=== PATIENT | female | born 1950 | race Asian ===

== ENCOUNTER 2023-04-22 11:18 | Outpatient (AMB) | payer MEDICARE, SELFPAY ==
--- NOTE | 2023-04-22 11:23 | AM.OFFWIN_ITS ---
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 Reports noticing very itchy rash with redness. She has been using Hydrocortisone OTC with no relief. [facility] Social History Patient Tobacco Use Status: Never used Tobacco Review of Systems Const All systems reviewed & are unremarkable except as noted in HPI and below Physical Exam Vital Signs: Last Vital Signs Temp 97.6 F 04/22/23 11:25 Pulse 85 04/22/23 11:25 BP 140/80 H 04/22/23 11:25 Pulse Ox 96 04/22/23 11:25 Oxygen Delivery Method Room Air 04/22/23 11:25 BMI result Body Mass Index 27.4 Const General: comfortable and no acute distress Skin General skin exam: erythema and Excoriation Rashes: rashes noted (GROIN REGION AND INNER THIGHS. ) Assessment & Plan Assessment & Plan (1) Intertrigo: Code(s): L30.4 - Erythema intertrigo Plan: - DDx: candid Intertrigo vs Eczema Intertrigo - Keeping the affected area clean and dry and using powder to reduce friction may help soothe skin inflammation. Wearing loose-fitting clothing and losing weight may also help. Medications: New clotrimazole-betamethasone 1-0.05 % APPLY A THIN LAYER TO THE AFFECTED REGION TWICE A DAY. 1 appl topical BID 45 grams 0RF L30.4 - Erythema intertrigo Coding Level of Care Code New Pt Level 3 (14715) Diagnoses Intertrigo L30.4 Time Spent (min) 15
[2023-04-22 11:25] VITALS: BP 140/80; PULSE 85; TEMP 36.4; O2SAT 96; BMI 27.4
== END 2023-04-22 12:16 | disposition home or self-care (01) ==
PROVIDERS: PCP Internal Medicine; Visit Provider Nurse Practitioner Family
DX: L30.4 Erythema intertrigo (principal)
CPT/HCPCS: 99203

== ENCOUNTER 2024-01-27 07:28 | Outpatient (REF) | payer MEDICARE, SELFPAY ==
[2024-01-27 11:04] LABS: Anion Gap 12 (12-20); Blood Urea Nitrogen 30 mg/dL (9-16); Calcium 9.2 mg/dL (8.4-10.2); Carbon Dioxide 25 mmol/L (22-29); Chloride 107 mmol/L (96-108); Estimated Glomerular Filt Rate > 60; Glucose Random 113 mg/dL (60-115); Magnesium 2.1 mg/dL (1.6-2.6); Phosphorus 4.2 mg/dL (2.7-4.5); Potassium 4.2 mmol/L (3.3-5.1); Sodium 140 mmol/L (135-145)
[2024-01-27 11:23] LABS: Vitamin D 25-OH Total 76.7 ng/mL (>30)
[2024-01-27 13:53] LABS: Alanine Aminotransferase 37 U/L (0-31); Aspartate Amino Transferase 33 U/L (5-31); Cholesterol 185 mg/dL (<200); HDL Cholesterol 43 mg/dL (>40); LDL Cholesterol Calculated 108 mg/dL (<100); Triglycerides 170 mg/dL (<150)
[2024-01-27 14:40] LABS: Folate 11.7 ng/mL (> or = 4.0); Vitamin B12 1574 pg/mL (200-900)
[2024-02-02 05:44] LABS: Collagen Type I C-Telopeptide 96 pg/mL (see note)
== END 2024-01-27 07:29 | disposition home or self-care (01) ==
LOC: HO.HMGCLDS 07:28
PROVIDERS: Pediatrics; PCP Internal Medicine; Referring Provider Internal Medicine; Visit Provider Internal Medicine Endocrinology, Diabetes & Metabolism
DX: M81.0 Age-related osteoporosis without current pathological fracture (principal); Z78.0 Asymptomatic menopausal state; E78.5 Hyperlipidemia, unspecified; I10 Essential (primary) hypertension; Z79.899 Other long term (current) drug therapy
CPT/HCPCS: 36415; 80048; 80061; 82306; 82523; 82607; 82746; 83735; 84100; 84450; 84460; 96127; 99202

== ENCOUNTER 2024-01-27 08:13 | Outpatient (AMB) | payer MEDICARE, SELFPAY ==
[2024-01-27 08:13] VITALS: BP 132/80; PULSE 64; O2SAT 95; BMI 26.3
--- NOTE | 2024-01-27 08:13 | A.OFFPC_ITS ---
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 Intake Note: Pt is here today to est care/HTN Allergies No Known Allergies Allergy (Verified 01/27/24 08:22) Medication List - Last Reconciled 01/27/24 by Adele Asencio MD atorvastatin 20 mg PO DAILY lisinopril-hydrochlorothiazide 20-12.5 mg 1 tab PO DAILY Tobacco use date assessed: 01/27/24 Fall risk assessment: No Falls in past year Last assessed Fall Risk: 01/27/24 Dental Screening Dental Screen Date: 01/27/24 Did you have a dental visit in the last 12 months?: Yes Did you have a dental problem in the last 6 months where you did not have access to dental care?: Yes Was dental information given to patient?: Patient has dentist HPI 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 She has hypertension and hyperlipidemia, currently on lisinopril-HCTZ and atorvastatin. Reviewed results of labs ordered by her previous PCP earlier this year which showed normal comprehensive metabolic panel, CBC, vitamin-D and fasting glucose level She is up-to-date with her yearly flu vaccine and already received her Prevnar 20. [facility] [place] Medical History (Updated 01/29/24 @ 01:37 by Adele Asencio MD) Osteoporosis History of cholelithiasis Dyslipidemia Essential hypertension Surgical History (Updated 01/29/24 @ 01:37 by Adele Asencio MD) Hx of colonoscopy History of left breast biopsy History of laparoscopic cholecystectomy Family History (Updated 01/27/24 @ 08:37 by Adele Asencio MD) Brother Diabetes mellitus Essential hypertension Sister Diabetes mellitus Essential hypertension Breast cancer, Onset Age: 70 Mother Essential hypertension Father Essential hypertension Social History Housing: Other Patient Tobacco Use Status: Never used Tobacco service: No Current occupational status: retired Cognitive needs: No Hearing needs: No Vision needs: Yes Questionnaire PHQ-9 Over the last 2 weeks, how often have you been bothered by any of the following problems? 1. Little interest or pleasure in doing things: not at all 2. Feeling down, depressed, or hopeless: not at all 3. Trouble falling or staying asleep, or sleeping too much: not at all 4. Feeling tired or having little energy: not at all 5. Poor appetite or overeating: not at all 6. Feeling bad about yourself - or that you are a failure or have let yourself or your family down: not at all 7. Trouble concentrating on things, such as reading the newspaper or watching television: not at all 8. Moving or speaking so slowly that other people could have noticed. Or the opposite - being so fidgety or restless that you have been moving around a lot more than usual: not at all 9. Thoughts that you would be better off or of hurting yourself in some way: not at all Total score: 0 Depression Screening Interpretation: Negative Depression Screening Done: Yes 82287 - PHQ-9 Billing: Yes Source: Developed by Drs. Orlin Oshea, Gladys Camara, Jose Arita and colleagues, with an educational sally from [employer]. Thrive Questionnaire Date Thrive assessed: 01/27/24 I am a: Patient What is your living situation today?: I have a steady place to live Within the past 12 months, did the food you bought not last and you didn't have the money to get more?: Sometimes True Within the past 12 months, did you worry whether your food would run out before you got money to buy more?: Sometimes True Do you have trouble paying for medicines?: Yes Do you have trouble getting transportation to medical appointments?: No Do you have trouble paying your heating and electricity bill?: No Do you have trouble taking care of your child, family member or friend?: No Do you have trouble with day-to-day activities such as bathing, preparing meals, shopping, managing finances, etc.?: No Are you currently unemployed and looking for a job?: No Are you interested in more education?: Yes THRIVE Score: 2 AUDIT C Alcohol Use Questionnaire (AUDIT-C) 1. How often do you have a drink containing alcohol?: Never Total Score: 0 ERROL-7 AMB Questionnaire ERROL-7 Date ERROL - 7 assessed: 01/27/24 Feeling nervous, anxious, or on edge: 0 = Not at all Not being able to stop or control worryin = Not at all Worrying too much about different things: 0 = Not at all Trouble relaxin = Not at all Being so restless that it is hard to sit still: 0 = Not at all Becoming easily annoyed or irritable: 0 = Not at all Feeling afraid as if something awful might happen: 0 = Not at all Total ERROL-7 score (0-4 normal; 5-9 mild; 10-14 moderate; 15-21 severe): 0 Source: Developed by Drs. Orlin Oshea, Gladys Camara, Jose Arita and colleagues, with an educational sally from [employer]. ERROL-7 Assessment Billing ERROL-7 Assessment Tool: ERROL-7 Assessment 01933 Review of Systems Const Denies fatigue, Denies headache(s) and Denies weakness Eyes Denies change in vision and Reports requires corrective lenses ENT Denies dizziness, Denies headache(s) and Denies nasal congestion Card Denies chest pain, Denies lightheadedness, Denies palpitations and Denies d yspnea Resp Denies chest congestion, Denies cough, Denies dyspnea and Denies wheezing GI Denies abdominal pain, Denies change in bowel habits and Denies heartburn Denies hematuria, Denies urinary frequency, Denies dysuria and Denies urinary urgency Musc Reports no additional complaints Skin/Breast Denies breast pain, Denies breast mass, Denies lesions and Denies rash Neuro Denies dizziness, Denies headache(s) and Denies weakness Psych Reports no additional complaints Endo Denies fatigue, Denies polydipsia, Denies polyuria and Denies palpitations Graham/Lymph Denies easy bruising Aller/Immun Denies seasonal rhinorrhea and Denies wheezing Physical exam (Primary Care) Vital Signs: Last Vital Signs Pulse 64 01/27/24 08:13 BP 132/80 01/27/24 08:13 Pulse Ox 95 01/27/24 08:13 Oxygen Delivery Method Room Air 01/27/24 08:13 BMI result Body Mass Index 26.3 Tobacco/Smoking Status: Tobacco use Status Tobacco use date assessed 01/27/24 01/27/24 08:20 Patient Tobacco Use Status Never used Tobacco 01/27/24 08:20 PHQ-9: PHQ-9 Score PHQ-9: Total score 0 01/27/24 09:11 Depression Screening Interpretation: Negative Thrive Assessment: Date of Thrive Assessment Date Thrive assessed 01/27/24 01/27/24 09:14 Const General: no acute distress and alert Orientation/consciousness: patient oriented x3 HENMT Ears: external ears normal General nose exam: No nasal discharge present Mouth: Normal oral and palatal mucosa present and moist mucous membranes Eyes General: appearance normal, both eyes and all related structures Neck Neck: Yes full ROM, Yes no lymphadenopathy and Yes supple Chest Other: Faint surgical Scar upper quadrant of left breast Breast/axilla palpation: normal palpation of the breasts Resp Effort & Inspection: normal respiratory effort and able to speak in complete sentences Auscultation: clear to auscultation bilaterally Cardio Rate: regular rate Rhythm: regular rhythm Heart sounds: S1 normal heart sound present and S2 normal heart sound present GI Palpation (GI): Soft to palpation, nontender and no masses Auscultation: normal bowel sounds General: Yes no CVA tenderness Back/Spine/Pelvis Back: no CVA tenderness and No back tenderness Skin General skin exam: no rashes or lesions noted Neuro General: patient oriented x3, gait normal, tone normal, moves all extremities, Normal light touch and pain sensation and no focal motor deficits Cranial nerves: Yes CN's II-XII intact bilaterally Cognition (Neuro): normal cognition Extrem General: Yes full ROM, Yes no joint enlargement and Yes no clubbing, cyanosis or edema Psych Appearance: grossly normal and well kempt Mental Status: mental status grossly normal Speech and movement: Normal speech and movement present Affect: normal affect Attitude: cooperative Thought process: Normal thought process present Thought content: Normal thought content present Coding Level of Care Code New Pt Level 4 (80698) Complex EM visit Add On G2211 Diagnoses Dyslipidemia E78.5 Essential hypertension I10 Additional Codes PHQ-9 - 23892 - PHQ-9 Billing: Yes ([id number]) ERROL-7 Assessment Billing - ERROL-7 Assessment Tool: ERROL-7 Assessment 41316 ([id number]) Assessment & Plan Assessment & Plan (1) Dyslipidemia: Code(s): E78.5 - Hyperlipidemia, unspecified Category: Medical Plan: Fasting lipid panel ordered, continue atorvastatin 20 mg daily (2) Essential hypertension: Code(s): I10 - Essential (primary) hypertension Category: Medical Plan: Blood pressure at goal of less than 130/80. Continue with current medication. Reinforced importance of following a low sodium diet, getting regular exercise, and lowering stress levels. Basic metabolic panel ordered Orders: Orders Basic Metabolic Panel Fasting 01/27/24 E78.5 - Hyperlipidemia, unspecified, I10 - Essential (primary) hypertension Aspartate Amino Transferase 01/27/24 E78.5 - Hyperlipidemia, unspecified, I10 - Essential (primary) hypertension Alanine Aminotransferase 01/27/24 E78.5 - Hyperlipidemia, unspecified, I10 - Essential (primary) hypertension Lipid Panel 01/27/24 E78.5 - Hyperlipidemia, unspecified, I10 - Essential (primary) hypertension Vitamin D 25-OH Total 01/27/24 M81.0 - Age-related osteoporosis without current pathological fracture, Z78.0 - Asymptomatic menopausal state Vitamin B12 and Folate 01/27/24 M81.0 - Age-related osteoporosis without current pathological fracture, Z78.0 - Asymptomatic menopausal state
== END 2024-01-27 10:18 | disposition home or self-care (01) ==
PROVIDERS: PCP Internal Medicine; Visit Provider Internal Medicine
DX: E78.5 Hyperlipidemia, unspecified (principal); I10 Essential (primary) hypertension

== ENCOUNTER 2024-04-10 10:12 | Outpatient (REF) | payer MEDICARE, SELFPAY ==
[2024-04-10 13:08] LABS: Anion Gap 11 (12-20); Blood Urea Nitrogen 13 mg/dL (9-16); Calcium 9.2 mg/dL (8.4-10.2); Carbon Dioxide 28 mmol/L (22-29); Chloride 107 mmol/L (96-108); Estimated Glomerular Filt Rate > 60; Glucose Fasting 96 mg/dL (60-99); Sodium 142 mmol/L (135-145)
[2024-04-10 13:28] LABS: Vitamin D 25-OH Total 57.1 ng/mL (>30)
== END 2024-04-10 10:13 | disposition home or self-care (01) ==
LOC: HO.HMGCLDS 10:12
PROVIDERS: PCP Internal Medicine; Visit Provider Internal Medicine
DX: I10 Essential (primary) hypertension (principal); E78.5 Hyperlipidemia, unspecified; M81.0 Age-related osteoporosis without current pathological fracture; Z78.0 Asymptomatic menopausal state
CPT/HCPCS: 36415; 80048; 82306

== ENCOUNTER 2024-04-13 07:55 | Outpatient (AMB) | payer MEDICARE, SELFPAY ==
[2024-04-13 08:03] VITALS: BP 112/64; PULSE 64; RESP 16; TEMP 36.7; O2SAT 96; BMI 27.4
--- NOTE | 2024-04-13 08:03 | A.OFFVIS_ITS ---
Intake Vital Signs 04/13/24 08:03 Height 5 ft 2 in Weight 150 lb BMI 27.4 BP 112/64 Blood Pressure Location Rt brachial Position Sitting Respiration 16 Pulse 64 Pulse Source Pulse Oximeter Temp 98.1 F Temp Source Oral Pulse Oximetry (%) 96 Oxygen Delivery Method Room Air Intake Visit Reasons: [id number] Intake Note: Pt is here today for her AWV:Last mammogram 11/05/23 Allergies No Known Allergies Allergy (Verified 04/13/24 08:19) Medication List - Last Reconciled 04/13/24 by Adele Asencio MD atorvastatin 20 mg PO DAILY lisinopril-hydrochlorothiazide 20-12.5 mg 1 tab PO DAILY HPI [id number] HPI Details AWV ? 73-year-old lady , with past medical history for hypertension, dyslipidemia and osteoporosis, presents today for her ? Annual Wellness Visit, initial visit.? She is up-to-date with her screening mammogram, last done 08/12/2023 with benign findings. Bones density scan was 05/14/2023, which showed presence of osteoporosis in lumbar spine femoral neck and left radius. Currently not on any medication. She was started on Prolia by previous PCP, 1st dose was given 06/2023, 2nd dose received 01/2024, due for her next dose in 07/09/2024. Patient would like a referral to see a endocrine specialist in the area. No history of fracture. She is up-to-date with her screening colonoscopy done in [place], copy of report requested She had her last fasting lipid levels checked 01/27/2024 which showed presence of normal LDL but elevated triglycerides. She had a fasting blood sugar done recently which came back within normal limits. Her blood pressure is stable and controlled on lisinopril-hydrochlorothiazide. She is up-to-date with her flu vaccine, COVID vaccine and pneumonia vaccination. Patient also states that she had her shingles vaccination done in [place], received 2 doses. ? Medical / Social History Reviewed? Past Medical History ?Yes . ? [place] of Care / Care Team list updated ?Yes . ? Surgical/Hospitalization History ?Yes . ? Current Medications (including OTC and supplements) ?Yes . ? Family History ?Yes . ? Tobacco Control form ?Yes . ? AUDIT-C (Alcohol use) form ?Yes . ? Illicit drug use in Social History ?Yes . ? Current diagnosis of depression? ?No ? Appropriate PHQ2/PHQ9 completed ?Yes . ? Data entered by ?[employer] and reviewed by provider ? Fall Risk ? Fall History? Have you had any falls with injury in the past year? ?No . ? Have you had two or more falls in the past year? ?No . ? Fall Risk Assessment: ?No falls in the past year . ? HRA filled out by the patient, reviewed by Provider and scanned. ? AWV ? Balance? Romberg ?negative ? Tandem walk ?Yes . ? Walk and Turn ?Yes . ? Rise from sit to stand ?Yes . ?Vision? Corrective lens ?Yes ? Vision screen ? previously seen by her eye doctor in [facility], has an appointment to establish care with a an eye doctor here in [place], appointment made with [facility] 07/2024 ?Hearing? Whisper test ?pass . ?Written Plan?Completed. See Patient Documents.? PFSH Medical History Osteoporosis History of cholelithiasis Dyslipidemia Essential hypertension Surgical History Hx of colonoscopy History of left breast biopsy History of laparoscopic cholecystectomy Family History Brother Diabetes mellitus Essential hypertension Sister Diabetes mellitus Essential hypertension Breast cancer, Onset Age: 70 Mother Essential hypertension Father Essential hypertension Social History Housing: Other Patient Tobacco Use Status: Never used Tobacco service: No Current occupational status: retired Cognitive needs: No Hearing needs: No Vision needs: Yes Questionnaire Medicare Wellness Checkup [age] What gender do you identify with?: female During the past 4 weeks, how much have you been bothered by emotional problems such as feeling anxious, depressed, irritable, sad or downhearted, and blue?: not at all During the past 4 weeks, has your physical & emotional health limited your social activities with family, friends, neighbors, or groups?: not at all During the past 4 weeks, how much bodily pain have you generally had?: no pain During the past 4 weeks, was someone available to help you if you needed & wanted help?: yes, as much as I wanted During the past 4 weeks, what was the hardest physical activity you could do for at least 2 minutes?: very heavy Can you get to places out of walking distance without help? (For eg., can you travel alone on buses, taxis or drive your car?): Yes Can you go shopping for groceries or clothes without someone's help?: Yes Can you prepare your own meals?: Yes Can you do your housework without help?: Yes Because of any health problems, do you need the help of another person with your personal care needs such as eating, bathing, dressing or getting around the house?: No Can you handle your own money without help?: Yes During the past 4 weeks, how would you rate your health in general?: very good During the past 4 weeks how have things been going for you?: very well; could hardly better Are you having difficulties driving your car?: not applicable, I don't use a car Do you always fasten your seat belt when you are in a car?: yes, usually During past 4 weeks, have you been bothered by the following: never: Falling or dizzy when standing up, Sexual problems?, Trouble eating well? and Problems using the telephone? and sometimes: Teeth or denture problems? and Tiredness or fatigue? Have you fallen 2 or more times in the past year?: Yes Are you afraid of falling?: Yes Are you a smoker?: no During the past 4 weeks, how many drinks of wine, beer, or other alcoholic beverages did you have?: no alcohol at all Do you exercise for about 20 minutes 3 or more times a week?: yes, most of the time Have you been given information to help with the following?: yes: Hazards in your house that might hurt you? and yes: Keeping track of your medications? How often do you have trouble taking medicines the way you have been told to take them?: I always take medicine as prescribed How confident are you that you can control & manage most of your health problems?: somewhat confident What is your race?: Mini Mental State Exam (MMSE) Orientation What is the (year) (season) (date) (day) (month)?: year (2024), season (winter), date (04/13/3034), day () and month (march) Where are we (state) (county) (town or city) (hospital) (floor)?: state ([place]), county ([place]), town or city ([place]) and floor ([facility]) Score Score: 9 Activity of Daily Living Bathing - sponge bath, tub bath or shower: receives no assistance (gets in/out by self, if usual bathing means Dressing - getting clothes from closets & drawers, including inner/outer garments & fasteners.: gets clothes & gets completely dressed without help Toileting - going to the 'toilet room' for urine/bowel elimination & cleaning self/arranging clothes: goes to toilet room, cleans self, arranges clothes without help Transfer: moves in & out of bed and chair without help (may use support object) Continence: has occasional 'accidents' Feeding: feeds self without help Total Score: 0 Information obtained from: patient Using telephone: independent Traveling: independent Shopping: independent Preparing meals: independent Housework: independent Taking medicine: independent Managing money: independent PHQ-9 Over the last 2 weeks, how often have you been bothered by any of the following problems? 1. Little interest or pleasure in doing things: not at all 2. Feeling down, depressed, or hopeless: not at all 3. Trouble falling or staying asleep, or sleeping too much: not at all 4. Feeling tired or having little energy: not at all 5. Poor appetite or overeating: not at all 6. Feeling bad about yourself - or that you are a failure or have let yourself or your family down: not at all 7. Trouble concentrating on things, such as reading the newspaper or watching television: not at all 8. Moving or speaking so slowly that other people could have noticed. Or the opposite - being so fidgety or restless that you have been moving around a lot more than usual: not at all 9. Thoughts that you would be better off or of hurting yourself in some way: not at all Total score: 0 Depression Screening Interpretation: Negative Depression Screening Done: Yes 03325 - PHQ-9 Billing: Yes Source: Developed by Drs. Orlin Oshea, Gladys Camara, Jose Arita and colleagues, with an educational sally from [employer]. Review of Systems Const Denies fatigue, Denies headache(s) and Denies weakness Eyes Denies change in vision and Reports requires corrective lenses ENT Denies dizziness, Denies headache(s) and Denies nasal congestion Card Denies chest pain, Denies lightheadedness, Denies palpitations and Denies dyspnea Resp Denies chest congestion, Denies cough, Denies dyspnea and Denies wheezing GI Denies abdominal pain, Denies change in bowel habits and Denies heartburn Denies hematuria, Denies urinary frequency, Denies dysuria and Denies urinary urgency Musc Reports no additional complaints Skin/Breast Denies breast pain, Denies breast mass, Denies lesions and Denies rash Neuro Denies dizziness, Denies headache(s) and Denies weakness Psych Reports no additional complaints Endo Denies fatigue, Denies polydipsia, Denies polyuria and Denies palpitations Graham/Lymph Denies easy bruising Aller/Immun Denies seasonal rhinorrhea and Denies wheezing Physical Exam Vital Signs: Last Vital Signs Temp 98.1 F 04/13/24 08:03 Pulse 64 04/13/24 08:03 Resp 16 04/13/24 08:03 BP 112/64 04/13/24 08:03 Pulse Ox 96 04/13/24 08:03 Oxygen Delivery Method Room Air 04/13/24 08:03 BMI result Body Mass Index 27.4 Const General: no acute distress and alert Orientation/consciousness: patient oriented x3 HEENT Head: Yes normocephalic Ears: external ears normal General nose exam: Normal external nose present Face and sinus: Yes face symmetric Mouth: Normal oral and palatal mucosa present and moist mucous membranes Eyes General: appearance normal, both eyes and all related structures Neck Neck: Yes full ROM, Yes no lymphadenopathy and Yes supple Thyroid: Thyroid normal Resp Effort & Inspection: normal respiratory effort and able to speak in complete sentences Auscultation: clear to auscultation bilaterally Cardio Rate: regular rate Rhythm: regular rhythm Heart sounds: S1 normal heart sound present and S2 normal heart sound present GI Palpation (GI): Soft to palpation, nontender, no guarding and no masses Auscultation: normal bowel sounds Neuro General: patient oriented x3, gait normal, moves all extremities, Normal light touch and pain sensation, no focal motor deficits and CN's II-XI intact bilaterally Cognition (Neuro): normal cognition Gait exam (Neuro): Normal gait present Motor exam (neuro): 5/5 motor strength present throughout Extrem General: Yes normal to inspection, Yes full ROM, Yes no joint enlargement, Yes no pedal edema and Yes normal gait Assessment & Plan Assessment & Plan (1) Encounter for initial annual wellness visit in Medicare patient: Code(s): Z00.00 - Encounter for general adult medical examination without abnormal findings Plan: Medical wellness checklist reviewed, discussed with patient and updated. Up-to-date with all her vaccines and routine screenings scheduled screening mammogram to be done at [facility] . Fasting lipid panel and fasting blood sugar ordered (2) Osteoporosis: Comment: Had Evenity for 1 year then started Prolia had 2 doses already, given by an Dr Bk [facility] in [facility] Code(s): M81.0 - Age-related osteoporosis without current pathological fracture Qualifiers: Osteoporosis type: age-related Presence of current pathological fracture: without current pathological fracture Qualified Code(s): M81.0 - Age- related osteoporosis without current pathological fracture Plan: Patient is due in June for her 3rd dose of Prolia, patient requesting referral to an endocrine specialist here in the area, referral ordered (3) Essential hypertension: Code(s): I10 - Essential (primary) hypertension Plan: Blood pressure stable and controlled. Continue lisinopril HCTZ 20-2400 mg taken once a day in a.m. (4) Dyslipidemia: Code(s): E78.5 - Hyperlipidemia, unspecified Plan: Fasting lipid panel ordered, atorvastatin 20 mg daily to be continued (5) Encounter for counseling regarding advance directives: Code(s): Z71.89 - Other specified counseling Plan: Initiated the conversation about Advanced Directives. Advanced Directives help patients prepare for current and future decisions about their medical treatment and place of care. Discussed with patient that it is a process where a patients current condition and prognosis are reviewed, their wishes for information regarding their illness are elicited, and likely medical dilemmas are presented and options discussed. Healthcare proxy form and MOLST form completed today. These forms can be amended as needed, reviewed yearly and make changes as needed Orders: Orders Complete Blood Count Auto Diff 04/13/24 E78.5 - Hyperlipidemia, unspecified, I10 - Essential (primary) hypertension, M81.0 - Age-related osteoporosis without current pathological fracture Lipid Panel 04/13/24 E78.5 - Hyperlipidemia, unspecified, I10 - Essential (primary) hypertension, M81.0 - Age-related osteoporosis without current pathological fracture MM tomosynthesis screening BI 04/13/24 Z12.31 - Encounter for screening mammogram for malignant neoplasm of breast Referrals Endocrinology Referral M81.0 - Age-related osteoporosis without current pathological fracture Quality Reporting (2019) Depression/Bipolar (159/160/161/177) PHQ-9: Total score: 0 Coding Level of Care Code Medicare First (G0438) Est Pt Level 4 (39125) Diagnoses Encounter for initial annual wellness visit in Medicare patient Z00.00 Age-related osteoporosis without current pathological fracture M81.0 Osteoporosis type: age-related Presence of current pathological fracture: without current pathological fracture Essential hypertension I10 Dyslipidemia E78.5 Encounter for counseling regarding advance directives Z71.89 CPT Codes Advance Care Planning - Time spent: 16-45 minutes ([id number]) Additional Codes PHQ-9 - 54394 - PHQ-9 Billing: Yes ([id number]) Advance Care Planning Advance Care Planning discussion: Completed/Scanned Date of discussion: 04/13/24 Who was present: Patient Forms completed: Health Care Proxy and MOLST Time spent: 16-45 minutes Actual minutes spent: 16
== END 2024-04-13 08:58 | disposition home or self-care (01) ==
PROVIDERS: PCP Internal Medicine; Visit Provider Internal Medicine
DX: Z00.00 Encounter for general adult medical examination without abnormal findings (principal); M81.0 Age-related osteoporosis without current pathological fracture; I10 Essential (primary) hypertension; E78.5 Hyperlipidemia, unspecified

== ENCOUNTER → 2024-04-13 07:55 | Outpatient (BNVA) | payer MEDICARE, SELFPAY | PROVIDERS: PCP Internal Medicine; Visit Provider Internal Medicine | DX: Z00.00 Encounter for general adult medical examination without abnormal findings (principal); M81.0 Age-related osteoporosis without current pathological fracture; E78.5 Hyperlipidemia, unspecified; I10 Essential (primary) hypertension; Z71.89 Other specified counseling | CPT/HCPCS: 96127; 99212; 99497 ==

== ENCOUNTER 2024-05-15 08:33 | Outpatient (REF) | payer MEDICARE, SELFPAY ==
--- OUTSIDE RECORDS SUMMARY | 2024-05-15 08:56 | XMS_ITS ---
Author Name [facility] Organization Unknown Results Test Name/Text Value Interpretation Date Range Source 25-HYDROXYVIT D TOT 30ng/mL Normal [id number] 30 - 80 [facility] THYROID STIMULATING HORMONE 0.98uIU/mL Normal [id number] 0.35 - 4.94 [facility] CARBON DIOXIDE (CO2) 31mmol/L Normal 806596916488 20 - 3 1 [facility] GLUCOSE 99mg/dL Normal [id number] 65 - 100 [facility] BLOOD UREA NITROGEN 14mg/dL Normal [id number] 9 - 23 [facility] CREATININE 0.8mg/dL Normal [id number] 0.5 - 1.3 [facility] ALBUMIN/GLOBULIN RATIO 1.5 Normal [id number] 1 - 2.2 [facility] TOTAL PROTEIN 7.8g/dL Normal [id number] 6.2 - 8.1 [facility] ALBUMIN 4.7g/dL Normal [id number] 3.5 - 5 [facility] ANION GAP 7 Normal [id number] 3 - 11 [facility] ALKALINE PHOSPHATASE 80U/L Normal [id number] 45 - 1 29 [facility] BILIRUBIN,TOTAL 1.1mg/dL Normal [id number] 0.2 - 1.2 [facility] POTASSIUM, SERUM 4.5mmol/L Normal [id number] 3.5 - 5.2 [facility] CALCIUM 9.3mg/dL Normal [id number] 8.4 - 10.5 [facility] AST/SGOT 22U/L Normal [id number] 0 - 34 [facility] ALT/SGPT 19U/L Normal [id number] 17 - 52 [facility] SODIUM 144mmol/L Normal [id number] 132 - 146 [facility] EST GLOMERULAR FILTRATION RATE > 60 Normal 518820394618 [facility] CHLORIDE 106mmol/L Normal [id number] 99 - 109 [facility] BUN/CREATININE RATIO 17.5 Normal [id number] 10 - 2 0 [facility] TRIGLYCERIDES LEVEL 173mg/dL Above high normal 958617426459 - 150 [facility] HDL CHOLESTEROL 45mg/dL Below low normal [id number] - [facility] CHOLESTEROL LEVEL 189mg/dL Normal [id number] - 200 [facility] LDL CALCULATED 109mg/dL Normal [id number] - 130 [facility] CHOLESTEROL RISK RATIO 4.2 Normal [id number] 2 - 4.5 [facility] BLOOD,URINE TRACE Normal [id number] - [facility] M KETONE, URINE NEGATIVE Normal [id number] - [facility] BILIRUBIN, URINE NEGATIVE Normal [id number] - [facility] NITRITE, URINE NEGATIVE Normal [id number] - [facility] UROBILINOGEN, URINE 0.2mg/dL Normal [id number] 0.2 - 1 [facility] COLOR, URINE YELLOW Normal [id number] [facility] APPEARANCE, URINE CLEAR Normal [id number] [facility] GLUCOSE, URINE (UA) NEGATIVE Normal [id number] - [facility] SPECIFIC GRAVITY,URINE 1.013 Normal [id number] 1.00 3 - 1.03 [facility] URINE LEUKOCYTE ESTERASE NEGATIVE Normal [id number] - [facility] PH,URINE 7 Normal [id number] 5 - 8 [facility] PROTEIN, URINE NEGATIVE Normal [id number] - [facility] GLYCATED HEMOGLOBIN 5.6% Normal [id number] 4 - 6 [facility] MEAN PLATELET VOLUME 9.4fL Normal [id number] 9 - 12 .8 [facility] MONO # 0.4K/mm3 Normal [id number] 0.1 - 1.1 [facility] BASO % 0.8% Normal [id number] 0 - 2 [facility] RED BLOOD COUNT 4.8M/mm3 Normal [id number] 3.9 - 5.1 C [facility] BASO # 0.1K/mm3 Normal [id number] 0 - 0.2 [facility] LYMPH % 21.3% Normal [id number] 15 - 42 [facility] EOS # 0K/mm3 Normal [id number] 0 - 0.5 [facility] EOS % 0.6% Normal [id number] 0 - 5 [facility] NUCLEATED RED BLOOD CELL 0K/mm3 Normal [id number] 0 - 0.012 [facility] MONO % 6.3% Normal [id number] 4 - 11 [facility] WHITE BLOOD COUNT 6.3k/mm3 Normal [id number] 4 - 10 [facility] MEAN CORPUSCULAR HEMOGLOBIN 29.8pg Normal [id number] 26.2 - 32.6 [facility] PLATELET COUNT 218K/mm3 Normal [id number] 130 - 385 [facility] IMMATURE GRANULOCYTE 0.3% Normal [id number] 0 - 0. 5 [facility] NEUTROPHILS % 70.7% Normal [id number] 46 - 75 [facility] MEAN CORPUSCULAR HGB CONC 33.3g/dL Normal [id number] 32.1 - 34.5 [facility] RED CELL DISTRIBUTION WIDTH 12.2% Normal [id number] 11.5 - 15.6 [facility] MEAN CORPUSCULAR VOLUME 89.4fL Normal [id number] 80 - 98 [facility] LYMPH # 1.3K/mm3 Normal [id number] 0.6 - 4.2 [facility] HEMATOCRIT 42.9% Normal [id number] 35.7 - 43.7 [facility] IMMATURE GRANULOCYTE 0.02K/mm3 Normal [id number] 0 - 0. 05 [facility] NUCLEATED RED BLOOD CELL 0% Normal [id number] 0 - 0.2 [facility] HEMOGLOBIN 14.3g/dL Normal [id number] 12 - 14.8 [facility] NEUTROPHILS # 4.5K/mm3 Normal [id number] 1.84 - 7.5 [facility] C-TELOPEPTIDE 433pg/mL Normal [id number] [facility] PROCOLLAGEN TYPE 1 40ug/L Normal [id number] [facility] 25-HYDROXYVIT D TOT 32ng/mL Normal [id number] 30 - 80 [facility] PHOSPHOROUS LEVEL 3.8mg/dL Normal [id number] 2.5 - 4.5 [facility] MAGNESIUM LEVEL 2.1mg/dL Normal [id number] 1.6 - 2.5 C [facility] ANION GAP 8 Normal [id number] 3 - 11 [facility] CARBON DIOXIDE (CO2) 29mmol/L Normal [id number] 20 - 3 1 [facility] GLUCOSE 94mg/dL Normal [id number] 65 - 100 [facility] POTASSIUM, SERUM 4.1mmol/L Normal [id number] 3.5 - 5.2 [facility] BLOOD UREA NITROGEN 11mg/dL Normal 9 - 23 [facility] CALCIUM 9.5mg/dL Normal 8.4 - 10.5 [facility] CREATININE 0.8mg/dL Normal 0.5 - 1.3 [facility] SODIUM 144mmol/L Normal 132 - 146 [facility] EST GLOMERULAR FILTRATION RATE > 60 Normal [facility] CHLORIDE 107mmol/L Normal 99 - 109 [facility] BUN/CREATININE RATIO 13.8 Normal 10 - 2 0 [facility] C-TELOPEPTIDE 544pg/mL Normal [id number] [facility] PROCOLLAGEN TYPE 1 67ug/L Normal [id number] [facility] MAGNESIUM LEVEL 2.2mg/dL Normal 1.6 - 2.5 [facility] ANION GAP 12 Above high normal [id number] 3 - 11 [facility] CARBON DIOXIDE (CO2) 24mmol/L Normal [id number] 20 - 3 1 [facility] GLUCOSE 97mg/dL Normal [id number] 65 - 100 [facility] POTASSIUM, SERUM 4mmol/L Normal [id number] 3.5 - 5.2 [facility] BLOOD UREA NITROGEN 14mg/dL Normal [id number] 9 - 23 [facility] CALCIUM 9.3mg/dL Normal [id number] 8.4 - 10.5 [facility] CREATININE 0.8mg/dL Normal [id number] 0.5 - 1.3 [facility] SODIUM 141mmol/L Normal [id number] 132 - 146 [facility] EST GLOMERULAR FILTRATION RATE > 60 Normal [id number] [facility] CHLORIDE 105mmol/L Normal [id number] 99 - 109 [facility] BUN/CREATININE RATIO 17.5 Normal [id number] 10 - 2 0 [facility] PHOSPHOROUS LEVEL 4.1mg/dL Normal [id number] 2.5 - 4.5 [facility] 25-HYDROXYVIT D TOT 32ng/mL Normal [id number] 30 - 80 [facility] SQUAMOUS EPITHELIAL URINE KANDICE 0-5 Normal [id number] [facility] RBC, URINE KANDICE 0-5 Normal [id number] 0 - 5 [facility] WBC, URINE KANDICE 0-[address] [facility] HYALINE CAST, URINE KANDICE 0-2 Normal 0 - 2 [facility] BACTERIA, URINE KANDICE NEGATIVE Normal - [facility] UROBILINOGEN, URINE 0.2mg/dL Normal 0.2 - 1 [facility] PROTEIN, URINE NEGATIVE Normal - [facility] BILIRUBIN, URINE NEGATIVE Normal - [facility] BLOOD,URINE SMALL Abnormal - [facility] GLUCOSE, URINE (UA) NEGATIVE Normal - [facility] SPECIFIC GRAVITY,URINE 1.012 Normal 1.00 3 - 1.03 [facility] COLOR, URINE YELLOW Normal [facility] APPEARANCE, URINE CLEAR Normal [facility] KETONE, URINE NEGATIVE Normal - [facility] NITRITE, URINE NEGATIVE Normal - [facility] PH,URINE 6 Normal 5 - 8 [facility] URINE LEUKOCYTE ESTERASE TRACE Abnormal - [facility] URIC ACID 7.8mg/dL Normal 3.1 - 9.2 [facility] ANION GAP 7 Normal 3 - 11 [facility] ALKALINE PHOSPHATASE 79U/L Normal 45 - 1 29 [facility] CARBON DIOXIDE (CO2) 29mmol/L Normal 20 - 3 1 [facility] BILIRUBIN,TOTAL 0.6mg/dL Normal 0.2 - 1.2 C [facility] GLUCOSE 102mg/dL Above high normal 65 - 100 [facility] POTASSIUM, SERUM 4.8mmol/L Normal 3.5 - 5.2 [facility] BLOOD UREA NITROGEN 15mg/dL Normal 9 - 23 [facility] CALCIUM 9.4mg/dL Normal 8.4 - 10.5 [facility] CREATININE 1mg/dL Normal 0.5 - 1.3 [facility] ALBUMIN/GLOBULIN RATIO 1.4 Normal 1 - 2.2 [facility] AST/SGOT 23U/L Normal 0 - 34 [facility] ALT/SGPT 22U/L Normal 17 - 52 [facility] SODIUM 142mmol/L Normal 132 - 146 [facility] EST GLOMERULAR FILTRATION RATE 55ml/min Normal [facility] TOTAL PROTEIN 7.5g/dL Normal 6.2 - 8.1 [facility] ALBUMIN 4.4g/dL Normal 3.5 - 5 [facility] CHLORIDE 106mmol/L Normal 99 - 109 [facility] BUN/CREATININE RATIO 15 Normal 10 - 2 0 [facility] ERYTHROCYTE SEDIMENTATION RATE 16mm/hr Normal 0 - 30 [facility] EOS # 0.1K/mm3 Normal 0 - 0.5 [facility] EOS % 1.4% Normal 0 - 5 [facility] NUCLEATED RED BLOOD CELL 0K/mm3 Normal 0 - 0.012 [facility] WHITE BLOOD COUNT 7.1k/mm3 Normal 4 - 10 [facility] MEAN CORPUSCULAR HEMOGLOBIN 29.2pg Normal 26.2 - 32.6 [facility] IMMATURE GRANULOCYTE 0.3% Normal 0 - 0. 5 [facility] RED CELL DISTRIBUTION WIDTH 12.6% Normal 11.5 - 15.6 [facility] MEAN CORPUSCULAR VOLUME 86.7fL Normal 80 - 98 [facility] IMMATURE GRANULOCYTE 0.02K/mm3 Normal 0 - 0. 05 [facility] NUCLEATED RED BLOOD CELL 0% Normal 0 - 0.2 [facility] MEAN PLATELET VOLUME 8.9fL Below low normal 9 - 12.8 [facility] MONO # 0.5K/mm3 Normal 0.1 - 1.1 [facility] BASO % 1% Normal 0 - 2 [facility] RED BLOOD COUNT 4.66M/mm3 Normal 3.9 - 5.1 C [facility] BASO # 0.1K/mm3 Normal 0 - 0.2 [facility] LYMPH % 16.9% Normal 15 - 42 [facility] MONO % 7% Normal 4 - 11 [facility] PLATELET COUNT 241K/mm3 Normal [id number] 130 - 385 [facility] NEUTROPHILS % 73.4% Normal [id number] 46 - 75 [facility] MEAN CORPUSCULAR HGB CONC 33.7g/dL Normal 32.1 - 34.5 [facility] LYMPH # 1.2K/mm3 Normal 0.6 - 4.2 [facility] HEMATOCRIT 40.4% Normal 35.7 - 43.7 [facility] HEMOGLOBIN 13.6g/dL Normal 12 - 14.8 [facility] NEUTROPHILS # 5.2K/mm3 Normal 1.84 - 7.5 [facility] PROCOLLAGEN TYPE 1 66ug/L Normal [id number] [facility] C-TELOPEPTIDE 559pg/mL Normal [id number] [facility] 25-HYDROXYVIT D TOT 25ng/mL Below low normal [id number] 30 - 80 [facility] PHOSPHOROUS LEVEL 4mg/dL Normal [id number] 2.5 - 4.5 [facility] ANION GAP 7 Normal [id number] 3 - 11 [facility] CARBON DIOXIDE (CO2) 29mmol/L Normal [id number] 20 - 3 1 [facility] GLUCOSE 88mg/dL Normal [id number] 65 - 100 [facility] POTASSIUM, SERUM 4.9mmol/L Normal [id number] 3.5 - 5.2 [facility] BLOOD UREA NITROGEN 12mg/dL Normal [id number] 9 - 23 [facility] CALCIUM 9.6mg/dL Normal [id number] 8.4 - 10.5 [facility] CREATININE 0.8mg/dL Normal [id number] 0.5 - 1.3 [facility] SODIUM 144mmol/L Normal [id number] 132 - 146 [facility] EST GLOMERULAR FILTRATION RATE > 60 Normal [id number] [facility] CHLORIDE 108mmol/L Normal [id number] 99 - 109 [facility] BUN/CREATININE RATIO 15 Normal [id number] 10 - 2 0 [facility] MAGNESIUM LEVEL 2mg/dL Normal [id number] 1.6 - 2.5 C [facility]
[2024-05-15 10:25] LABS: MANUAL DIFF FLAG NO
[2024-05-15 10:35] LABS: Basophils Percent Auto 0.5 % (0-2); Eosinophils Absolute Auto 0.1 X10*3/uL (0.0-0.4); Eosinophils Percent Auto 1.5 % (0-4); Hemoglobin 13.6 g/dl (12.0-16.0); Imm Gran Abs Auto 0.02 X10*3/uL (0.00-0.03); Imm Gran Pct Auto 0.3 % (0.0-0.4); Lymphocytes Absolute Auto 1.3 X10*3/uL (1.2-4.9); Lymphocytes Percent Auto 17.6 % (20-40); Mean Corpuscular HGB Conc 33.2 g/dl (31.0-35.0); Mean Corpuscular Hemoglobin 29.3 pg (27.0-33.0); Mean Corpuscular Volume 88.4 fL (80.0-98.0); Mean Platelet Volume 8.8 fL (9.4-12.3); Monocytes Absolute Auto 0.4 X10*3/uL (0.1-1.2); Monocytes Percent Auto 5.9 % (2-11); Neutrophils Absolute Auto 5.5 x10*3/uL (2.0-8.3); Neutrophils Percent Auto 74.2 % (45-73); Platelet Count 206 X10*3/uL (160-400); Red Blood Count 4.64 X10*6/uL (4.20-5.50); Red Cell Distribution Width 12.5 % (11.0-16.0); White Blood Count 7.4 X10*3/uL (4.8-10.8)
[2024-05-15 11:11] LABS: Cholesterol 181 mg/dL (<200); HDL Cholesterol 44 mg/dL (>40); LDL Cholesterol Calculated 97 mg/dL (<100); Triglycerides 204 mg/dL (<150)
== END 2024-05-15 08:34 | disposition home or self-care (01) ==
LOC: HO.HMGCLDS 08:33
PROVIDERS: PCP Internal Medicine; Visit Provider Internal Medicine
DX: M81.0 Age-related osteoporosis without current pathological fracture (principal); E78.5 Hyperlipidemia, unspecified; I10 Essential (primary) hypertension
CPT/HCPCS: 36415; 80061; 85025

== ENCOUNTER 2024-05-22 10:32 | Outpatient (AMB) | payer MEDICARE, SELFPAY ==
[2024-05-22 11:34] VITALS: BP 102/82; PULSE 62; RESP 16; TEMP 36.5; O2SAT 98; BMI 27.6
--- NOTE | 2024-05-22 11:34 | MHC.PC.OV ---
Vital Signs 05/22/24 11:34 Height 5 ft 2 in Weight 151 lb BMI 27.6 BP 102/82 Blood Pressure Location Lt brachial Position Sitting Respiration 16 Pulse 62 Pulse Source Pulse Oximeter Temp 97.7 F Temp Source Oral Pulse Oximetry (%) 98 Oxygen Delivery Method Room Air Intake Visit Reasons: 1m f/u labs Intake Note: Pt is here today for her 1mo. f/u Allergies No Known Allergies Allergy (Verified 05/22/24 12:04) Medication List - Last Reconciled 05/22/24 by Adele Asencio MD atorvastatin 20 mg PO DAILY lisinopril-hydrochlorothiazide 20-12.5 mg 1 tab PO DAILY Tobacco use date assessed: 05/22/24 Fall risk assessment: No Falls in past year Last assessed Fall Risk: 05/22/24 Dental Screening Dental Screen Date: 05/22/24 Did you have a dental visit in the last 12 months?: Yes Did you have a dental problem in the last 6 months where you did not have access to dental care?: No Was dental information given to patient?: Patient has dentist HPI 1m f/u labs HPI Details 73-year-old lady here today for follow-up on her hypertension and hyperlipidemia. She is currently taking atorvastatin 20 mg once a day and is on lisinopril hydrochlorothiazide 20-12.5 mg once daily. Has been compliant with getting regular exercise but admits to eating a lot of junk foods such as potato chips, cookies. Latest fasting labs showed higher triglyceride levels but LDL cholesterol is lower than last check. Blood pressure staying stable controlled on lisinopril HCTZ PFSH Medical History History of colon polyps Osteoporosis History of cholelithiasis Dyslipidemia Essential hypertension Surgical History Hx of colonoscopy History of left breast biopsy History of laparoscopic cholecystectomy Family History Brother Diabetes mellitus Essential hypertension Sister Diabetes mellitus Essential hypertension Breast cancer, Onset Age: 70 Mother Essential hypertension Father Essential hypertension Social History Housing: Other Patient Tobacco Use Status: Never used Tobacco e-Cigarette/Vaping Use: Never Used service: No Current occupational status: retired Cognitive needs: No Hearing needs: No Vision needs: Yes Questionnaire PHQ-9 Over the last 2 weeks, how often have you been bothered by any of the following problems? 1. Little interest or pleasure in doing things: not at all 2. Feeling down, depressed, or hopeless: not at all 3. Trouble falling or staying asleep, or sleeping too much: not at all 4. Feeling tired or having little energy: not at all 5. Poor appetite or overeating: not at all 6. Feeling bad about yourself - or that you are a failure or have let yourself or your family down: not at all 7. Trouble concentrating on things, such as reading the newspaper or watching television: not at all 8. Moving or speaking so slowly that other people could have noticed. Or the opposite - being so fidgety or restless that you have been moving around a lot more than usual: not at all 9. Thoughts that you would be better off or of hurting yourself in some way: not at all Total score: 0 Depression Screening Interpretation: Negative Depression Screening Done: Yes 30048 - PHQ-9 Billing: Yes Source: Developed by Drs. Orlin Oshea, Gladys Camara, Jose Arita and colleagues, with an educational sally from [employer]. Thrive Questionnaire Date Thrive assessed: 04/13/24 I am a: Patient What is your living situation today?: I have a steady place to live Within the past 12 months, did the food you bought not last and you didn't have the money to get more?: I choose not to answer this question Within the past 12 months, did you worry whether your food would run out before you got money to buy more?: I choose not to answer this question Do you have trouble paying for medicines?: I choose not to answer this question Do you have trouble getting transportation to medical appointments?: I choose not to answer this question Do you have trouble paying your heating and electricity bill?: I choose not to answer this question Do you have trouble taking care of your child, family member or friend?: I choose not to answer this question Do you have trouble with day-to-day activities such as bathing, preparing meals, shopping, managing finances, etc.?: I choose not to answer this question Are you currently unemployed and looking for a job?: I choose not to answer this question Are you interested in more education?: I choose not to answer this question Please select the resources that you would like help with: None Currently or been in a relationship where the following occur: I choose not to answer THRIVE Score: 0 AUDIT C Alcohol Use Questionnaire (AUDIT-C) 1. How often do you have a drink containing alcohol?: Never Total Score: 0 ERROL-7 AMB Questionnaire ERROL-7 Date ERROL - 7 assessed: 05/22/24 Feeling nervous, anxious, or on edge: 0 = Not at all Not being able to stop or control worryin = Not at all Worrying too much about different things: 0 = Not at all Trouble relaxin = Not at all Being so restless that it is hard to sit still: 0 = Not at all Becoming easily annoyed or irritable: 0 = Not at all Feeling afraid as if something awful might happen: 0 = Not at all Total ERROL-7 score (0-4 normal; 5-9 mild; 10-14 moderate; 15-21 severe): 0 Source: Developed by Drs. Orlin Oshea, Gladys Camara, Jose Arita and colleagues, with an educational sally from [employer]. ERROL-7 Assessment Billing ERROL-7 Assessment Tool: ERROL-7 Assessment 61740 Review of Systems Const Denies fatigue, Denies headache(s) and Denies weakness ENT Denies dizziness, Denies headache(s) and Denies nasal congestion Card Denies chest pain, Denies lightheadedness, Denies palpitations and Denies dyspnea Resp Denies chest congestion, Denies cough and Denies dyspnea GI Denies abdominal pain, Denies change in bowel habits and Denies heartburn Musc Reports no additional complaints Neuro Denies dizziness, Denies headache(s) and Denies weakness Endo Denies fatigue, Denies polydipsia, Denies polyuria and Denies palpitations Physical exam (Primary Care) Vital Signs: Last Vital Signs Temp 97.7 F 05/22/24 11:34 Pulse 62 05/22/24 11:34 Resp 16 05/22/24 11:34 BP 102/82 05/22/24 11:34 Pulse Ox 98 05/22/24 11:34 Oxygen Delivery Method Room Air 05/22/24 11:34 BMI result Body Mass Index 27.6 Tobacco/Smoking Status: Tobacco use Status Tobacco use date assessed 05/22/24 05/22/24 11:35 Patient Tobacco Use Status Never used Tobacco 05/22/24 11:35 e-Cigarette/Vaping Use Never Used 05/22/24 11:35 PHQ-9: PHQ-9 Score PHQ-9: Total score 0 05/22/24 12:04 Depression Screening Interpretation: Negative Thrive Assessment: Date of Thrive Assessment Date Thrive assessed 04/13/24 05/22/24 11:35 Currently or been in a relationship where the following occur: I choose not to answer Const General: no acute distress and alert Orientation/consciousness: patient oriented x3 HENMT Ears: external ears normal General nose exam: No nasal discharge present Mouth: Normal oral and palatal mucosa present and moist mucous membranes Eyes General: appearance normal, both eyes and all related structures Neck Neck: Yes full ROM, Yes no lymphadenopathy and Yes supple Chest Other: Faint surgical Scar upper quadrant of left breast Breast/axilla palpation: normal palpation of the breasts Resp Effort & Inspection: normal respiratory effort and able to speak in complete sentences Auscultation: clear to auscultation bilaterally Cardio Rate: regular rate Rhythm: regular rhythm Heart sounds: S1 normal heart sound present and S2 normal heart sound present GI Palpation (GI): Soft to palpation, nontender and no masses Auscultation: normal bowel sounds General: Yes no CVA tenderness Back/Spine/Pelvis Back: no CVA tenderness and No back tenderness Skin General skin exam: no rashes or lesions noted Neuro General: patient oriented x3, gait normal, tone normal, moves all extremities, Normal light touch and pain sensation and no focal motor deficits Cranial nerves: Yes CN's II-XII intact bilaterally Cognition (Neuro): normal cognition Extrem General: Yes full ROM, Yes no joint enlargement and Yes no clubbing, cyanosis or edema Psych Appearance: grossly normal and well kempt Mental Status: mental status grossly normal Speech and movement: Normal speech and movement present Affect: normal affect Attitude: cooperative Thought process: Normal thought process present Thought content: Normal thought content present Results Reviewed Results Reviewed: Name: Sari Carney Age/Sex: 73/F : 1950 Unit#: [id number] Attend Dr: Adele Asencio MD Re05/15/24 Status: DEP [facility]: SPEC : [id number] CASA: 05/15/24 STATUS: COMP REQ : [id number] RECD: 05/15/24-[address]: Adele Asencio MD COMP: 05/15/24 ENTERED: 05/15/24 [facility] DR: ORDERED: CBC Auto Diff Test Result Flag Reference WBC 7.4 4.8-10.8 X10*3/uL RBC 4.64 4.20-5.50 X10*6/uL HGB 13.6 12.0-16.0 g/dl HCT 41.0 37.0-47.0 % MCV 88.4 80.0-98.0 fL MCH 29.3 27.0-33.0 pg MCHC 33.2 31.0-35.0 g/dl RDW 12.5 11.0-16.0 % PLT 206 160-400 X10*3/uL MPV 8.8 L 9.4-12.3 fL Neut Pct Auto 74.2 H 45-73 % ImGran Pct Auto 0.3 0.0-0.4 % Lymp Pct Auto 17.6 L 20-40 % [place]rockmorton Pct Auto 5.9 2-11 % Eos Pct Auto 1.5 0-4 % Baso Pct Auto 0.5 0-2 % NRBC Pct Auto 0.0 0.0-0.2 /100WBC ANC Neut Abs # 5.5 2.0-8.3 x10*3/uL ImGran Abs Auto 0.02 0.00-0.03 X10*3/uL Lymph Abs Auto 1.3 1.2-4.9 X10*3/uL Throckmorton Abs Auto 0.4 0.1-1.2 X10*3/uL Eos Abs Auto 0.1 0.0-0.4 X10*3/uL Baso Abs Auto 0.0 0.0-0.2 X10*3/uL NRBC Abs Auto 0.000 0.0-0.012 X10*3/uL Laboratory Tests 05/15/24 08:40 Triglycerides 204 H Cholesterol 181 LDL Cholesterol, Calc 97 HDL Cholesterol 44 Coding Level of Care Code Est Pt Level 4 (99944) Complex EM visit Add On G2211 Diagnoses Essential hypertension I10 Dyslipidemia E78.5 Additional Codes PHQ-9 - 94296 - PHQ-9 Billing: Yes ([id number]) ERROL-7 Assessment Billing - ERROL-7 Assessment Tool: ERROL-7 Assessment 19370 ([id number]) Assessment & Plan Assessment & Plan (1) Essential hypertension: Code(s): I10 - Essential (primary) hypertension Category: Medical Plan: Blood pressure at goal of less than 130/80. Continue lisinopril HCTZ at same dose Reinforced importance of following a low sodium diet, getting regular exercise, and lowering stress levels. (2) Dyslipidemia: Code(s): E78.5 - Hyperlipidemia, unspecified Category: Medical Plan: Reviewed recent fasting lipid profile with patient with high triglycerides and lower LDL cholesterol compared to last check. . Continue atorvastatin 20 mg daily and add [place] 3 fatty acid supplements 1 capsule twice a day , in addition to adherence to low-cholesterol diet and regular exercise, at least 30 minutes 3 to 4 times a week. Advised patient to make healthy food choices, eat more fruits, vegetables, whole grains, wild caught fish and low-fat dairy. Limit amount of meat and fried or fatty food products, as well as processed foods and fast foods. Repeat another fasting lipid panel in 02/2025 Orders: Orders Lipid Panel 03/17/25 E78.5 - Hyperlipidemia, unspecified, I10 - Essential (primary) hypertension, M81.0 - Age-related osteoporosis without current pathological fracture Alanine Aminotransferase 03/17/25 E78.5 - Hyperlipidemia, unspecified, I10 - Essential (primary) hypertension, M81.0 - Age-related osteoporosis without current pathological fracture Aspartate Amino Transferase 03/17/25 E78.5 - Hyperlipidemia, unspecified, I10 - Essential (primary) hypertension, M81.0 - Age-related osteoporosis without current pathological fracture Vitamin D 25-OH Total 03/17/25 E78.5 - Hyperlipidemia, unspecified, I10 - Essential (primary) hypertension, M81.0 - Age-related osteoporosis without current pathological fracture Basic Metabolic Panel Fasting 03/17/25 E78.5 - Hyperlipidemia, unspecified, I10 - Essential (primary) hypertension, M81.0 - Age-related osteoporosis without current pathological fracture
== END 2024-05-22 12:36 | disposition home or self-care (01) ==
PROVIDERS: PCP Internal Medicine; Visit Provider Internal Medicine
DX: I10 Essential (primary) hypertension (principal); E78.5 Hyperlipidemia, unspecified

== ENCOUNTER → 2024-05-22 10:32 | Outpatient (BNVA) | payer MEDICARE, SELFPAY | PROVIDERS: PCP Internal Medicine; Visit Provider Internal Medicine | DX: I10 Essential (primary) hypertension (principal); E78.5 Hyperlipidemia, unspecified | CPT/HCPCS: 96127; 99212 ==

== ENCOUNTER 2024-06-01 10:50 | Outpatient (AMB) | payer MEDICARE, SELFPAY ==
--- NOTE | 2024-06-01 10:57 | A.OFFVIS_ITS ---
Vital Signs 06/01/24 11:00 Height 5 ft 2.39 in Weight 149 lb 4.047 oz BMI 27.0 BP 114/64 Blood Pressure Location Rt brachial Position Sitting Pulse 64 Pulse Source Pulse Oximeter Pulse Oximetry (%) 95 Oxygen Delivery Method Room Air Intake Visit Reasons: Age-related osteoporosis Intake Note: New patient internally referred by PCP for Age-related Osteoporosis. [facility], for follow-up and treatment on her osteoporosis in lumbar spine femoral neck and left radius. Received already 2 Prolia injections given by her endocrine specialist in [facility], last dose was 01/2024. Patient reports she is taking Vitamin D3 & Calcium, unsure what the doses are, will call office to update. 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 She has been diagnosed with osteoporosis for three years and was initially treated with Evenity for one year before transitioning to Prolia. She has received two doses of Prolia since June 2023. Notably, there has been no history of fractures in the hip or spine, and the patient has experienced a height reduction from 5'3 to 5'2 . Her family history is negative for osteoporosis or hip fractures. She denies the use of certain medications that could influence bone density and is up to date with dental examinations. The patient manages her calcium and vitamin D intake through diet and supplemen tation, which is reportedly maintaining her levels. First diagnosed in 3 yrs ago . Received treatment in the past with Evenity for 1 yr then Prolia , 2 doses . She was started on Prolia by previous PCP, 1st dose was given 06/2023, 2nd dose received 01/2024, due for her next dose in 07/09/2024. Tolerated treatment well without complication. No history of pathologic fracture or ONJ. Has several servings of dietary calcium per day in the form of cheese , bok sheri . Takes Calcium supplement ? mg daily in divided doses. Takes ? IU of Vitamin D daily. The patient occasionally consumes calcium-rich foods such as Northern Irish cheese, broccoli, and cheddar cheese, while avoiding cereal. She takes a combination supplement of calcium, magnesium, and zinc. A preference for obtaining calcium from dietary sources is noted, and she is advised to monitor calcium intake to reach a total of 1200 mg daily, supplementing as necessary. Additionally, she maintains her vitamin D levels through a combination of supplements. Denies ever using PPI, anticoagulant, antiepileptic or glucocorticoid medication. Does weight bearing exercise 5 days per week in the form of wt training . 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 UTD on dental cleanings and sees dentist every 6 months. No planned upcoming dental work or extractions. No smoking or ETOH use DXA dated 10/2023 :[place] TBS adjusted T Score =-3.8 Labs: [facility] Medical History History of colon polyps Osteoporosis History of cholelithiasis Dyslipidemia Essential hypertension Surgical History Hx of colonoscopy History of left breast biopsy History of laparoscopic cholecystectomy Family History Brother Diabetes mellitus Essential hypertension Sister Diabetes mellitus Essential hypertension Breast cancer, Onset Age: 70 Mother Essential hypertension Father Essential hypertension Social History Housing: Other Patient Tobacco Use Status: Never used Tobacco e-Cigarette/Vaping Use: Never Used service: No Current occupational status: retired Cognitive needs: No Hearing needs: No Vision needs: Yes Physical Exam Vital Signs: Last Vital Signs Pulse 64 06/01/24 11:00 BP 114/64 06/01/24 11:00 Pulse Ox 95 06/01/24 11:00 Oxygen Delivery Method Room Air 06/01/24 11:00 BMI result Body Mass Index 27.0 There are no Cushingoid features. Absence of blue sclera. Absence of kyphosis. Thyroid gland is of nl size and weighs 15 gms. There are no thyroid nodules palpated. Lungs CTA. Heart S1 S2 Reg R/R Abdominal exam benign. Muscle strength 5/5 . Examination of spine reveals absence of tenderness on palpation Assessment & Plan Assessment & Plan (1) Osteoporosis: Comment: Had Evenity for 1 year then started Prolia had 2 doses already, given by an Dr Bk Jackson in [place] Code(s): M81.0 - Age-related osteoporosis without current pathological fracture Category: Medical Qualifiers: Osteoporosis type: age-related Presence of current pathological fracture: without current pathological fracture Qualified Code(s): M81.0 - Age-related osteoporosis without current pathological fracture Plan: This is a 73-year-old female with a history of osteoporosis previously treated with a Evenity for 1 year and then transition to Prolia for 2 doses. Partial secondary workup was performed Plan is to check a phosphorus, free T4, TSH, SPEP, urine immunofixation, 24 hour urine for calcium and creatinine to complete secondary workup. Can try to obtain records from data management engineer in [facility] to see if some of the secondary workup was already performed Osteoporosis management includes ongoing treatment with Prolia, supplemented by calcium and vitamin D as necessary. Bone density monitoring is scheduled to guide future therapy adjustments. The risk of secondary osteoporosis was addressed with further testing planned. Careful follow-up and coordination with the nursing team ensure timely administration of Prolia and its monitoring. The patient had an opportunity to ask questions regarding treatment plan. The patient expressed understanding and agreement with the above treatment plan. Would re-evaluate DEXA bone density in yr and half when covered to determine length of Prolia rherapy I discussed the patient's current osteoporosis management, including her ongoing use of Prolia and its importance in preventing bone loss. I highlighted the need for adequate calcium and vitamin D intake. We explored the possibility of needing continuation or transition to other osteoporosis therapies based on future bone density results. Potential risks and rebound effects associated with abruptly discontinuing Prolia were explained, emphasizing adherence to the treatment plan. The patient expressed understanding. Additionally, a 24-hour urine collection and blood tests were emphasized for further assessment. We reviewed the importance of regular follow-up appointments and maintaining communication with the healthcare team. - Continue taking Prolia as directed, with the next dose scheduled in June 2024. - Aim for a daily calcium intake of 1200 mg through diet and supplements; keep a log of dietary calcium intake if necessary. - Maintain vitamin D supplementation as it is currently effective. - Perform weightbearing exercises regularly, five days a week. - Complete the 24-hour urine collection when convenient and return it to the laboratory. - Schedule a follow-up blood test approximately two weeks before the next Prolia injection. - Monitor for and report any new symptoms or side effects as soon as they arise. - Patient was informed and verbally consented to the use of an ambient scribe for clinic note documentation during this visit. Orders: Orders Phosphorus Today M81.0 - Age-related osteoporosis without current pathological fracture Free T4 (Free Thyroxine) Today M81.0 - Age-related osteoporosis without current pathological fracture Protein Electrophoresis, Serum Today M81.0 - Age-related osteoporosis without current pathological fracture Calcium, 24 Hr Ur Today M81.0 - Age-related osteoporosis without current pathological fracture Immunofixation, Random Urine Today M81.0 - Age-related osteoporosis without current pathological fracture Calcium Today M81.0 - Age-related osteoporosis without current pathological fracture Basic Metabolic Panel Today M81.0 - Age-related osteoporosis without current pathological fracture Thyroid Stimulating Hormone Today M81.0 - Age-related osteoporosis without current pathological fracture Creatinine, 24 Hr Group Today M81.0 - Age-related osteoporosis without current pathological fracture Albumin Level Today M81.0 - Age-related osteoporosis without current pathological fracture Coding Level of Care Code New Pt Level 4 (93952) Diagnoses Age-related osteoporosis without current pathological fracture M81.0 Osteoporosis type: age-related Presence of current pathological fracture: without current pathological fracture
[2024-06-01 11:00] VITALS: BP 114/64; PULSE 64; O2SAT 95; BMI 27.0
== END 2024-06-01 11:41 | disposition home or self-care (01) ==
LOC: HO.ENCR 10:51
PROVIDERS: PCP Internal Medicine; Visit Provider Internal Medicine Endocrinology, Diabetes & Metabolism
DX: M81.0 Age-related osteoporosis without current pathological fracture (principal)
CPT/HCPCS: 99204

== ENCOUNTER → 2024-06-01 10:50 | Outpatient (BNVA) | payer MEDICARE, SELFPAY | PROVIDERS: PCP Internal Medicine; Visit Provider Internal Medicine Endocrinology, Diabetes & Metabolism | DX: M81.0 Age-related osteoporosis without current pathological fracture (principal) | CPT/HCPCS: 99202 ==

== ENCOUNTER 2024-06-19 09:46 | Outpatient (REF) | payer MEDICARE, SELFPAY ==
[2024-06-19 11:45] LABS: Albumin Level 4.2 g/dL (3.5-5.0); Anion Gap 11 (12-20); Blood Urea Nitrogen 16 mg/dL (9-16); Calcium 9.1 mg/dL (8.4-10.2); Carbon Dioxide 29 mmol/L (22-29); Chloride 107 mmol/L (96-108); Estimated Glomerular Filt Rate > 60; Glucose Random 113 mg/dL (60-115); Phosphorus 2.9 mg/dL (2.7-4.5); Potassium 3.7 mmol/L (3.3-5.1); Sodium 143 mmol/L (135-145)
[2024-06-19 11:48] LABS: Free T4 (Free Thyroxine) 0.91 ng/dL (0.71-1.85); Thyroid Stimulating Hormone 0.99 uIU/mL (0.32-4.0)
[2024-06-19 13:05] LABS: Creatinine, mg/dL 51.94
[2024-06-19 15:03] LABS: Total Volume 24 Hour Urine 1950 mL
[2024-06-20 21:03] LABS: Prot Elec - Albumin 4.6 g/dL (3.8-4.8); Prot Elec - Alpha1 0.2 g/dL (0.2-0.3); Prot Elec - Alpha2 0.6 g/dL (0.5-0.9); Prot Elec - Beta 1 0.4 g/dL (0.4-0.6); Prot Elec - Beta 2 0.4 g/dL (0.2-0.5); Prot Elec - Gamma 1.1 g/dL (0.8-1.7); Prot Elec - Total Protein 7.2 g/dL (6.1-8.1)
[2024-06-21 16:05] LABS: Calcium, 24 Hr Urine 113 mg/24 h; Calcium/Creatinine Ratio 107 mg/g creat (30-275); Creatinine 24Hr Urine 1.05 g/24 h (0.50-2.15)
== END 2024-06-19 09:47 | disposition home or self-care (01) ==
LOC: HO.10HDL 09:46
PROVIDERS: Visit Provider Internal Medicine Endocrinology, Diabetes & Metabolism
DX: M81.0 Age-related osteoporosis without current pathological fracture (principal)
CPT/HCPCS: 80048; 82040; 82340; 82570; 84100; 84165; 84439; 84443; 86335

== ENCOUNTER 2024-07-05 08:15 | Outpatient (REF) | payer MEDICARE, SELFPAY ==
[2024-07-05 11:28] LABS: Calcium 9.7 mg/dL (8.4-10.2)
== END 2024-07-05 08:16 | disposition home or self-care (01) ==
LOC: HO.10HDL 08:15
PROVIDERS: Visit Provider Internal Medicine Endocrinology, Diabetes & Metabolism
DX: M81.0 Age-related osteoporosis without current pathological fracture (principal)
CPT/HCPCS: 36415; 82310

== ENCOUNTER 2024-07-19 13:43 | Outpatient (AMB) | payer MEDICARE, SELFPAY ==
--- NOTE | 2024-07-19 14:09 | AM.OFFVISNUR ---
Intake Visit Reasons: Prolia injection Allergies No Known Allergies Allergy (Verified 06/01/24 11:01) Office Meds Prolia 60 mg/mL subcutaneous syringe Performing Provider: Orlin Egan MD Performing Location: [facility] Endocrinology Administered by: Lyssa Dotson RN on 07/19/24 14:09 Dose Route Admin Location Dispensed Lot Number Expiration Date ND Soaker Hides 60 mg subcut Left upper arm 1 mL [id number] 09/18/26 [id number] [facility] Comments: Pt came by herself. Pt tolerated injection well. No adverse reactions reported from previous injection. Pt did not have any further questions. Assessment & Plan Assessment & Plan Orders: Orders AMB Denosumab Injection Practice Supplied Today M81.0 - Age-related osteoporosis without current pathological fracture Medications: New Prolia (denosumab) 60 mg subcut ONCE 1 mL 0RF NS M81.0 - Age-related osteoporosis without current pathological fracture Coding
== END 2024-07-19 14:07 | disposition home or self-care (01) ==
LOC: HO.ENCR 13:43
PROVIDERS: PCP Internal Medicine; Visit Provider Internal Medicine Endocrinology, Diabetes & Metabolism
DX: M81.0 Age-related osteoporosis without current pathological fracture (principal)

== ENCOUNTER → 2024-07-19 13:43 | Outpatient (BNVA) | payer MEDICARE, SELFPAY | PROVIDERS: PCP Internal Medicine; Visit Provider Internal Medicine Endocrinology, Diabetes & Metabolism | DX: M81.0 Age-related osteoporosis without current pathological fracture (principal) | CPT/HCPCS: 96372; J0897 ==

== ENCOUNTER 2024-10-02 08:41 | Outpatient (AMB) | payer MEDICARE, SELFPAY ==
[2024-10-02 08:45] VITALS: BP 106/58; PULSE 64; TEMP 36.5; O2SAT 95; BMI 26.9
--- NOTE | 2024-10-02 08:45 | MHC.OFFWIV ---
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 - The issue began suddenly without any known inciting event, with the patient waking up with pain and the finger locked in a bent position. - The finger is stuck in a flexed position, with some ability to stretch it slightly, but it remains painful and occasionally locks. - Slight swelling is noted in the affected area, and the patient can feel the finger but experiences it getting stuck. - No prior similar episodes or relevant medical history related to this condition were reported. Physical Exam General: Cooperative, healthy appearing, comfortable, no acute distress and well developed Orientation: Patient oriented x3 Limitations: No limitations Head: Normal to inspection Ears: Hearing grossly normal bilaterally Nose: Normal External nose present Face and sinus: Normal facial exam Mouth: normal, moist oral mucosa Eyes: Appearance normal, both eyes and all related structures Neck: Normal visual inspection and Yes full ROM Respiratory: Normal respiratory effort and able to speak in complete sentences. Skin: no rashes or lesions noted Neuro: Patient oriented x3 Extremities: Moving all extremities normally, full ROM all fingers on right hand, all fingers on right hand NVI. Slight edema right 3rd digit. [facility] Medical History History of colon polyps Osteoporosis History of cholelithiasis Dyslipidemia Essential hypertension Surgical History Hx of colonoscopy History of left breast biopsy History of laparoscopic cholecystectomy Family History Brother Diabetes mellitus Essential hypertension Sister Diabetes mellitus Essential hypertension Breast cancer, Onset Age: 70 Mother Essential hypertension Father Essential hypertension Social History Housing: Other Patient Tobacco Use Status: Never used Tobacco e-Cigarette/Vaping Use: Never Used Patient : No service: No Current occupational status: retired Cognitive needs: No Hearing needs: No Vision needs: Yes Review of Systems Const All systems reviewed & are unremarkable except as noted in HPI and below Physical Exam Vital Signs: Last Vital Signs Temp 97.7 F 10/02/24 08:45 Pulse 64 10/02/24 08:45 BP 106/58 L 10/02/24 08:45 Pulse Ox 95 10/02/24 08:45 Oxygen Delivery Method Room Air 10/02/24 08:45 BMI result Body Mass Index 26.9 Assessment & Plan Assessment & Plan (1) Trigger finger of right hand: Code(s): M65.30 - Trigger finger, unspecified finger Qualifiers: Trigger finger location: middle finger Qualified Code(s): M65.331 - Trigger finger, right middle finger Plan: Patient was informed and verbally consented to the use of an ambient scribe for clinic note documentation during this visit 1. Trigger Finger (Stenosing Flexor Tenosynovitis) - Splinted the affected finger to rest the tendon and prevent locking. Advised to wean off in 5-7 days. Rest it as needed. - NSAIDs such as ibuprofen recommended for pain and inflammation management. - Daily range of motion exercises advised to maintain flexibility. - Follow-up if symptoms do not improve, with potential referral to orthopedics for further management, including possible steroid injection by Orthopedics. Coding Level of Care Code Est Pt Level 3 (84245) Diagnoses Trigger middle finger of right hand M65.331 Trigger finger location: middle finger
--- OUTSIDE RECORDS SUMMARY | 2024-10-02 08:46 | XMS_ITS | Patient Health Record ---
Author Organization [facility] [employer] [facility] Address [address] [address] [place] [address] Care Team Providers Care Apparatus Operator Name Role Phone Ross Gomes MD Primary Care Provider Unavaila ble Reason For Referral No Information Plan Of Treatment No Information
--- OUTSIDE RECORDS SUMMARY | 2024-10-02 08:46 | XMS_ITS ---
Author Name [facility] Organization Unknown Results Test Name/Text Value Interpretation Date Range Source 25-HYDROXYVIT D TOT 30.0 ng/mL Normal 05/07/2023 30 - 80 [facility] THYROID STIMULATING HORMONE 0.98 uIU/mL Normal 05/07/2023 0.35 - 4.94 [facility] GLYCATED HEMOGLOBIN 5.6 % Normal 05/07/2023 4 - 6 [facility] ALKALINE PHOSPHATASE 80.0 U/L Normal 05/07/2023 45 - 129 [facility] SODIUM 144.0 mmol/L Normal 05/07/2023 132 - 146 [facility] CHLORIDE 106.0 mmol/L Normal 05/07/2023 99 - 109 [facility] ALBUMIN/GLOBULIN RATIO 1.5 Normal 05/07/2023 1 - 2. 2 [facility] BUN/CREATININE RATIO 17.5 Normal 05/07/2023 10 - 20 [facility] POTASSIUM, SERUM 4.5 mmol/L Normal 05/07/2023 3.5 - 5.2 [facility] CALCIUM 9.3 mg/dL Normal 05/07/2023 8.4 - 10.5 [facility] CREATININE 0.8 mg/dL Normal 05/07/2023 0.5 - 1.3 [facility] TOTAL PROTEIN 7.8 g/dL Normal 05/07/2023 6.2 - 8.1 [facility] BLOOD UREA NITROGEN 14.0 mg/dL Normal 05/07/2023 9 - 23 [facility] ALT/SGPT 19.0 U/L Normal 05/07/2023 17 - 52 [facility] GLUCOSE 99.0 mg/dL Normal 05/07/2023 65 - 100 [facility] AST/SGOT 22.0 U/L Normal 05/07/2023 0 - 34 [facility] BILIRUBIN,TOTAL 1.1 mg/dL Normal 05/07/2023 0.2 - 1.2 [facility] EST GLOMERULAR FILTRATION RATE > 60 Normal 05/07/2023 [facility] ANION GAP 7.0 Normal 05/07/2023 3 - 11 [facility] ALBUMIN 4.7 g/dL Normal 05/07/2023 3.5 - 5 [facility] CARBON DIOXIDE (CO2) 31.0 mmol/L Normal 05/07/2023 20 - 3 1 [facility] CHOLESTEROL RISK RATIO 4.2 Normal 05/07/2023 2 - 4. 5 [facility] CHOLESTEROL LEVEL 189.0 mg/dL Normal 05/07/2023 - 200 [facility] LDL CALCULATED 109.0 mg/dL Normal 05/07/2023 - 130 [facility] HDL CHOLESTEROL 45.0 mg/dL Below low normal 05/07/2023 - [facility] TRIGLYCERIDES LEVEL 173.0 mg/dL Above high normal 05/07/2023 - 150 [facility] URINE LEUKOCYTE ESTERASE NEGATIVE Normal 05/07/2023 - [facility] NITRITE, URINE NEGATIVE Normal 05/07/2023 - [facility] UROBILINOGEN, URINE 0.2 mg/dL Normal 05/07/2023 0.2 - 1 [facility] APPEARANCE, URINE CLEAR Normal 05/07/2023 [facility] GLUCOSE, URINE (UA) NEGATIVE Normal 05/07/2023 - [facility] SPECIFIC GRAVITY,URINE 1.013 Normal 05/07/2023 1.003 - 1.03 [facility] BLOOD,URINE TRACE Normal 05/07/2023 - [facility] BILIRUBIN, URINE NEGATIVE Normal 05/07/2023 - [facility] PROTEIN, URINE NEGATIVE Normal 05/07/2023 - [facility] KETONE, URINE NEGATIVE Normal 05/07/2023 - [facility] COLOR, URINE YELLOW Normal 05/07/2023 [facility] PH,URINE 7.0 Normal 05/07/2023 5 - 8 [facility] BASO # 0.1 K/mm3 Normal 05/07/2023 0 - 0.2 [facility] LYMPH % 21.3 % Normal 05/07/2023 15 - 42 [facility] NUCLEATED RED BLOOD CELL 0.0 K/mm3 Normal 05/07/2023 0 - 0.012 [facility] MEAN CORPUSCULAR HEMOGLOBIN 29.8 pg Normal 05/07/2023 26.2 - 32.6 [facility] MEAN CORPUSCULAR HGB CONC 33.3 g/dL Normal 05/07/2023 32.1 - 34.5 [facility] RED BLOOD COUNT 4.8 M/mm3 Normal 05/07/2023 3.9 - 5.1 [facility] MONO % 6.3 % Normal 05/07/2023 4 - 11 [facility] IMMATURE GRANULOCYTE 0.02 K/mm3 Normal 05/07/2023 0 - 0.0 5 [facility] IMMATURE GRANULOCYTE 0.3 % Normal 05/07/2023 0 - 0.5 [facility] PLATELET COUNT 218.0 K/mm3 Normal 05/07/2023 130 - 385 [facility] NEUTROPHILS % 70.7 % Normal 05/07/2023 46 - 75 [facility] RED CELL DISTRIBUTION WIDTH 12.2 % Normal 05/07/2023 11.5 - 15.6 [facility] HEMOGLOBIN 14.3 g/dL Normal 05/07/2023 12 - 14.8 [facility] NEUTROPHILS # 4.5 K/mm3 Normal 05/07/2023 1.84 - 7.5 [facility] MONO # 0.4 K/mm3 Normal 05/07/2023 0.1 - 1.1 [facility] HEMATOCRIT 42.9 % Normal 05/07/2023 35.7 - 43.7 [facility] MEAN PLATELET VOLUME 9.4 fL Normal 05/07/2023 9 - 12.8 [facility] EOS # 0.0 K/mm3 Normal 05/07/2023 0 - 0.5 [facility] WHITE BLOOD COUNT 6.3 k/mm3 Normal 05/07/2023 4 - 10 [facility] BASO % 0.8 % Normal 05/07/2023 0 - 2 [facility] EOS % 0.6 % Normal 05/07/2023 0 - 5 [facility] NUCLEATED RED BLOOD CELL 0.0 % Normal 05/07/2023 0 - 0.2 [facility] LYMPH # 1.3 K/mm3 Normal 05/07/2023 0.6 - 4.2 [facility] MEAN CORPUSCULAR VOLUME 89.4 fL Normal 05/07/2023 80 - 98 [facility] 25-HYDROXYVIT D TOT 32.0 ng/mL Normal 04/20/2023 30 - 80 [facility] PHOSPHOROUS LEVEL 3.8 mg/dL Normal 04/20/2023 2.5 - 4.5 [facility] MAGNESIUM LEVEL 2.1 mg/dL Normal 04/20/2023 1.6 - 2.5 [facility] PROCOLLAGEN TYPE 1 40.0 ug/L Normal 05/05/2023 [facility] SODIUM 144.0 mmol/L Normal 04/20/2023 132 - 146 [facility] CARBON DIOXIDE (CO2) 29.0 mmol/L Normal 04/20/2023 20 - 3 1 [facility] CHLORIDE 107.0 mmol/L Normal 04/20/2023 99 - 109 [facility] BLOOD UREA NITROGEN 11.0 mg/dL Normal 04/20/2023 9 - 23 [facility] CALCIUM 9.5 mg/dL Normal 04/20/2023 8.4 - 10.5 [facility] POTASSIUM, SERUM 4.1 mmol/L Normal 04/20/2023 3.5 - 5.2 [facility] EST GLOMERULAR FILTRATION RATE > 60 Normal 04/20/2023 [facility] BUN/CREATININE RATIO 13.8 Normal 04/20/2023 10 - 20 [facility] GLUCOSE 94.0 mg/dL Normal 04/20/2023 65 - 100 [facility] CREATININE 0.8 mg/dL Normal 04/20/2023 0.5 - 1.3 [facility] ANION GAP 8.0 Normal 04/20/2023 3 - 11 [facility] C-TELOPEPTIDE 433.0 pg/mL Normal 05/05/2023 [facility] PHOSPHOROUS LEVEL 4.1 mg/dL Normal 01/12/2023 2.5 - 4.5 [facility] MAGNESIUM LEVEL 2.2 mg/dL Normal 01/12/2023 1.6 - 2.5 [facility] 25-HYDROXYVIT D TOT 32.0 ng/mL Normal 01/12/2023 30 - 80 [facility] PROCOLLAGEN TYPE 1 67.0 ug/L Normal 01/15/2023 [facility] C-TELOPEPTIDE 544.0 pg/mL Normal 01/15/2023 [facility] CHLORIDE 105.0 mmol/L Normal 01/12/2023 99 - 109 [facility] CALCIUM 9.3 mg/dL Normal 01/12/2023 8.4 - 10.5 [facility] BLOOD UREA NITROGEN 14.0 mg/dL Normal 01/12/2023 9 - 23 [facility] CREATININE 0.8 mg/dL Normal 01/12/2023 0.5 - 1.3 [facility] EST GLOMERULAR FILTRATION RATE > 60 Normal 01/12/2023 [facility] POTASSIUM, SERUM 4.0 mmol/L Normal 01/12/2023 3.5 - 5.2 [facility] ANION GAP 12.0 Above high normal 01/12/2023 3 - 11 [facility] BUN/CREATININE RATIO 17.5 Normal 01/12/2023 10 - 20 [facility] SODIUM 141.0 mmol/L Normal 01/12/2023 132 - 146 [facility] GLUCOSE 97.0 mg/dL Normal 01/12/2023 65 - 100 [facility] CARBON DIOXIDE (CO2) 24.0 mmol/L Normal 01/12/2023 20 - 3 1 [facility] URIC ACID 7.8 mg/dL Normal 10/14/2022 3.1 - 9.2 [facility] ERYTHROCYTE SEDIMENTATION RATE 16.0 mm/hr Normal 10/14/2022 0 - 30 [facility] NEUTROPHILS % 73.4 % Normal 10/14/2022 46 - 75 [facility] BASO % 1.0 % Normal 10/14/2022 0 - 2 [facility] MEAN CORPUSCULAR VOLUME 86.7 fL Normal 10/14/2022 80 - 98 [facility] MONO % 7.0 % Normal 10/14/2022 4 - 11 [facility] BASO # 0.1 K/mm3 Normal 10/14/2022 0 - 0.2 [facility] EOS % 1.4 % Normal 10/14/2022 0 - 5 [facility] RED CELL DISTRIBUTION WIDTH 12.6 % Normal 10/14/2022 11.5 - 15.6 [facility] WHITE BLOOD COUNT 7.1 k/mm3 Normal 10/14/2022 4 - 10 [facility] LYMPH % 16.9 % Normal 10/14/2022 15 - 42 [facility] MEAN CORPUSCULAR HEMOGLOBIN 29.2 pg Normal 10/14/2022 26.2 - 32.6 [facility] MONO # 0.5 K/mm3 Normal 10/14/2022 0.1 - 1.1 [facility] PLATELET COUNT 241.0 K/mm3 Normal 10/14/2022 130 - 385 [facility] IMMATURE GRANULOCYTE 0.3 % Normal 10/14/2022 0 - 0.5 [facility] MEAN PLATELET VOLUME 8.9 fL Below low normal 10/14/2022 9 - 12.8 [facility] HEMATOCRIT 40.4 % Normal 10/14/2022 35.7 - 43.7 [facility] IMMATURE GRANULOCYTE 0.02 K/mm3 Normal 10/14/2022 0 - 0.0 5 [facility] RED BLOOD COUNT 4.66 M/mm3 Normal 10/14/2022 3.9 - 5.1 [facility] NEUTROPHILS # 5.2 K/mm3 Normal 10/14/2022 1.84 - 7.5 [facility] LYMPH # 1.2 K/mm3 Normal 10/14/2022 0.6 - 4.2 [facility] MEAN CORPUSCULAR HGB CONC 33.7 g/dL Normal 10/14/2022 32.1 - 34.5 [facility] NUCLEATED RED BLOOD CELL 0.0 K/mm3 Normal 10/14/2022 0 - 0.012 [facility] NUCLEATED RED BLOOD CELL 0.0 % Normal 10/14/2022 0 - 0.2 [facility] HEMOGLOBIN 13.6 g/dL Normal 10/14/2022 12 - 14.8 [facility] EOS # 0.1 K/mm3 Normal 10/14/2022 0 - 0.5 [facility] PROTEIN, URINE NEGATIVE Normal 10/14/2022 - [facility] COLOR, URINE YELLOW Normal 10/14/2022 [facility] UROBILINOGEN, URINE 0.2 mg/dL Normal 10/14/2022 0.2 - 1 [facility] APPEARANCE, URINE CLEAR Normal 10/14/2022 C [facility] URINE LEUKOCYTE ESTERASE TRACE Abnormal 10/14/2022 - [facility] BILIRUBIN, URINE NEGATIVE Normal 10/14/2022 - [facility] PH,URINE 6.0 Normal 10/14/2022 5 - 8 [facility] SPECIFIC GRAVITY,URINE 1.012 Normal 10/14/2022 1.003 - 1.03 [facility] GLUCOSE, URINE (UA) NEGATIVE Normal 10/14/2022 - [facility] KETONE, URINE NEGATIVE Normal 10/14/2022 - [facility] NITRITE, URINE NEGATIVE Normal 10/14/2022 - [facility] BLOOD,URINE SMALL Abnormal 10/14/2022 - [facility] HYALINE CAST, URINE KANDICE 0-2 Normal 10/14/2022 0 - 2 [facility] RBC, URINE KANDICE 0-5 Normal 10/14/2022 0 - 5 [facility] SQUAMOUS EPITHELIAL URINE KANDICE 0-5 Normal 10/14/2022 [facility] BACTERIA, URINE KANDICE NEGATIVE Normal 10/14/2022 - [facility] WBC, URINE KANDICE 0-5 Normal 10/14/2022 [facility] BILIRUBIN,TOTAL 0.6 mg/dL Normal 10/14/2022 0.2 - 1.2 [facility] ANION GAP 7.0 Normal 10/14/2022 3 - 11 [facility] CHLORIDE 106.0 mmol/L Normal 10/14/2022 99 - 109 [facility] BUN/CREATININE RATIO 15.0 Normal 10/14/2022 10 - 20 [facility] BLOOD UREA NITROGEN 15.0 mg/dL Normal 10/14/2022 9 - 23 [facility] ALT/SGPT 22.0 U/L Normal 10/14/2022 17 - 52 [facility] SODIUM 142.0 mmol/L Normal 10/14/2022 132 - 146 [facility] ALBUMIN/GLOBULIN RATIO 1.4 Normal 10/14/2022 1 - 2. 2 [facility] ALBUMIN 4.4 g/dL Normal 10/14/2022 3.5 - 5 [facility] TOTAL PROTEIN 7.5 g/dL Normal 10/14/2022 6.2 - 8.1 [facility] GLUCOSE 102.0 mg/dL Above high normal 10/14/2022 65 - 100 [facility] AST/SGOT 23.0 U/L Normal 10/14/2022 0 - 34 [facility] CALCIUM 9.4 mg/dL Normal 10/14/2022 8.4 - 10.5 [facility] EST GLOMERULAR FILTRATION RATE 55.0 ml/min Normal 10/14/2022 [facility] CARBON DIOXIDE (CO2) 29.0 mmol/L Normal 10/14/2022 20 - 3 1 [facility] POTASSIUM, SERUM 4.8 mmol/L Normal 10/14/2022 3.5 - 5.2 [facility] CREATININE 1.0 mg/dL Normal 10/14/2022 0.5 - 1.3 [facility] ALKALINE PHOSPHATASE 79.0 U/L Normal 10/14/2022 45 - 129 [facility] Encounters Encounter Type Encounter Reason Primary Diagnosis Location Date Ambulatory [facility] 5 Ambulatory [facility] 5 Ambulatory BREAST CANCER SCREENING HIGH RISK PATIENTBREAST C OTH ABN AND INCONCLUSIVE FINDINGS ON DX IMAGING OF BREAST [facility]) 01/21/2024 Ambulatory PROLIA B/B AGE-RELATED OSTEOPOROSIS W/O CURRENT PATHOLOGICAL FRACTURE [facility]) 01/14/2024 Ambulatory Z12.4 ENCOUNTER FOR SCREENING FOR MALIGNANT NEOPLASM OF CERVIX [facility]) 11/24/2023 Ambulatory DENSE BREAST BREAST CANCER SCREENING HIGH RISK PA ENCNTR SCREEN MAMMOGRAM FOR MALIGNANT NEOPLASM OF BREAST [facility]) 08/12/2023 Ambulatory PROLIA B/B [facility]) 07/06/2023 Ambulatory PROLIA B/B [facility]) 07/06/2023 Ambulatory AGE-RELATED OSTEOPOROSIS WITHOUT CURRENT PATHOLOGI AGE-RELATED OSTEOPOROSIS W/O CURRENT PATHOLOGICAL FRACTURE [facility]) 05/13/2023 Ambulatory E55.9,Z00.00,I10 ENCNTR FOR GENE RAL ADULT MEDICAL EXAM W/O ABNORMAL FINDINGS [facility]) 05/12/2023 Ambulatory VITAMIN D DEFICIENCY,UNSPECIFIED ENCNTR FOR GENERAL ADULT MEDICAL EXAM W/O ABNORMAL FINDINGS [facility]) 05/07/2023 Ambulatory E55.9 Z00.00 I10 Z00.00 ENCNTR FOR GENERAL ADULT MEDICAL EXAM W/O ABNORMAL FINDINGS [facility]) 05/07/2023 Ambulatory M81.0,E55.9 AGE-RELATED OSTEOPOROSIS W/O CURRENT PATHOLOGICAL FRACTURE [facility]) 04/20/2023 Ambulatory M81.0,E55.9, AGE-RELATED OSTEOPOROSIS W/O CURRENT PATHOLOGICAL FRACTURE [facility]) 01/12/2023 Ambulatory R92.2 INCONCLUSIVE MAMMOGRAM Z80.3 FAMILY HISTORY UNSPECIFIED BENIGN MAMMARY DYSPLASIA OF LEFT BREAST [facility]) 11/09/2022 Ambulatory M79.89 OTHER SPECIFIED SOFT TISSUE DISORDERS [facility]) 10/14/2022 Ambulatory SWELLING IN RIGHT LEG LOCALIZED SWELLING, MASS AND LUMP, RIGHT LOWER LIMB [facility]) 10/14/2022 Ambulatory L PAROTITIS SIALOADENITIS, UNSPECIFIED [facility]) 10/09/2022 Ambulatory M81.0,E55.9 AGE-RELATED OSTEOPOROSIS W/O CURRENT PATHOLOGICAL FRACTURE [facility]) 10/01/2022 Ambulatory K11.20,Z13.1,Z83.3 ENCOUNTER FOR SCREENING FOR DIABETES MELLITUS [facility]) 09/16/2022 Ambulatory K11.20/Z13.1/Z83.3 [facility]) 09/15/2022 Ambulatory K11.21 ACUTE SIALOADENITIS [facility]) 09/02/2022 Ambulatory DENSE BREAST BREAST CANCER SCREENING HIGH RISK PA ENCNTR SCREEN MAMMOGRAM FOR MALIGNANT NEOPLASM OF BREAST [facility]) 08/10/2022 Ambulatory M81.0, E55.9, AGE-RELATED OSTEOPOROSIS W/O CURRENT PATHOLOGICAL FRACTURE [facility]) 06/30/2022 Ambulatory NON MASS- ENHANCEMENT UNSPECIFIE D LUMP IN THE LEFT BREAST, UNSPECIFIED QUADRANT [facility]) 04/28/2022 Ambulatory M81.0, AGE-RELATED OSTEOPOROSIS W/O CURRENT PATHOLOGICAL FRACTURE [facility]) 04/03/2022 Ambulatory ATYPICAL LOBULAR HYPERPLASIA (ALH) OF LEFT BREAST ENCOUNTER FOR OTH SCREENING FOR MALIGNANT NEOPLASM OF BREAST [facility]) 03/03/2022 Care Team Organization Name Specialty Phone Email Start Date End Da te [facility] 08/15/2024 09/14/2024 [facility] CHRIS AUSTIN Primary Care 08/15/2024 [facility]) EJ FRAGOSO Primary Care 07/08/2023 [facility]) EJ FRAGOSO Primary Care 07/07/2023 [facility]) KNOWN PROVIDER Primary Care 10/22/2022 05/24/19 [facility]) PROVIDER KNOWN Primary Care 04/28/2022 04/28/19 23 [facility]) PHYSICIAN NO Primary Care 04/03/2022 05/23/2024 [facility]) NO PHYSICIAN Primary Care 04/03/2022 04/03/2022 [facility]) FOUZIA PAGAN Primary Care 03/05/2022 5 [facility]) EJ FRAGOSO Primary Care 03/03/2022
== END 2024-10-02 09:37 | disposition home or self-care (01) ==
PROVIDERS: PCP Internal Medicine; Visit Provider Physician Assistant
DX: M65.331 Trigger finger, right middle finger (principal)

== ENCOUNTER → 2024-10-02 08:41 | Outpatient (BNVA) | payer MEDICARE, SELFPAY | PROVIDERS: PCP Internal Medicine; Visit Provider Physician Assistant | DX: M65.331 Trigger finger, right middle finger (principal) | CPT/HCPCS: 99212 ==

== ENCOUNTER 2024-10-06 08:47 | Outpatient (AMB) | payer MEDICARE, SELFPAY ==
--- OUTSIDE RECORDS SUMMARY | 2024-10-06 08:51 | XMS_ITS | Patient Health Record ---
Author Organization [facility] Address [address] [address] [place] [address] Care Team Providers Care Internal Medicine Nurse Name Role Phone Ross Gomes MD Primary Care Provider Unavaila ble Reason For Referral No Information Plan Of Treatment No Information
--- NOTE | 2024-10-06 09:00 | MHC.OFFVIS ---
Vital Signs 10/06/24 09:08 Height 5 ft 2 in Weight 145 lb 15.136 oz BMI 26.7 BP 134/65 Blood Pressure Location Lt brachial Position Sitting Pulse 62 Pulse Oximetry (%) 97 Oxygen Delivery Method Room Air Intake Visit Reasons: colo screening Intake Note: Patient new consult for pre Colonoscopy screening. Patient cc: frequent cough. Denies any other GI issues. 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 female with past medical history of osteoporosis, dyslipidemia, hypertension is here today for pre colonoscopy screening.? Patient was sent to us by her PCP.? Patient had colonoscopy about 5 years ago or so. Sessile polyps found.? Patient denies any gastrointestinal symptoms in the past or at present.? Denies any personal or family history of gastrointestinal disease or CRC.? Denies history of difficulty with sedation or anesthesia in the past.? Negative for history of sleep apnea.? Denies any history of cardiac, renal, pulmonary, or hepatic disease.?? No history of infectious? diseases like hepatitis A, B, C, HIV or tuberculosis.? Patient is not on any anticoagulation PFSH Medical History (Updated 10/02/24 @ 09:12 by Gabby Charles PA-C) History of colon polyps Osteoporosis History of cholelithiasis Dyslipidemia Essential hypertension Surgical History (Updated 10/06/24 @ 09:06 by Holly Chau) Hx of colonoscopy with polypectomy Hx of colonoscopy History of left breast biopsy History of laparoscopic cholecystectomy Family History Brother Diabetes mellitus Essential hypertension Sister Diabetes mellitus Essential hypertension Breast cancer, Onset Age: 70 Mother Essential hypertension Father Essential hypertension Social History Housing: Other Patient Tobacco Use Status: Never used Tobacco e-Cigarette/Vaping Use: Never Used service: No Current occupational status: retired Cognitive needs: No Hearing needs: No Vision needs: Yes Review of Systems Const Denies weight gain and Denies weight loss ENT Reports no additional complaints, Denies dysphagia and Denies odynophagia Card Reports no additional complaints Resp Reports no additional complaints GI Denies abdominal pain, Denies belching, Denies melena, Denies bloating, Denies change in bowel habits, Denies dysphagia, Denies excessive flatus, Denies dyspepsia, Denies heartburn, Denies diarrhea, Denies loose stools, Denies nausea, Denies odynophagia and Denies vomiting Musc Reports no additional complaints Neuro Reports no additional complaints Psych Reports no additional complaints Endo Reports no additional complaints Physical Exam Vital Signs: Last Vital Signs Pulse 62 10/06/24 09:08 BP 134/65 10/06/24 09:08 Pulse Ox 97 10/06/24 09:08 Oxygen Delivery Method Room Air 10/06/24 09:08 BMI result Body Mass Index 26.7 Const General: healthy appearing, no acute distress and well developed Nutritional Appearance: well nourished Orientation/consciousness: patient oriented x3 Resp Effort & Inspection: normal respiratory effort, able to speak in complete sentences, no tracheal deviation and symmetric chest movement Auscultation: clear to auscultation bilaterally Cardio Rate: regular rate GI Inspection: Yes normal to inspection and No distended Palpation (GI): Soft to palpation, not firm, nontender and No hepatosplenomegaly present Auscultation: normal bowel sounds General: Yes no CVA tenderness Back/Spine/Pelvis Back: no CVA tenderness Skin General skin exam: elasticity normal, turgor normal and dry skin Neuro General: patient oriented x3 Psych Appearance: grossly normal Mental Status: mental status grossly normal Assessment & Plan Assessment & Plan (1) History of colon polyps: Code(s): Z86.0100 - Personal history of colon polyps, unspecified Category: Medical (2) Screen for colon cancer: Code(s): Z12.11 - Encounter for screening for malignant neoplasm of colon Plan Patient denies any GI, cardiac or respiratory symptoms.? Denies any issues with anesthesia in the past.? Denies any history of sleep apnea.? No history infectious diseases in the past or present.? Not on any anticoagulation therapy.? No family or personal history of colon cancer or polyps.? Patient denies melena, hematochezia, unintentional weight loss or ribbon like stools.? Discussed at length the pre-procedure,? prep, diet & medications as well as what to expect prior, during and after the procedure.?? Stressed the importance of good bowel prep.? Recommended the use of Vaseline or Calmoseptine OTC & baby wipes with bowel movements to promote comfort.? ?Patient verbalizes understanding and agrees to plan of care.? She was given the opportunity to ask questions and all questions answered.? We will see her after the procedure.? Medications: New bisacodyl (Dulcolax (bisacodyl)) take 4 tabs at noon the day before your colonoscopy 20 mg (4 x 5 mg) PO ONCE 4 tabs 0RF constipation 1 day Z12.11 - Encounter for screening for malignant neoplasm of colon polyethylene glycol 3350 (Miralax) As directed by gastroenterology department at [facility] 238 grams PO ONCE 238 grams 0RF Z12.11 - Encounter for screening for malignant neoplasm of colon Coding Level of Care Code New Pt Level 3 (67411) Diagnoses History of colon polyps Z86.0100 Screen for colon cancer Z12.11 Time Spent (min) 40 Comment 30 minutes spent with patient and additional 10 minutes spent reviewing her records
[2024-10-06 09:08] VITALS: BP 134/65; PULSE 62; O2SAT 97; BMI 26.7
== END 2024-10-06 09:55 | disposition home or self-care (01) ==
LOC: HO.HGI 08:48
PROVIDERS: PCP Internal Medicine; Visit Provider Nurse Practitioner Family
DX: Z86.0100 Personal history of colon polyps, unspecified (principal); Z12.11 Encounter for screening for malignant neoplasm of colon
CPT/HCPCS: 99024

== ENCOUNTER → 2024-10-06 08:47 | Outpatient (BNVA) | payer MEDICARE, SELFPAY | PROVIDERS: PCP Internal Medicine; Visit Provider Nurse Practitioner Family | DX: Z12.11 Encounter for screening for malignant neoplasm of colon (principal); Z86.0100 Personal history of colon polyps, unspecified | CPT/HCPCS: 99212 ==

== ENCOUNTER 2024-10-10 10:17 | Outpatient (AMB) | payer MEDICARE, SELFPAY ==
--- NOTE | 2024-10-10 10:40 | A.OFFPC_ITS ---
Vital Signs 10/10/24 10:44 Height 5 ft 2 in Weight 148 lb BMI 27.1 BP 110/78 Blood Pressure Location Lt brachial Position Sitting Respiration 16 Pulse 60 Pulse Source Pulse Oximeter Temp 98.1 F Temp Source Oral Pulse Oximetry (%) 96 Oxygen Delivery Method Room Air Intake Visit Reasons: dry cough,HTN Intake Note: Pt is here for dry cough and HTN Direct Support Professional Caregiver Required: No Accompanied by: Self / Same As Patient Allergies No Known Allergies Allergy (Verified 10/10/24 11:11) Medication List - Last Reconciled 10/10/24 by Adele Asencio MD ascorbic acid (vitamin C) mg PO DAILY atorvastatin 20 mg PO DAILY bisacodyl (Dulcolax (bisacodyl)) 20 mg (4 x 5 mg) PO ONCE 1 day calcium citrate-vitamin D3 500 mg-12.5 mcg (500 unit) 2 tabs PO DAILY cholecalciferol (vitamin D3) 50 mcg PO DAILY lisinopril-hydrochlorothiazide 20-12.5 mg 1 tab PO DAILY omega 4-ocf-mak-fish oil 1,000 (120-180) mg (Fish Oil) 1 cap PO DAILY polyethylene glycol 3350 (Miralax) 238 grams PO ONCE vitamins A,C,H-kioy-aloxrp 4,296 mcg-226 mg-90 mg (PreserVision AREDS) 1 cap PO BID Tobacco use date assessed: 10/10/24 Fall risk assessment: No Falls in past year Last assessed Fall Risk: 10/10/24 Dental Screening Dental Screen Date: 10/10/24 Did you have a dental visit in the last 12 months?: Yes Did you have a dental problem in the last 6 months where you did not have access to dental care?: No Was dental information given to patient?: Patient has dentist HPI dry cough,HTN HPI Details - The patient is a 73-year-old female pr esenting with management of hypertension and addressing side effects of current medications. - Dry cough: The patient reports experie ncing a dry cough that has been ongoing intermittently. - Leg cramps: The patient experiences le g cramps, which may be associated with atorvastatin use. - Essential hypertension: The patient is currently on lisinopril HCTZ, which is being switched to losartan HCTZ due to a cough likely caused by the AMANDA inhibitor. - Muscle pain: The patient reports muscl e pain, particularly when climbing stairs, which is suspected to be a side effect of atorvastatin. [facility] Medical History (Updated 10/10/24 @ 11:25 by Adele Asencio MD) Hypertriglyceridemia Cough due to AMANDA inhibitor History of colon polyps Osteoporosis History of cholelithiasis Dyslipidemia Essential hypertension Surgical History Hx of colonoscopy with polypectomy Hx of colonoscopy History of left breast biopsy History of laparoscopic cholecystectomy Family History Brother Diabetes mellitus Essential hypertension Sister Diabetes mellitus Essential hypertension Breast cancer, Onset Age: 70 Mother Essential hypertension Father Essential hypertension Social History Housing: Other Patient Tobacco Use Status: Never used Tobacco e-Cigarette/Vaping Use: Never Used service: No Current occupational status: retired Cognitive needs: No Hearing needs: No Vision needs: Yes Questionnaire PHQ-9 Over the last 2 weeks, how often have you been bothered by any of the following problems? 1. Little interest or pleasure in doing things: not at all 2. Feeling down, depressed, or hopeless: not at all 3. Trouble falling or staying asleep, or sleeping too much: not at all 4. Feeling tired or having little energy: not at all 5. Poor appetite or overeating: not at all 6. Feeling bad about yourself - or that you are a failure or have let yourself or your family down: not at all 7. Trouble concentrating on things, such as reading the newspaper or watching television: not at all 8. Moving or speaking so slowly that other people could have noticed. Or the opposite - being so fidgety or restless that you have been moving around a lot more than usual: not at all 9. Thoughts that you would be better off or of hurting yourself in some way: not at all Total score: 0 Depression Screening Interpretation: Negative Depression Screening Done: Yes 15603 - PHQ-9 Billing: Yes Source: Developed by Drs. Orlin Oshea, Gladys Camara, Jose Arita and colleagues, with an educational sally from [employer]. Thrive Questionnaire Date Thrive assessed: 05/22/24 I am a: Patient What is your living situation today?: I have a steady place to live Within the past 12 months, did the food you bought not last and you didn't have the money to get more?: I choose not to answer this question Within the past 12 months, did you worry whether your food would run out before you got money to buy more?: I choose not to answer this question Do you have trouble paying for medicines?: I choose not to answer this question Do you have trouble getting transportation to medical appointments?: I choose not to answer this question Do you have trouble paying your heating and electricity bill?: I choose not to answer this question Do you have trouble taking care of your child, family member or friend?: I choose not to answer this question Do you have trouble with day-to-day activities such as bathing, preparing meals, shopping, managing finances, etc.?: I choose not to answer this question Are you currently unemployed and looking for a job?: I choose not to answer this question Are you interested in more education?: I choose not to answer this question Please select the resources that you would like help with: None Currently or been in a relationship where the following occur: I choose not to answer THRIVE Score: 0 AUDIT C Alcohol Use Questionnaire (AUDIT-C) 3. How often do you have six or more drinks on one occasion?: Never Total Score: 0 ERROL-7 AMB Questionnaire ERROL-7 Date ERROL - 7 assessed: 10/10/24 Feeling nervous, anxious, or on edge: 0 = Not at all Not being able to stop or control worryin = Not at all Worrying too much about different things: 0 = Not at all Trouble relaxin = Not at all Being so restless that it is hard to sit still: 0 = Not at all Becoming easily annoyed or irritable: 0 = Not at all Feeling afraid as if something awful might happen: 0 = Not at all Total ERROL-7 score (0-4 normal; 5-9 mild; 10-14 moderate; 15-21 severe): 0 Source: Developed by Drs. Orlin Oshea, Gladys Camara, Jose Arita and colleagues, with an educational sally from [employer]. ERROL-7 Assessment Billing ERROL-7 Assessment Tool: ERROL-7 Assessment 68488 Review of Systems Const Denies fatigue, Denies headache(s) and Denies weakness ENT Denies dizziness, Denies headache(s) and Denies nasal congestion Card Denies chest pain, Denies lightheadedness, Denies palpitations and Denies dyspnea Resp Denies chest congestion and Denies dyspnea GI Denies abdominal pain, Denies change in bowel habits and Denies heartburn Reports no additional complaints Musc Reports no additional complaints Skin/Breast Denies breast pain, Denies breast mass and Denies rash Neuro Denies dizziness, Denies headache(s) and Denies weakness Psych Reports no additional complaints Endo Denies fatigue, Denies polydipsia, Denies polyuria and Denies palpitations Graham/Lymph Reports no additional complaints Physical exam (Primary Care) Vital Signs: Last Vital Signs Temp 98.1 F 10/10/24 10:44 Pulse 60 10/10/24 10:44 Resp 16 10/10/24 10:44 BP 110/78 10/10/24 10:44 Pulse Ox 96 10/10/24 10:44 Oxygen Delivery Method Room Air 10/10/24 10:44 BMI result Body Mass Index 27.1 Tobacco/Smoking Status: Tobacco use Status Tobacco use date assessed 10/10/24 10/10/24 10:43 Patient Tobacco Use Status Never used Tobacco 10/10/24 10:42 e-Cigarette/Vaping Use Never Used 10/10/24 10:42 PHQ-9: PHQ-9 Score PHQ-9: Total score 0 10/10/24 11:23 Depression Screening Interpretation: Negative Thrive Assessment: Date of Thrive Assessment Date Thrive assessed 05/22/24 10/10/24 10:42 Currently or been in a relationship where the following occur: I choose not to answer Const General: no acute distress and alert Orientation/consciousness: patient oriented x3 HENMT Ears: external ears normal General nose exam: No nasal discharge present Mouth: Normal oral and palatal mucosa present and moist mucous membranes Eyes General: appearance normal, both eyes and all related structures Neck Neck: Yes full ROM, Yes no lymphadenopathy and Yes supple Chest Other: Faint surgical Scar upper quadrant of left breast Breast/axilla palpation: normal palpation of the breasts Resp Effort & Inspection: normal respiratory effort and able to speak in complete sentences Auscultation: clear to auscultation bilaterally Cardio Rate: regular rate Rhythm: regular rhythm Heart sounds: S1 normal heart sound present and S2 normal heart sound present GI Palpation (GI): Soft to palpation, nontender and no masses Auscultation: normal bowel sounds General: Yes no CVA tenderness Back/Spine/Pelvis Back: no CVA tenderness and No back tenderness Skin General skin exam: no rashes or lesions noted Neuro General: patient oriented x3, gait normal, tone normal, moves all extremities, Normal light touch and pain sensation and no focal motor deficits Cranial nerves: Yes CN's II-XII intact bilaterally Cognition (Neuro): normal cognition Extrem General: Yes full ROM, Yes no joint enlargement and Yes no clubbing, cyanosis or edema Psych Appearance: grossly normal and well kempt Mental Status: mental status grossly normal Speech and movement: Normal speech and movement present Affect: normal affect Attitude: cooperative Coding Level of Care Code Est Pt Level 4 (23601) Diagnoses Essential hypertension I10 Cough due to AMANDA inhibitor R05.8; T46.4X5A Hypertriglyceridemia E78.1 Additional Codes ERROL-7 Assessment Billing - ERROL-7 Assessment Tool: ERROL-7 Assessment 49916 ([id number]) PHQ-9 - 36871 - PHQ-9 Billing: Yes ([id number]) Assessment & Plan Assessment & Plan (1) Essential hypertension: Code(s): I10 - Essential (primary) hypertension Category: Medical (2) Cough due to AMANDA inhibitor: Code(s): R05.8 - Other specified cough; T46.4X5A - Adverse effect of lmmnfxjwoln-yfapbibegy-dkchqg inhibitors, initial encounter Category: Medical (3) Hypertriglyceridemia: Code(s): E78.1 - Pure hyperglyceridemia Category: Medical Plan The patient's current medication regimen will be adjusted to address the side effects experienced. Lisinopril HCTZ will be discontinued due to the dry cough, and the patient will be started on losartan HCTZ at a dose of 50-12.5 mg, to be taken in the morning. The patient is advised to monitor for any increase in urination due to the diuretic component of the medication. For the leg cramps and muscle pain, magnesium glycinate supplementation is recommended, starting at 100 mg and increasing to 200 mg if necessary, with caution to avoid diarrhea. Patient was informed and verbally consented to the use of an ambient scribe for clinic note documentation during this visit. Medications: New magnesium glycinate 100 mg PO DAILY 30 tabs 0RF losartan-hydrochlorothiazide 50-12.5 mg 1 tab PO DAILY 30 tabs 5RF I10 - Essential (primary) hypertension, R05.8 - Other specified cough, T46.4X5A - Adverse effect of tehyextqxtf-crurvicytk-hbaqdk inhibitors, initial encounter
[2024-10-10 10:44] VITALS: BP 110/78; PULSE 60; RESP 16; TEMP 36.7; O2SAT 96; BMI 27.1
--- OUTSIDE RECORDS SUMMARY | 2024-10-10 11:24 | XMS_ITS | Patient Health Record ---
Author Organization [facility] [employer] Address [address] [address] [place] [address] Care Team Providers Care Flight Line Mechanic Name Role Phone Ross Gomes MD Primary Care Provider Unavaila ble Reason For Referral No Information Plan Of Treatment No Information
== END 2024-10-10 11:29 | disposition home or self-care (01) ==
LOC: HO.HMCC 10:18
PROVIDERS: PCP Internal Medicine; Visit Provider Internal Medicine
DX: I10 Essential (primary) hypertension (principal); R05.8 Other specified cough; T46.4X5A Adverse effect of angiotensin-converting-enzyme inhibitors, initial encounter; E78.1 Pure hyperglyceridemia

== ENCOUNTER → 2024-10-10 10:17 | Outpatient (BNVA) | payer MEDICARE, SELFPAY | PROVIDERS: PCP Internal Medicine; Visit Provider Internal Medicine | DX: I10 Essential (primary) hypertension (principal); R05.8 Other specified cough; T46.4X5A Adverse effect of angiotensin-converting-enzyme inhibitors, initial encounter; E78.1 Pure hyperglyceridemia | CPT/HCPCS: 96127; 99212 ==

== ENCOUNTER 2024-10-17 09:50 | Outpatient (AMB) | payer MEDICARE, SELFPAY ==
--- OUTSIDE RECORDS SUMMARY | 2024-10-17 10:27 | XMS_ITS | Patient Health Record ---
Author Organization [facility] Address [address] [address] [place] [address] Care Team Providers Care Instrument Sterilizer Name Role Phone Ross Gomes MD Primary Care Provider Unavaila ble Reason For Referral No Information Plan Of Treatment No Information
[2024-10-17 10:37] VITALS: BP 122/74; PULSE 57; TEMP 36.5; O2SAT 97; BMI 26.7
--- NOTE | 2024-10-17 10:37 | MHC.OFFWIV ---
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: No Is last menstrual period known: No Post menopausal: Yes Patient : No Allergies No Known Allergies Allergy (Verified 10/17/24 10:42) Medication List - Last Reconciled 10/17/24 by Gabby Charles PA-C ascorbic acid (vitamin C) mg PO DAILY atorvastatin 20 mg PO DAILY bisacodyl (Dulcolax (bisacodyl)) 20 mg (4 x 5 mg) PO ONCE 1 day calcium citrate-vitamin D3 500 mg-12.5 mcg (500 unit) 2 tabs PO DAILY cholecalciferol (vitamin D3) 50 mcg PO DAILY losartan-hydrochlorothiazide 50-12.5 mg 1 tab PO DAILY magnesium glycinate 100 mg PO DAILY omega 9-zot-rrd-fish oil 1,000 (120-180) mg (Fish Oil) 1 cap PO DAILY polyethylene glycol 3350 (Miralax) 238 grams PO ONCE vitamins A,C,I-zlmq-mmxanm 4,296 mcg-226 mg-90 mg (PreserVision AREDS) 1 cap PO BID HPI HPI Comments History of Present Illness Details History of Present Illness - The patient is a 73-year-old female presenting with a follow-up for trigger finger of the right middle finger. - The condition started about one month ago, with symptoms of the finger locking in a bent position and associated pain. - Initial management included splinting and NSAIDs, but the symptoms persist, indicating a need for further intervention. Physical Exam General: Cooperative, healthy appearing, comfortable, no acute distress and well developed Orientation: Patient oriented x3 Limitations: No limitations Head: Normal to inspection Ears: Hearing grossly normal bilaterally Nose: Normal External nose present Face and sinus: Normal facial exam Eyes: Appearance normal, both eyes and all related structures Neck: Normal visual inspection and Yes full ROM Respiratory: Normal respiratory effort and able to speak in complete sentences. Skin: No rashes or lesions noted Neuro: Patient oriented x3 Extremities: Right 3rd digit locks with flexion [facility] Medical History (Updated 10/10/24 @ 11:25 by Adele Asencio MD) Hypertriglyceridemia Cough due to AMANDA inhibitor History of colon polyps Osteoporosis History of cholelithiasis Dyslipidemia Essential hypertension Surgical History Hx of colonoscopy with polypectomy Hx of colonoscopy History of left breast biopsy History of laparoscopic cholecystectomy Family History Brother Diabetes mellitus Essential hypertension Sister Diabetes mellitus Essential hypertension Breast cancer, Onset Age: 70 Mother Essential hypertension Father Essential hypertension Social History Housing: Other Patient Tobacco Use Status: Never used Tobacco e-Cigarette/Vaping Use: Never Used Patient : No service: No Current occupational status: retired Cognitive needs: No Hearing needs: No Vision needs: Yes Review of Systems Const All systems reviewed & are unremarkable except as noted in HPI and below Physical Exam Vital Signs: Last Vital Signs Temp 97.7 F 10/17/24 10:37 Pulse 57 10/17/24 10:37 BP 122/74 10/17/24 10:37 Pulse Ox 97 10/17/24 10:37 Oxygen Delivery Method Room Air 10/17/24 10:37 BMI result Body Mass Index 26.7 Assessment & Plan Assessment & Plan (1) Trigger finger of right hand: Code(s): M65.30 - Trigger finger, unspecified finger Qualifiers: Trigger finger location: middle finger Qualified Code(s): M65.331 - Trigger finger, right middle finger Plan: Plan - Referral to orthopedics for further evaluation and management by a hand surgeon. - Patient advised to expect a call from the referrals department for scheduling an appointment with Dr. Effie Breen or the hand [facility]. Patient was informed and verbally consented to the use of an ambient scribe for clinic note documentation during this visit. Orders: Referrals Orthopedics Referral M65.331 - Trigger finger, right middle finger Coding Level of Care Code Est Pt Level 3 (11066) Diagnoses Trigger middle finger of right hand M65.331 Trigger finger location: middle finger
== END 2024-10-17 11:08 | disposition home or self-care (01) ==
PROVIDERS: PCP Internal Medicine; Visit Provider Physician Assistant
DX: M65.331 Trigger finger, right middle finger (principal)

== ENCOUNTER → 2024-10-17 09:50 | Outpatient (BNVA) | payer MEDICARE, SELFPAY | PROVIDERS: PCP Internal Medicine; Visit Provider Physician Assistant | DX: M65.331 Trigger finger, right middle finger (principal) | CPT/HCPCS: 99212 ==

== ENCOUNTER → 2024-10-26 12:55 | Outpatient (BNVA) | payer MEDICARE, SELFPAY | PROVIDERS: PCP Internal Medicine | DX: I10 Essential (primary) hypertension (principal); Z71.3 Dietary counseling and surveillance | CPT/HCPCS: 99211 ==

== ENCOUNTER 2024-11-14 10:27 | Outpatient (AMB) | payer MEDICARE, SELFPAY ==
--- OUTSIDE RECORDS SUMMARY | 2024-11-14 11:13 | XMS_ITS | Patient Health Record ---
Author Organization [facility] [place] [employer] [facility] Address [address] [address] [place] [address] Care Team Providers Care Machine Cutter Name Role Phone Ross Gomes MD Primary Care Provider Unavaila ble Reason For Referral No Information Plan Of Treatment No Information
--- NOTE | 2024-11-14 11:38 | A.OFFVIS_ITS ---
Vital Signs 11/14/24 11:44 Height 5 ft 2 in Weight 146 lb BMI 26.7 Intake Visit Reasons: [employer]- Right middle finger trigger Intake Note: right hand dominant female who is retired presents today for a new patient visit for her right middle finger. States her finger is catching and locking daily. States this started about 1 month ago and has not improved. States it has worsen since and now she is afraid to make a fist or lift heavy items since this is what is triggering her finger to lock. Denies numbness or tingling in fingers. NO injury she can recall. Allergies No Known Allergies Allergy (Verified 11/14/24 11:47) HPI HPI [employer]IAN- Right middle finger trigger: Details: Sari is a 73 year old right hand dominant woman who presents with complaints of a right middle trigger finger. She complains of painful locking & catching of the right middle finger, onset ~6 weeks ago. She says she is hesitant to make a tight fist or do any heavy gripping/lifting activities. She found limited relief from splinting her finger and denies any other treatment options. [facility] Medical History (Updated 11/14/24 @ 11:58 by Yoel Leroy) Hypertriglyceridemia Cough due to AMANDA inhibitor History of colon polyps Osteoporosis History of cholelithiasis Dyslipidemia Essential hypertension Surgical History Hx of colonoscopy with polypectomy Hx of colonoscopy History of left breast biopsy History of laparoscopic cholecystectomy Family History Brother Diabetes mellitus Essential hypertension Sister Diabetes mellitus Essential hypertension Breast cancer, Onset Age: 70 Mother Essential hypertension Father Essential hypertension Social History Housing: Other Patient Tobacco Use Status: Never used Tobacco e-Cigarette/Vaping Use: Never Used service: No Current occupational status: retired Cognitive needs: No Hearing needs: No Vision needs: Yes Review of Systems Const All systems reviewed & are unremarkable except as noted in HPI and below Physical Exam Vital Signs: BMI result Body Mass Index 26.7 Const General: cooperative, healthy appearing and no acute distress Orientation/consciousness: patient oriented x3 HEENT Head: Yes normocephalic and Yes atraumatic Eyes EOM: EOMs intact bilaterally Resp Effort & Inspection: normal respiratory effort and able to speak in complete sentences Cardio Jugular venous distension: no JVD Skin General skin exam: turgor normal Rashes: no rashes Neuro General: patient oriented x3 Extrem Other: Evaluation of Right Upper Extremity: The patient is alert, oriented, and in no acute distress Neuro: Median, Ulnar, Radial nerves motor and sensory intact and sensation is normal to the tips of all digits Vascular: Cap refill brisk ROM: She can make a fist and extend all her digits Visible & Palpable locking & catching of the middle finger Tender over the middle finger a1 morenita Skin: No lacerations or abrasions. General: No Ecchymosis. No Erythema or evidence of infection. Psych Appearance: grossly normal Affect: normal affect Attitude: cooperative Assessment & Plan Assessment & Plan (1) Trigger finger of right hand: Comment: Code(s): M65.30 - Trigger finger, unspecified finger Category: Medical Qualifiers: Trigger finger location: middle finger Qualified Code(s): M65.331 - Trigger finger, right middle finger Plan Assessment & Plan: 1. Right middle finger trigger finger I educated her about this condition I discussed operative and non-operative treatment options The patient would like to proceed with an injection The risks and benefits of operative treatment were discussed with the patient and the patient wishes to proceed with surgery. These risks include, but are not limited to risk of damage to blood vessels, nerves, tendons, infection, recurrence, incomplete relief of preoperative symptoms, persistent pain, possible need for further surgery and the risks associated with regional blocks and anesthesia. The plan is to take the patient to the operating room sometime in the next few weeks for the following procedures: 1. Right middle finger trigger release, under local All of the preoperative paperwork including the consent was reviewed today. All the patient's questions were answered. The patient understands that they will be contacted by our materials scheduler soon to schedule this procedure She denies Diabetes, blood thinners, asthma, heart, lung, kidney issues Scribed for Effie Perez MD by Yoel Leroy medical practice manager, on 11/14/24 at 11:45 AM, EST. Coding Level of Care Code New Pt Level 4 (88809) Diagnoses Trigger middle finger of right hand M65.331 Trigger finger location: middle finger
[2024-11-14 11:44] VITALS: BMI 26.7
== END 2024-11-14 12:33 | disposition home or self-care (01) ==
LOC: HO.HOS 10:28
PROVIDERS: PCP Internal Medicine; Visit Provider Orthopaedic Surgery
DX: M65.331 Trigger finger, right middle finger (principal)
CPT/HCPCS: 99204

== ENCOUNTER → 2024-11-14 10:27 | Outpatient (BNVA) | payer MEDICARE, SELFPAY | PROVIDERS: PCP Internal Medicine; Visit Provider Orthopaedic Surgery | DX: M65.331 Trigger finger, right middle finger (principal) | CPT/HCPCS: 99202 ==

== ENCOUNTER 2024-11-27 11:39 | Day surgery (SDC) | payer MEDICARE, SELFPAY ==
--- OUTSIDE RECORDS SUMMARY | 2024-11-10 14:32 | XMS_ITS | Patient Health Record ---
Author Organization [facility] [place] [employer] [facility] Address [address] [address] [place] [address] Care Team Providers Care Car Ferry Master Name Role Phone Ross Gomes MD Primary Care Provider Unavaila ble Reason For Referral No Information Plan Of Treatment No Information
[2024-11-23 14:38] VITALS: BMI 26.7
--- NOTE | 2024-11-24 11:16 | HO.ANESPROP2 ---
Documented by User: Kaila Johns NP 11/24/24 11:17 HPI - Anesthesia Eval Consult details Narrative: 74 yr old female for colonoscopy [facility] Active Problems Active Problems: All Active Problems (Updated 11/23/24 @ 14:36 by Lyssa Rico RN) Trigger finger of right hand (Acute) Decreased strength (Acute) Balance problem (Acute) Hypertriglyceridemia (Acute) Cough due to AMANDA inhibitor (Acute) History of colon polyps (Acute) Osteoporosis (Acute) Dyslipidemia (Acute) Essential hypertension (Acute) Past Medical History Medical History Hypertriglyceridemia Cough due to AMANDA inhibitor History of colon polyps Osteoporosis Dyslipidemia Essential hypertension Family History Family History Brother Diabetes mellitus Essential hypertension Sister Diabetes mellitus Essential hypertension Breast cancer, Onset Age: 70 Mother Essential hypertension Father Essential hypertension Surgical History Surgical History Hx of colonoscopy History of left breast biopsy History of laparoscopic cholecystectomy Social History Social History Housing: Other Are you a primary manager long term care to a significant other at home: No Do you presently have visiting nurse or other home services: No Patient Tobacco Use Status: Never used Tobacco e-Cigarette/Vaping Use: Never Used Have you been hit, kicked, punched, or otherwise hurt by someone within the past year? If so, by whom?: No Are you DNR?: No Advance Directives: No Advance Directives Information Provided: Yes Poor oral hygiene: No service: No Current occupational status: retired Cognitive needs: No Hearing needs: No Vision needs: Yes Meds Allergies Allergy/AdvReac Type Severity Reaction Status Date / Time No Known Allergies Allergy Verified 11/27/24 13:34 Home Medications ?Medication ?Instructions ?Recorded ?Confirmed ?Last Taken ?Type ascorbic acid (vitamin C) 500 mg mg PO DAILY 10/02/24 10/17/24 Unknown History capsule calcium 500 mg (as citrate)-vit D3 2 tab PO DAILY 10/02/24 11/27/24 Unknown History 12.5 mcg (500 unit) chewable tablet cholecalciferol (vitamin D3) 50 50 mcg PO DAILY 10/02/24 11/27/24 Unknown History mcg (2,000 unit) capsule omega 5-usl-bbv-fish oil 1,000 mg 1 cap PO DAILY 10/02/24 11/27/24 11/20/24 History (120 mg-180 mg) capsule (Fish Oil) vitamins A,C,A-nnfs-tlwqsf 4,296 1 cap PO BID 10/02/24 11/27/24 Unknown History mcg-226 mg-90 mg capsule (PreserVision AREDS) Exam Height,Weight and Vital Signs: Height 5 ft 2 in Weight 66.224 kg Documented by User: Luis Armando Hughes MD 11/27/24 14:21 PMF Past Medical History Medical History Hypertriglyceridemia Cough due to AMANDA inhibitor History of colon polyps Osteoporosis Dyslipidemia Essential hypertension Family History Family History Brother Diabetes mellitus Essential hypertension Sister Diabetes mellitus Essential hypertension Breast cancer, Onset Age: 70 Mother Essential hypertension Father Essential hypertension Family history of problems with anesthesia: No Surgical History Surgical History Hx of colonoscopy History of left breast biopsy History of laparoscopic cholecystectomy History of Problems with Anesthesia: No Social History Social History Housing: Other Are you a primary manager long term care to a significant other at home: No Do you presently have visiting nurse or other home services: No Patient Tobacco Use Status: Never used Tobacco e-Cigarette/Vaping Use: Never Used Have you been hit, kicked, punched, or otherwise hurt by someone within the past year? If so, by whom?: No Are you DNR?: No Advance Directives: No Advance Directives Information Provided: Yes Poor oral hygiene: No service: No Current occupational status: retired Cognitive needs: No Hearing needs: No Vision needs: Yes Meds Allergies Allergy/AdvReac Type Severity Reaction Status Date / Time No Known Allergies Allergy Verified 11/27/24 13:34 Home Medications ?Medication ?Instructions ?Recorded ?Confirmed ?Last Taken ?Type ascorbic acid (vitamin C) 500 mg mg PO DAILY 10/02/24 10/17/24 Unknown History capsule calcium 500 mg (as citrate)-vit D3 2 tab PO DAILY 10/02/24 11/27/24 Unknown History 12.5 mcg (500 unit) chewable tablet cholecalciferol (vitamin D3) 50 50 mcg PO DAILY 10/02/24 11/27/24 Unknown History mcg (2,000 unit) capsule omega 8-mis-cvb-fish oil 1,000 mg 1 cap PO DAILY 10/02/24 11/27/24 11/20/24 History (120 mg-180 mg) capsule (Fish Oil) vitamins A,C,E-cfrl-pbafic 4,296 1 cap PO BID 10/02/24 11/27/24 Unknown History mcg-226 mg-90 mg capsule (PreserVision AREDS) Exam Airway Mallampati Class: II TM Dist: >3cm Neck ROM: Full Loose/Missing/Broken Teeth: No Heart: RRR Lungs: CTA Assessment and Plan Assessment Anesthesia Assessment: Anesthesia Plan Discussed and Chart Reviewed Final Anesthetic Review Family History of Problems with Anesthesia: No History of Problems with Anesthesia: No NPO: Yes ASA Class: III Final Preanesthetic Review: Meds/Allgs Chart Reviewed, Consent Obtained/Reviewed and Anes Risks/Benef Reviewed Patient Risk: Low Procedure Risk: Low Anesthetic Plan Anesthetic Plan: MAC: Disposition: Standard PACU
--- NOTE | 2024-11-27 13:41 | MHC.SHP ---
Pre-Procedural Eval Section A - 24 Hr Update-Section A only Date of Service: 11/27/24 The patient is an INPATIENT: No The patient has been examined within 24 hours of the surgical procedure. The History & Physical has been completed within 30 days and I have reviewed it.: No Section B - Complete if H&P > 30 days Chief Complaint: Surveillance for colon polyps Relevant Family History (Specify if Yes): No Relevant Social History: None Present Medications: see Short Stay Collaborative assessment Medical History: Significant History (History of colon polyps Osteoporosis History of cholelithiasis Dyslipidemia Essential hypertension) History of Previous Operations: Relevant previous surgery/procedure and date(s) (Hx of colonoscopy with polypectomy Hx of colonoscopy History of left breast biopsy History of laparoscopic cholecystectomy) Allergies: Allergies Allergy/AdvReac Type Severity Reaction Status Date / Time No Known Allergies Allergy Verified 11/27/24 13:34 Review of Systems Sugical H&P ROS: Negative: Constitution, Cardiovascular, Respiratory and Gastrointestinal Exam Surgical H&P Exam: Normal: Heart, Normal: Lungs, Normal: Extremities and Normal: Abdomen Plan Diagnosis/Plan: Unchanged I have reviewed the history and physical and performed a pertinent physical examination on my patient. No changes have occurred unless specified. Time Spent With Patient Time: Total time managing care of this patient today ____ minutes.
[2024-11-27 13:45] VITALS: BP 136/79; PULSE 54; RESP 18; TEMP 36.7; O2SAT 97
[2024-11-27] MEDS: Lactated Ringers 1,000 ML 100 ML IVCONT (13:45)
--- NOTE | 2024-11-27 15:25 | P.OPN-COLO_ITS ---
Colonoscopy Operative Note Operative Note Date of Service: 11/27/24 Narrative: COLONOSCOPY TILL CECUM WITH BIOPSIES Pre-op diagnosis: Surveillance for colon polyps. Post-op diagnosis:? Colon polyp versus fold, Diverticulosis, hemorrhoids Endoscopist:? Helena Cohn MD Anesthesia:?MAC Consent: Indications for the procedure and potential complications of bleeding, perforation, reaction to medications and missed diagnosis were discussed with the patient and informed consent was obtained. Instrument: Olympus PCF H 190 L variable stiffness pediatric colonoscope Monitoring: Vital signs and clinical assessment, intermittent blood pressure monitoring, continuous EKG monitoring, Pulse oximetry and Carbon Dioxide monitoring were done throughout the procedure. Please see anesthesia flowsheet. Colon withdrawl time was 18 minutes. Procedure: The patient was placed in the left lateral decubitis position and pre-procedure medications were administered. After a digital rectal examination of the ano-rectum, the video colonoscope was inserted into the rectum and advanced through the colon to the cecum. The colonoscope was slowly withdrawn in a retrograde panoramic fashion and the colon mucosa was carefully examined including a retroflexed view of the rectum. Findings and interventions are described below. Procedure Difficulty: Colon was long and tortuous and there was some loop formation. There was narrowing of the sigmoid colon due to severe diverticulosis which was navigated with some difficulty Findings: Terminal Ileum: Not evaluated Cecum: Normal Ascending Colon: Moderate diverticulosis throughout the entire colon Transverse Colon: A 10 - 12 mm polyp versus inverted divertriculum - biopsied. Moderate diverticulosis throughout the entire colon Descending Colon: Moderate diverticulosis throughout the entire colon Sigmoid Colon: Severe diverticulosis with luminal narrowing Rectum: Normal Ano-rectum: Normal Colon preparation: Good after copious irrigation. [place] Bowel Preparation Scale Right colon; 2 Transverse colon: 2 Left colon; 2 (0 = Unprepared colon segment with mucosa not seen due to solid stool that cannot be cleared. 1 = Portion of mucosa of the colon segment seen, but other areas of the colon segment not well seen due to staining, residual stool and/or opaque liquid. 2 = Minor amount of residual staining, small fragments of stool and/or opaque liquid, but mucosa of colon segment seen well. 3 = Entire mucosa of colon segment seen well with no residual staining, small fragments of stool or opaque liquid) Impression and Post Procedure Diagnosis: Colonoscopy Findings: A 10 - 12 mm polyp versus inverted divertriculum - biopsied. Moderate to severe diverticulosis seen in the entire colon Plan: I will send a letter with biopsy results. Repeat Colonoscopy in 6 months if polyp is adenomatous (for polypectomy) and 5 year if polyps are hyperplastic (due to a history of colon polyps). Above findings were reviewed with the patient and relevant handouts were given and the discharge area. BIOPSIES SHOWED: Colon, polyp/fold, biopsy: Colonic mucosa with lymphoid aggregates and minor crypt distortion, otherwise no specific change; no adenomatous dysplasia seen. Letter sent to the patient with biopsy results. Patient was placed on the colonoscopy recall list for repeat colonoscopy in 5 years.
[2024-11-27 15:27] VITALS: BP 105/44; PULSE 53; RESP 20; TEMP 36.3; O2SAT 99
[2024-11-27 15:42] VITALS: BP 143/61; PULSE 51; RESP 16; TEMP 36.8; O2SAT 99
== END 2024-11-27 16:00 | disposition home or self-care (01) ==
PROVIDERS: PCP Internal Medicine; Visit Provider Internal Medicine Gastroenterology
PROC: 0DJD8ZZ Inspection of Lower Intestinal Tract, Via Natural or Artificial Opening Endoscopic (ICD-10-PCS; CPT 45378; principal; 2024-11-27 13:40)
DX: Z12.11 Encounter for screening for malignant neoplasm of colon (principal); Z86.0101 Personal history of adenomatous and serrated colon polyps; K63.5 Polyp of colon; K57.30 Diverticulosis of large intestine without perforation or abscess without bleeding; K64.8 Other hemorrhoids; I10 Essential (primary) hypertension; E78.5 Hyperlipidemia, unspecified; E78.1 Pure hyperglyceridemia; M81.0 Age-related osteoporosis without current pathological fracture; T46.4X5A Adverse effect of angiotensin-converting-enzyme inhibitors, initial encounter; R05.8 Other specified cough; Z90.49 Acquired absence of other specified parts of digestive tract; Z98.890 Other specified postprocedural states
CPT/HCPCS: 45380; 88305; J2003; J2704

== ENCOUNTER → 2024-11-27 11:39 | Outpatient (BNV) | payer MEDICARE, SELFPAY | PROVIDERS: PCP Internal Medicine; Visit Provider Internal Medicine Gastroenterology | DX: Z12.11 Encounter for screening for malignant neoplasm of colon (principal); Z86.0100 Personal history of colon polyps, unspecified; K63.89 Other specified diseases of intestine; K57.90 Diverticulosis of intestine, part unspecified, without perforation or abscess without bleeding | CPT/HCPCS: 45380 ==

== ENCOUNTER 2024-11-29 13:29 | Inpatient (IN) | payer MEDICARE, SELFPAY ==
--- NOTE | ~2024-11-29 | XR_ITS ---
EXAMINATION: XR HIP, RIGHT CLINICAL INFORMATION: trauma COMPARISON: None available. TECHNIQUE: AP and cross lateral view of the right hip. FINDINGS: Foreshortening femoral neck at the junction with the head and neck. No gross malalignment of the femoral head with respect to the acetabulum. Degenerative changes in sacroiliac joints and symphysis pubis. The left hip is intact with normal alignment. XR/XR hip RT w [id number] IMPRESSION: Acute subcapital fracture, right femur. Electronically signed by: Denis Sandhu MD 11/29/2024 02:58 PM EDT
--- NOTE | ~2024-11-29 | XR_ITS ---
CLINICAL HISTORY: chest pain 1 view chest x-ray Comparison: None provided Findings: Mild diffuse reticulonodular pulmonary opacity. Normal size heart. No acute fracture. IMPRESSION: Mild atypical pneumonia. This document has been electronically signed by: Elizabeth Chowdhury MD on 11/29/2024 18:17:53
--- NOTE | ~2024-11-29 | FL_ITS ---
EXAMINATION: XR FLUOROSCOPY WITH IMAGES CLINICAL INFORMATION: ORIF right hip COMPARISON: 11/29/2024. TECHNIQUE: Fluoroscopy provided to: Dr. Carrasquillo Fluoroscopy time: 0.7 minutes DAP: 0.384 Gycm2 Images: 2 FINDINGS: 2 fluoroscopic spot images of the right hip obtained during ORIF of a subcapital right hip fracture. Please refer to the full operative report for details. FL/FL guidance in OR IMPRESSION: Fluoroscopic guidance. Electronically signed by: Siddharth Galvez MD 12/04/2024 12:04 PM EDT RP
[2024-11-29 13:36] VITALS: BP 118/78; PULSE 65; O2SAT 95
[2024-11-29 13:38] VITALS: BP 133/55; PULSE 58; RESP 16; TEMP 36.8; O2SAT 98; BMI 27.9
--- NOTE | 2024-11-29 13:59 | ED_ITS ---
HPI - Fall General Chief Complaint: Fall Stated Complaint: hip pain 10/29 Source: patient Mode of arrival: EMS History of Present Illness HPI Narrative: This is a 74 years old the patient presented to the emergency department after a fall she is complaining of right hip pain she was playing [employer] and tripped and fell. The pain is in the right hip complaint: fall Onset (ago): hour(s) (1) Fall from: standing Loss of consciousness: none Prolonged down time: no Symptoms prior to fall: none Context: tripped/slipped Location of injury: other (hip right) Severity: moderate Quality: dull Related Data Home Medications ?Medication ?Instructions ?Recorded ?Confirmed ascorbic acid (vitamin C) 500 mg mg PO DAILY 10/02/24 10/17/24 capsule calcium 500 mg (as citrate)-vit D3 2 tab PO DAILY 09/1911/27/24 12.5 mcg (500 unit) chewable tablet cholecalciferol (vitamin D3) 50 50 mcg PO DAILY 11/27/24 mcg (2,000 unit) capsule omega 7-nma-dqu-fish oil 1,000 mg 1 cap PO DAILY 10/0211/27/24 (120 mg-180 mg) capsule (Fish Oil) vitamins A,C,R-peev-gqdcqp 4,296 1 cap PO BID 10/02/24 11/27/24 mcg-226 mg-90 mg capsule (PreserVision AREDS) Previous Rx's ?Medication ?Instructions ?Recorded atorvastatin 20 mg tablet 20 mg PO DAILY #90 tabs 07/21 12/14 losartan 50 mg-hydrochlorothiazide 1 tab PO DAILY #30 tabs 10/10/24 12.5 mg tablet magnesium glycinate 100 mg (as 100 mg PO DAILY #30 tab s 10/10/24 glycinate) tablet Allergies Allergy/AdvReac Type Severity Reaction Status Date / Time No Known Allergies Allergy Verified 11/29/24 13:40 Review of Systems 2 Constitutional: Constitutional: Reports no additional constitutional complaints Cardiovascular: Cardiovascular: Reports no additional cardiovascular complaints PMFSH Past Medical History Attestation statement: The following information was validated with the patient. Medical History Hypertriglyceridemia Cough due to AMANDA inhibitor History of colon polyps Osteoporosis Dyslipidemia Essential hypertension Surgical History Hx of colonoscopy History of left breast biopsy History of laparoscopic cholecystectomy Family History Family History Brother Diabetes mellitus Essential hypertension Sister Diabetes mellitus Essential hypertension Breast cancer, Onset Age: 70 Mother Essential hypertension Father Essential hypertension Social History Social History Housing: Other Are you a primary restorative care technician to a significant other at home: No Do you presently have visiting nurse or other home services: No Patient Tobacco Use Status: Never used Tobacco Smoked in Last 30 Days: Yes e-Cigarette/Vaping Use: Never Used Use of substances other than those prescribed or required for medical reasons: No Advance Directives: No Advance Directives Information Provided: Yes Do you have a plan to hurt others: No Plan service: No Current occupational status: retired Cognitive needs: No Hearing needs: No Vision needs: Yes Physical Exam 2 Vital Signs: Vital Signs: Last Vital Signs Temp 98.2 F 11/29/24 13:38 Pulse 64 11/29/24 14:05 Resp 18 11/29/24 14:05 BP 137/61 11/29/24 14:05 Pulse Ox 96 11/29/24 14:05 O2 Del Method Room Air 11/29/24 14:05 BMI result Body Mass Index 27.9 Awake alert oriented x3 no distress HEENT: Head: Yes normal to inspection General nose exam: Normal external nose present Face and sinus: Yes normal facial exam Neck: Neck: Yes normal visual inspection Resp: Effort & Inspection: normal respiratory effort Auscultation: clear to auscultation bilaterally Cardio: Jugular venous distension: no JVD Rate: regular rate Rhythm: r egular rhythm GI: Inspection: Yes normal to inspection Palpation (GI): Soft to palpation Skin: General skin exam: no rashes or lesions noted Extrem: Other: Tenderness in the right hip decreased range of motion Course Reevaluation(s) Reevaluation #1: Case discussed with the ortho Sally Time: 15:05 Medications Administered Discontinued Medications Generic Name Dose Route Start Last Admin Trade Name Freq PRN Reason Stop Dose Admin Fentanyl 25 mcg 11/29/24 14:59 11/29/24 15:05 Fentanyl Citrate/Pf 100 Mcg/2 Ml Vial IVPUSH 11/29/24 15:00 25 mcg ONCE ONE Administration Protocol Medical Decision Making Medical Decision Making [facility] Narrative: Patient is here after a fall complaining of right hip pain we will obtain imaging Differential Diagnosis Differential Diagnoses: The differential diagnosis associated with the presentation includes Hip fracture hip dislocation Admission/Observation Consideration of admission/observation: Escalation of care including admission/observation considered Consult Healthcare Provider Management of the patient was discussed with: Hospitalist spoke with Torie Zavala Lab Data [facility] Lab Attestation statement: I reviewed the patient's lab results. 11/29/24 14:47 11/29/24 14:47 Labs: Lab Results 11/29/24 Range/Units 14:47 WBC 6.0 (4.8-10.8) X10*3/uL RBC 4.35 (4.20-5.50) X10*6/uL Hgb 13.0 (12.0-16.0) g/dl Hct 37.6 (37.0-47.0) % MCV 86.4 (80.0-98.0) fL MCH 29.9 (27.0-33.0) pg MCHC 34.6 (31.0-35.0) g/dl RDW 12.3 (11.0-16.0) % Plt Count 181 (160-400) X10*3/uL MPV 8.5 L (9.4-12.3) fL Immature Gran % (Auto) 0.3 (0.0-0.4) % Neut % (Auto) 77.0 H (45-73) % Lymph % (Auto) 16.2 L (20-40) % [place] % (Auto) 5.0 (2-11) % Eos % (Auto) 0.8 (0-4) % Baso % (Auto) 0.7 (0-2) % Lymph # (Auto) 1.0 L (1.2-4.9) X10*3/uL [place] # (Auto) 0.3 (0.1-1.2) X10*3/uL Eos # (Auto) 0.1 (0.0-0.4) X10*3/uL Baso # (Auto) 0.0 (0.0-0.2) X10*3/uL Abs Immat Gran (auto) 0.02 (0.00-0.03) X10*3/uL Absolute Neuts (auto) 4.6 (2.0-8.3) x10*3/uL Absolute Nucleated RBC 0.000 (0.0-0.012) X10*3/uL Nucleated RBC % (auto) 0.0 (0.0-0.2) /100WBC Sodium 144 (135-145) mmol/L Potassium 5.0 D (3.3-5.1) mmol/L Chloride 108 (96-108) mmol/L Carbon Dioxide 28 (22-29) mmol/L Anion Gap 13 (12-20) BUN 13 (9-16) mg/dL Creatinine 0.66 (0.5-1.4) mg/dL Estim Creat Clear Calc 69.2 Estimated GFR > 60 Random Glucose 102 (60-115) mg/dL Calcium 9.0 D (8.4-10.2) mg/dL Total Bilirubin 0.7 (0.0-1.0) mg/dL AST 31 (5-31) U/L ALT 26 (0-31) U/L Alkaline Phosphatase 53 (39-117) U/L Total Protein 7.2 (6.5-8.0) g/dL Albumin 4.5 (3.5-5.0) g/dL Independent Interpretation I performed an independent interpretation of an: Plain X-Ray Interpretation: I reviewed interpreted the x-ray of the hip has a hip fracture Radiology Impression Discussion of test interpretation with radiology: I have reviewed the radiologist's reading. Radiologist Impression: I reviewed the radiology reading COMPARISON: None available. TECHNIQUE: AP and cross lateral view of the right hip. FINDINGS: Foreshortening femoral neck at the junction with the head and neck. No gross malalignment of the femoral head with respect to the acetabulum. Degenerative changes in sacroiliac joints and symphysis pubis. The left hip is intact with normal alignment. XR/XR hip RT w PEL1V IMPRESSION: Acute subcapital fracture, right femur. Electronically signed by: Denis Sandhu MD 11/29/2024 02:58 PM EDT RP Dictated By: Denis Escalante MD Signed By: <Electronically signed by Denis Landon MD in OV> 11/29/24 0997 Independent Historian Clinical information obtained from an independent historian. History obtained from or confirmed by: Spouse and EMS Prescription Management I considered prescription management with: Pain Medication Chronic Conditions Patient?s care impacted by: Hypertension Discharge Plan Discharge Clinical Impression: Closed hip fracture Qualifiers: Encounter type: initial encounter Laterality: right Qualified Code(s): S72.001A - Fracture of unspecified part of neck of right femur, initial encounter for closed fracture Patient Disposition: Admitted As Inpatient Print Language: [place]
[2024-11-29 14:05] VITALS: BP 137/61; PULSE 60; PULSE 64; RESP 18; O2SAT 96
--- NOTE | 2024-11-29 14:09 | PC.NURSE ---
74 F presents to ED with c/o R hip pain 7/10 from fall when running for the ball in [facility] and slipping. Pt sts she hit head but no LOC, denies any headache or head pain, no vision changes. A+OX4, calm, cooperative. pt does not use any ambulatory device. RR even and unlabored, denies CP or SOB. Pt sts she was running for the ball, slipped and fell on her R hip and banger her head. Neuros intact, PERRLA.
[2024-11-29 14:49] LABS: MANUAL DIFF FLAG NO
[2024-11-29 14:51] LABS: Hematocrit 37.6 % (37.0-47.0); Hemoglobin 13.0 g/dl (12.0-16.0); Imm Gran Abs Auto 0.02 X10*3/uL (0.00-0.03); Imm Gran Pct Auto 0.3 % (0.0-0.4); Lymphocytes Absolute Auto 1.0 X10*3/uL (1.2-4.9); Mean Corpuscular HGB Conc 34.6 g/dl (31.0-35.0); Mean Corpuscular Hemoglobin 29.9 pg (27.0-33.0); Mean Corpuscular Volume 86.4 fL (80.0-98.0); NRBC Abs Auto 0.000 X10*3/uL (0.0-0.012); NRBC Pct Auto 0.0 /100WBC (0.0-0.2); Platelet Count 181 X10*3/uL (160-400); Red Blood Count 4.35 X10*6/uL (4.20-5.50); White Blood Count 6.0 X10*3/uL (4.8-10.8)
--- NOTE | 2024-11-29 15:03 | ECG_ITS ---
Test Reason : FALL Blood Pressure : */* mmHG Vent. Rate : 64 BPM Atrial Rate : 64 BPM P-R Int : 192 ms QRS Dur : 80 ms QT Int : 420 ms P-R-T Axes : 43 22 40 degrees QTcB Int : 433 ms Normal sinus rhythm Normal ECG No previous ECGs available Referred By: Coleman Hawthorne Electronically Signed By: PUSHPA MARTINEZ MD
[2024-11-29 15:11] LABS: Alanine Aminotransferase 26 U/L (0-31); Albumin Level 4.5 g/dL (3.5-5.0); Alkaline Phosphatase 53 U/L (39-117); Anion Gap 13 (12-20); Aspartate Amino Transferase 31 U/L (5-31); Blood Urea Nitrogen 13 mg/dL (9-16); Calcium 9.0 mg/dL (8.4-10.2); Carbon Dioxide 28 mmol/L (22-29); Chloride 108 mmol/L (96-108); Creatinine Clr Calc Pharmacy 69.2; Estimated Glomerular Filt Rate > 60; Potassium 5.0 mmol/L (3.3-5.1); Sodium 144 mmol/L (135-145); Total Protein 7.2 g/dL (6.5-8.0)
[2024-11-29 15:49] VITALS: BP 180/85; PULSE 62; RESP 18; O2SAT 96
--- NOTE | 2024-11-29 15:50 | PC.NURSE ---
Freeman cath placed, clear urine drained in freeman bag. Pt tolerated well.
--- NOTE | 2024-11-29 16:03 | MHC.EDTECH ---
delay on ekg do to ekg machine in use nurse aware
[2024-11-29 16:04] VITALS: RESP 18; O2SAT 99
--- NOTE | 2024-11-29 16:47 | PHA.MEDREC ---
Addendum entered by Arnav Mathew, PharmReinier 11/29/24 17:57: MED REC CHECKED BY [facility] ED Original Note: Pharmacy Consult ? Medication Reconciliation Pharmacy has completed the medication reconciliation. Patient was able to name all of her medications. patient no longer taking Lisinopril-HCTZ 20-125 mg now on Losartan-HCTZ 50-12.5 mg daily. Patient had all her morning medications today.
--- NOTE | 2024-11-29 16:52 | PM.IMHP ---
History of Present Illness Date of Service: 11/29/24 Attending physician on admission: Peter Russo Chief Complaint: Right hip pain Pt is a 74-year-old female with a PMH significant for?HTN and HLD who presents to the ED with?right hip pain after mechanical fall in the community. Pt reports she was at the [facility] center playing ping pong when she was chasing after a ball and lost her balance, hitting her right hip against a window sill and then falling to the floor on her left side. Denies lightheadedness or dizziness. No chest pain or pressure. Denies fever or chills. No nausea, vomiting, abdominal pain. X-ray of hip and pelvis showed acute subcapital fracture of right femur. Other workup unremarkable, including EKG, CBC, and BNP. Vitals stable. Pt will be admitted to the hospital for right hip fracture secondary to mechanical fall in the community. Review of Systems Review of Systems: Negative except for that which is stated in the HPI. [facility] Medical History Hypertriglyceridemia Cough due to AMANDA inhibitor History of colon polyps Osteoporosis Dyslipidemia Essential hypertension Family History Brother Diabetes mellitus Essential hypertension Sister Diabetes mellitus Essential hypertension Breast cancer, Onset Age: 70 Mother Essential hypertension Father Essential hypertension Surgical History Hx of colonoscopy History of left breast biopsy History of laparoscopic cholecystectomy Social History Housing: Other Are you a primary child care supervisor to a significant other at home: No Do you presently have visiting nurse or other home services: No Patient Tobacco Use Status: Never used Tobacco Smoked in Last 30 Days: Yes e-Cigarette/Vaping Use: Never Used Use of substances other than those prescribed or required for medical reasons: No Advance Directives: No Advance Directives Information Provided: Yes Do you have a plan to hurt others: No Plan service: No Current occupational status: retired Cognitive needs: No Hearing needs: No Vision needs: Yes Meds Allergies Allergy/AdvReac Type Severity Reaction Status Date / Time No Known Allergies Allergy Verified 11/29/24 13:40 Active Medications: Current Medications Acetaminophen (Acetaminophen 325 Mg Tablet) 650 mg PO Q6H PRN PRN Reason: Pain, Mild 1-3,fever,headache Ascorbic Acid (Ascorbic Acid 500 Mg Tablet) 500 mg PO DAILY [facility] Atorvastatin Calcium (Atorvastatin Calcium 20 Mg Tablet) 20 mg PO DAILY [facility] Calcium Carbonate (Calcium Carbonate 750 Mg Tab.Chew) 750 mg PO Q4H PRN PRN Reason: Heartburn Magnesium Hydroxide (Milk Of Magnesia 30 Ml Oral.Susp) 30 ml PO DAILY PRN PRN Reason: Constipation Melatonin (Melatonin 3 Mg Tablet) 6 mg PO BEDTIME PRN PRN Reason: Insomnia Morphine Sulfate (Morphine Sulfate 2 Mg/Ml Cartridge) 2 mg IVPUSH Q4H PRN; Protocol PRN Reason: Pain, Severe (Pain Scale 7-10) Non-Formulary Medication (Losartan-Hydrochlorothiazide) 1 tab PO DAILY [facility] Non-Formulary Medication (Magnesium Glycinate) 100 mg PO DAILY [facility] Ondansetron HCl (Ondansetron Hcl 4 Mg/2 Ml Vial) 4 mg IVPUSH Q8H PRN PRN Reason: Nausea and Vomiting Oxycodone HCl (Oxycodone Hcl Immed Release 5 Mg Tablet) 5 mg PO Q4H PRN PRN Reason: Pain, Moderate(Pain Scale 4-6) Sodium Chloride (0.9 % Sodium Chloride Flush 3 Ml Syringe) 3 ml IVFLUSH QSHIFT [facility] Vitamin D (Cholecalciferol (Vitamin D3) 25 Mcg Tablet) 50 mcg PO DAILY [facility] Home Medications ?Medication ?Instructions ?Recorded ?Confirmed ?Last Taken ?Type ascorbic acid (vitamin C) 500 mg 500 mg PO DAILY 10/02/24 11/29/24 11/29/24 History capsule calcium 500 mg (as citrate)-vit D3 2 tab PO DAILY 10/02/24 11/29/24 11/29/24 History 12.5 mcg (500 unit) chewable tablet cholecalciferol (vitamin D3) 50 50 mcg PO DAILY 10/02/24 11/29/24 11/29/24 History mcg (2,000 unit) capsule omega 6-frt-pjh-fish oil 1,000 mg 1 cap PO DAILY 10/02/24 11/29/24 11/29/24 History (120 mg-180 mg) capsule (Fish Oil) vitamins A,C,C-ohet-cjpwvs 4,296 1 cap PO BID 10/02/24 11/29/24 11/29/24 History mcg-226 mg-90 mg capsule (PreserVision AREDS) Physical Exam Vital Signs and Narrative: Vital Signs: Last Vital Signs Temp 98.2 F 11/29/24 13:38 Pulse 62 11/29/24 15:49 Resp 18 11/29/24 16:04 BP 180/85 H 11/29/24 15:49 Pulse Ox 99 11/29/24 16:04 O2 Del Method Room Air 11/29/24 16:04 BMI result Body Mass Index 27.9 General: AOx3, no acute distress Resp: CTA bilaterally CVS: S1, S2, RRR GI: +BS, NT, no distention Skin: Warm, dry Neuro: Cranial nerves II-XII grossly intact bilaterally. Motor grossly intact bilaterally Extremities: No edema. Lower right extremity shortened and externally rotated. Right lower extremity neurovascularly intact. Psych: Appropriate affect Results Labs 11/29/24 14:47 11/29/24 14:47 Labs: Laboratory Results - last 24 hr 11/29/24 14:47 MCV 86.4 MCH 29.9 MCHC 34.6 RDW 12.3 Plt Count 181 MPV 8.5 L Immature Gran % (Auto) 0.3 Neut % (Auto) 77.0 H Lymph % (Auto) 16.2 L [place] % (Auto) 5.0 Eos % (Auto) 0.8 Baso % (Auto) 0.7 Lymph # (Auto) 1.0 L [place] # (Auto) 0.3 Eos # (Auto) 0.1 Baso # (Auto) 0.0 Abs Immat Gran (auto) 0.02 Absolute Neuts (auto) 4.6 Absolute Nucleated RBC 0.000 Nucleated RBC % (auto) 0.0 Anion Gap 13 Estim Creat Clear Calc 69.2 Estimated GFR > 60 Random Glucose 102 Calcium 9.0 D Total Bilirubin 0.7 AST 31 ALT 26 Alkaline Phosphatase 53 Total Protein 7.2 Albumin 4.5 Imaging Radiologist's Impressions: Impressions Hip/Pelvis X-Ray 11/29/24 14:20 IMPRESSION: Acute subcapital fracture, right femur. Electronically signed by: Denis Sandhu MD 11/29/2024 02:58 PM EDT Assessment and Plan (1) Subcapital fracture of right femur: Status: Acute Plan Pt is a 74-year-old female with a PMH significant for?HTN and HLD who presents to the ED with?right hip pain after mechanical fall in the community. Pt will be admitted to the hospital for right hip fracture secondary to mechanical fall in the community. Acute right femur subcapital fracture S/p mechanical fall in the community while playing ping pong Orthopedics consulted, plan on surgical intervention tomorrow Analgesics for pain management NPO after midnight RCRI score 0, pt is at intermediate risk for planned procedure given age and comorbidities PT evaluation HTN Continue losartan and hydrochlorothiazide HTN Continue atorvastatin Full Code Attending:?Dr. Russo DVT Prophylaxis: Pneumatic compression due to impending surgical intervention Pt will require a hospitalization of at least two nights for treatment of?acute closed right femur subcapital fracture requiring surgical intervention. Quality Stroke Does the patient have a stroke diagnosis?: No VTE Prior VTE?: No VTE Risk Level:: Medical - moderate - high VTE Device Contraindication: N/A - Device Ordered VTE Drug Contraindication: Treatment Not Indicated
[2024-11-29 17:02] VITALS: BMI 27.9
--- OUTSIDE RECORDS SUMMARY | 2024-11-29 17:15 | XMS_ITS | Patient Health Record ---
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
[2024-11-29 19:18] VITALS: BP 147/65; PULSE 83; RESP 18; TEMP 36.3; O2SAT 97
[2024-11-29] MEDS: 0.9 % Sodium Chloride Flush 3 ML SYRINGE IVFLUSH (21:09)
[2024-11-30] VITALS (13 sets, daily range): BP systolic 109–142; BP diastolic 55–69; PULSE 61–86; RESP 16–18; TEMP 36.3–36.9; O2SAT 94–100
[2024-11-30 06:26] LABS: Hematocrit 37.6 % (37.0-47.0); Hemoglobin 12.6 g/dl (12.0-16.0); Mean Corpuscular HGB Conc 33.5 g/dl (31.0-35.0); Mean Corpuscular Hemoglobin 29.3 pg (27.0-33.0); Mean Corpuscular Volume 87.4 fL (80.0-98.0); NRBC Abs Auto 0.000 X10*3/uL (0.0-0.012); NRBC Pct Auto 0.0 /100WBC (0.0-0.2); Platelet Count 155 X10*3/uL (160-400); Red Blood Count 4.30 X10*6/uL (4.20-5.50); White Blood Count 9.7 X10*3/uL (4.8-10.8)
[2024-11-30 06:52] LABS: Anion Gap 10 (12-20); Blood Urea Nitrogen 11 mg/dL (9-16); Calcium 8.2 mg/dL (8.4-10.2); Carbon Dioxide 27 mmol/L (22-29); Chloride 102 mmol/L (96-108); Creatinine Clr Calc Pharmacy 69.2; Estimated Glomerular Filt Rate > 60; Potassium 3.3 mmol/L (3.3-5.1); Sodium 136 mmol/L (135-145)
[2024-11-30] MEDS: 0.9 % Sodium Chloride Flush 3 ML SYRINGE IVFLUSH ×2 (08:47→15:37)
[2024-11-30] MEDS: Dextrose 5 % and Lactated Ring 1,000 ML 80 ML IVCONT (09:01)
--- NOTE | 2024-11-30 09:24 | PM.CNOR ---
History of Present Illness HPI Consult date: 11/30/24 Chief complaint: Rigth Hip Fracture Narrative: Patient is a 74-year-old female who is admitted to the hospital after a fall yesterday, 11/29/2024 Patient reports that she was playing ping pong when she experienced a fall onto the right hip X-rays in the emergency department revealed nondisplaced fracture of the femoral neck of the right hip Today, patient is resting comfortably in bed Pain is well managed Patient reports that any range of motion of the right hip is very difficult, but has no pain elsewhere No other acute complaints or concerns at this time [facility] Past Medical History Medical History Hypertriglyceridemia Cough due to AMANDA inhibitor History of colon polyps Osteoporosis Dyslipidemia Essential hypertension Family History Family History Brother Diabetes mellitus Essential hypertension Sister Diabetes mellitus Essential hypertension Breast cancer, Onset Age: 70 Mother Essential hypertension Father Essential hypertension Surgical History Surgical History Hx of colonoscopy History of left breast biopsy History of laparoscopic cholecystectomy Social History Social History Household Members: Children Housing: House Are you a primary home care manager rn to a significant other at home: No Do you presently have visiting nurse or other home services: No Patient Tobacco Use Status: Never used Tobacco Smoked in Last 30 Days: No e-Cigarette/Vaping Use: Never Used Patient Interested in Nicotine Replacement: No Patient Given Instructions on How to Stop Smoking: No Second Hand Smoke Exposure: No Use of substances other than those prescribed or required for medical reasons: No Currently Displaying Signs/Symptoms of Drug Intoxication Withdrawal: No Have you been hit, kicked, punched, or otherwise hurt by someone within the past year? If so, by whom?: No Do you feel safe in your current relationship?: No Current Relationship Is there a partner from a previous relationship who is making you feel unsafe now?: No Are you made to feel afraid or neglected: No Advance Directives: No Advance Directives Information Provided: Yes Do you have a plan to hurt others: No Plan Recently lost weight without trying: No Eating poorly because of decreased appetite: No Nutrition Risks: No Nutritional Risk Patient : No : No Poor oral hygiene: No service: No Current occupational status: retired Cognitive needs: No Hearing needs: No Vision needs: Yes Meds Allergies Allergy/AdvReac Type Severity Reaction Status Date / Time No Known Allergies Allergy Verified 11/29/24 13:40 Active Medications: Current Medications Acetaminophen (Acetaminophen 325 Mg Tablet) 650 mg PO Q6H PRN PRN Reason: Pain, Mild 1-3,fever,headache Last Admin: 11/30/24 08:46 Dose: 650 mg Ascorbic Acid (Ascorbic Acid 500 Mg Tablet) 500 mg PO DAILY [facility] Last Admin: 11/30/24 08:43 Dose: Not Given Atorvastatin Calcium (Atorvastatin Calcium 20 Mg Tablet) 20 mg PO DAILY [facility] Last Admin: 11/30/24 08:42 Dose: Not Given Calcium Carbonate (Calcium Carbonate 750 Mg Tab.Chew) 750 mg PO Q4H PRN PRN Reason: Heartburn Hydrochlorothiazide (Hydrochlorothiazide 12.5 Mg Tablet) 12.5 mg PO DAILY [facility] Last Admin: 11/30/24 08:43 Dose: Not Given Cefazolin Sodium/Dextrose (Ancef) 2 gm in 50 mls @ 100 mls/hr IV PREOP ONE Stop: 11/30/24 14:45 Dextrose/Lactated Ringer's (D5lr) 1,000 mls @ 80 mls/hr IVCONT .[id number] [facility] Stop: 11/30/24 21:14 Last Admin: 11/30/24 09:01 Dose: 80 mls/hr Losartan Potassium (Losartan Potassium 50 Mg Tablet) 50 mg PO DAILY [facility] Last Admin: 11/30/24 08:43 Dose: Not Given Magnesium Hydroxide (Milk Of Magnesia 30 Ml Oral.Susp) 30 ml PO DAILY PRN PRN Reason: Constipation Magnesium Oxide (Magnesium Oxide 400 Mg Tablet) 400 mg PO DAILY [facility] Last Admin: 11/30/24 08:43 Dose: Not Given Melatonin (Melatonin 3 Mg Tablet) 6 mg PO BEDTIME PRN PRN Reason: Insomnia Morphine Sulfate (Morphine Sulfate 2 Mg/Ml Cartridge) 2 mg IVPUSH Q4H PRN; Protocol PRN Reason: Pain, Severe (Pain Scale 7-10) Last Admin: 11/30/24 01:53 Dose: 2 mg Ondansetron HCl (Ondansetron Hcl 4 Mg/2 Ml Vial) 4 mg IVPUSH Q8H PRN PRN Reason: Nausea and Vomiting Oxycodone HCl (Oxycodone Hcl Immed Release 5 Mg Tablet) 5 mg PO Q4H PRN PRN Reason: Pain, Moderate(Pain Scale 4-6) Sodium Chloride (0.9 % Sodium Chloride Flush 3 Ml Syringe) 3 ml IVFLUSH QSHIFT [facility] Last Admin: 11/30/24 08:47 Dose: 3 ml Vitamin D (Cholecalciferol (Vitamin D3) 25 Mcg Tablet) 50 mcg PO DAILY [facility] Last Admin: 11/30/24 08:43 Dose: Not Given Home Medications ?Medication ?Instructions ?Recorded ?Confirmed ?Last Taken ?Type ascorbic acid (vitamin C) 500 mg 500 mg PO DAILY 10/02/24 11/29/24 11/29/24 History capsule calcium 500 mg (as citrate)-vit D3 2 tab PO DAILY 10/02/24 11/29/24 11/29/24 History 12.5 mcg (500 unit) chewable tablet cholecalciferol (vitamin D3) 50 50 mcg PO DAILY 10/02/24 11/29/24 11/29/24 History mcg (2,000 unit) capsule omega 9-fni-wvl-fish oil 1,000 mg 1 cap PO DAILY 10/02/24 11/29/24 11/29/24 History (120 mg-180 mg) capsule (Fish Oil) vitamins A,C,I-abwx-dnzmyr 4,296 1 cap PO BID 10/02/24 11/29/24 11/29/24 History mcg-226 mg-90 mg capsule (PreserVision AREDS) Physical Exam Vital Signs: Vital Signs: Last Vital Signs Temp 97.3 F 11/30/24 07:50 Pulse 64 11/30/24 07:50 Resp 16 11/30/24 07:50 BP 114/55 L 11/30/24 07:50 Pulse Ox 96 11/30/24 07:50 O2 Del Method Room Air 11/30/24 07:50 BMI result Body Mass Index 27.9 Extrem: Other: Patient's right lower extremity normal to inspection No evidence of shortening or external rotation at this time No erythema, ecchymosis, edema noted No lacerations, abrasions, open areas No evidence of infection Patient reports no tenderness to palpation of the right hip Patient is able to be passively flexed at the right hip, but does have pain when doing so Patient is able to flex and extend the digits of the right foot without difficulty Distal sensation intact Capillary refill brisk Results Labs 11/30/24 06:18 11/30/24 06:18 Labs: Abnormal lab results 11/29/24 11/30/24 Range/Units 14:47 06:18 Plt Count 155 L (160-400) X10*3/uL MPV 8.5 L 8.6 L (9.4-12.3) fL Neut % (Auto) 77.0 H (45-73) % Lymph % (Auto) 16.2 L (20-40) % Lymph # (Auto) 1.0 L (1.2-4.9) X10*3/uL Anion Gap 10 L (12-20) Random Glucose 120 H (60-115) mg/dL Calcium 8.2 L D (8.4-10.2) mg/dL H & H 11/29/24 11/30/24 Range/Units 14:47 06:18 Hgb 13.0 12.6 (12.0-16.0) g/dl Hct 37.6 37.6 (37.0-47.0) % All other labs normal. Diagnostic results Hip x-ray: report reviewed and image reviewed Assessment and Plan (1) Subcapital fracture of right femur: Status: Acute Plan 1. Right femoral neck fracture, nondisplaced Date of injury 11/29/2024 Based off of clinical exam findings and imaging the patient does likely have a right femoral neck fracture which would benefit from surgical intervention. The patient does understand nonsurgical intervention would result in 3 screws being placed across the fracture site in order to stabilize the fracture and promote healing. Given the patient's activity level and desire to continue remaining active, it would be recommended to pursue surgical intervention. We discussed the procedure in detail along with the risks, benefits, and alternatives. Risks including but not limited to infection, injury to surrounding nerves, soft tissue structures, and bone, small and large vessels, stiffness, fracture, DVT/PE, and the need for further surgery, along with intraoperative complications including but not limited to . We discussed postoperative recovery which includes difficulties with walking, along with the potential for nonhealing of her fracture resulting in the need for further surgical intervention, namely right hip hemiarthroplasty. The patient expresses understanding of this and would like to proceed with cannulated screw fixation of the right femoral neck. The patient will be booked accordingly. Procedures Date of Service Date of Service: 11/30/24
--- NOTE | 2024-11-30 11:02 | HO.ANESPROP2 ---
HPI - Anesthesia Eval Consult details Narrative: hip fracture PMFSH Active Problems Active Problems: All Active Problems Subcapital fracture of right femur (Acute) Closed hip fracture (Acute) Trigger finger of right hand (Acute) Decreased strength (Acute) Balance problem (Acute) Hypertriglyceridemia (Acute) Cough due to AMANDA inhibitor (Acute) History of colon polyps (Acute) Osteoporosis (Acute) Dyslipidemia (Acute) Essential hypertension (Acute) Past Medical History Medical History Hypertriglyceridemia Cough due to AMANDA inhibitor History of colon polyps Osteoporosis Dyslipidemia Essential hypertension Family History Family History Brother Diabetes mellitus Essential hypertension Sister Diabetes mellitus Essential hypertension Breast cancer, Onset Age: 70 Mother Essential hypertension Father Essential hypertension Family history of problems with anesthesia: No Surgical History Surgical History Hx of colonoscopy History of left breast biopsy History of laparoscopic cholecystectomy History of Problems with Anesthesia: No Social History Social History Household Members: Children Housing: House Are you a primary memory care program director to a significant other at home: No Do you presently have visiting nurse or other home services: No Patient Tobacco Use Status: Never used Tobacco Smoked in Last 30 Days: No e-Cigarette/Vaping Use: Never Used Patient Interested in Nicotine Replacement: No Patient Given Instructions on How to Stop Smoking: No Second Hand Smoke Exposure: No Use of substances other than those prescribed or required for medical reasons: No Currently Displaying Signs/Symptoms of Drug Intoxication Withdrawal: No Have you been hit, kicked, punched, or otherwise hurt by someone within the past year? If so, by whom?: No Do you feel safe in your current relationship?: No Current Relationship Is there a partner from a previous relationship who is making you feel unsafe now?: No Are you made to feel afraid or neglected: No Advance Directives: No Advance Directives Information Provided: Yes Do you have a plan to hurt others: No Plan Recently lost weight without trying: No Eating poorly because of decreased appetite: No Nutrition Risks: No Nutritional Risk Patient : No : No Poor oral hygiene: No service: No Current occupational status: retired Cognitive needs: No Hearing needs: No Vision needs: Yes Meds Allergies Allergy/AdvReac Type Severity Reaction Status Date / Time No Known Allergies Allergy Verified 11/29/24 13:40 Active Medications: Current Medications Acetaminophen (Acetaminophen 325 Mg Tablet) 650 mg PO Q6H PRN PRN Reason: Pain, Mild 1-3,fever,headache Last Admin: 11/30/24 08:46 Dose: 650 mg Ascorbic Acid (Ascorbic Acid 500 Mg Tablet) 500 mg PO DAILY [facility] Last Admin: 11/30/24 08:43 Dose: Not Given Atorvastatin Calcium (Atorvastatin Calcium 20 Mg Tablet) 20 mg PO DAILY [facility] Last Admin: 11/30/24 08:42 Dose: Not Given Calcium Carbonate (Calcium Carbonate 750 Mg Tab.Chew) 750 mg PO Q4H PRN PRN Reason: Heartburn Hydrochlorothiazide (Hydrochlorothiazide 12.5 Mg Tablet) 12.5 mg PO DAILY [facility] Last Admin: 11/30/24 08:43 Dose: Not Given Cefazolin Sodium/Dextrose (Ancef) 2 gm in 50 mls @ 100 mls/hr IV PREOP ONE Stop: 11/30/24 14:45 Dextrose/Lactated Ringer's (D5lr) 1,000 mls @ 80 mls/hr IVCONT .[id number] [facility] Stop: 11/30/24 21:14 Last Admin: 11/30/24 09:01 Dose: 80 mls/hr Losartan Potassium (Losartan Potassium 50 Mg Tablet) 50 mg PO DAILY [facility] Last Admin: 11/30/24 08:43 Dose: Not Given Magnesium Hydroxide (Milk Of Magnesia 30 Ml Oral.Susp) 30 ml PO DAILY PRN PRN Reason: Constipation Magnesium Oxide (Magnesium Oxide 400 Mg Tablet) 400 mg PO DAILY [facility] Last Admin: 11/30/24 08:43 Dose: Not Given Melatonin (Melatonin 3 Mg Tablet) 6 mg PO BEDTIME PRN PRN Reason: Insomnia Morphine Sulfate (Morphine Sulfate 2 Mg/Ml Cartridge) 2 mg IVPUSH Q4H PRN; Protocol PRN Reason: Pain, Severe (Pain Scale 7-10) Last Admin: 11/30/24 01:53 Dose: 2 mg Ondansetron HCl (Ondansetron Hcl 4 Mg/2 Ml Vial) 4 mg IVPUSH Q8H PRN PRN Reason: Nausea and Vomiting Oxycodone HCl (Oxycodone Hcl Immed Release 5 Mg Tablet) 5 mg PO Q4H PRN PRN Reason: Pain, Moderate(Pain Scale 4-6) Sodium Chloride (0.9 % Sodium Chloride Flush 3 Ml Syringe) 3 ml IVFLUSH QSHIFT [facility] Last Admin: 11/30/24 08:47 Dose: 3 ml Vitamin D (Cholecalciferol (Vitamin D3) 25 Mcg Tablet) 50 mcg PO DAILY [facility] Last Admin: 11/30/24 08:43 Dose: Not Given Home Medications ?Medication ?Instructions ?Recorded ?Confirmed ?Last Taken ?Type ascorbic acid (vitamin C) 500 mg 500 mg PO DAILY 10/02/24 11/29/24 11/29/24 History capsule calcium 500 mg (as citrate)-vit D3 2 tab PO DAILY 10/02/24 11/29/24 11/29/24 History 12.5 mcg (500 unit) chewable tablet cholecalciferol (vitamin D3) 50 50 mcg PO DAILY 10/02/24 11/29/24 11/29/24 History mcg (2,000 unit) capsule omega 4-jlk-rmr-fish oil 1,000 mg 1 cap PO DAILY 10/02/24 11/29/24 11/29/24 History (120 mg-180 mg) capsule (Fish Oil) vitamins A,C,Q-qgyi-izkyel 4,296 1 cap PO BID 10/02/24 11/29/24 11/29/24 History mcg-226 mg-90 mg capsule (PreserVision AREDS) Exam Height,Weight and Vital Signs: Height 5 ft 2 in Weight 69.3 kg Last Vital Signs Temp 97.3 F 11/30/24 07:50 Pulse 64 11/30/24 07:50 Resp 16 11/30/24 07:50 BP 114/55 L 11/30/24 07:50 Pulse Ox 96 11/30/24 07:50 O2 Del Method Room Air 11/30/24 07:50 Pertinent Lab Results Pertinent Lab Results: Laboratory Tests 11/29/24 11/30/24 11/30/24 14:47 06:18 08:12 WBC 6.0 9.7 RBC 4.35 4.30 Hgb 13.0 12.6 Hct 37.6 37.6 MCV 86.4 87.4 MCH 29.9 29.3 MCHC 34.6 33.5 RDW 12.3 12.7 Plt Count 181 155 L MPV 8.5 L 8.6 L Immature Gran % (Auto) 0.3 Neut % (Auto) 77.0 H Lymph % (Auto) 16.[address] [place] % (Auto) 5.0 Eos % (Auto) 0.8 Baso % (Auto) 0.7 Lymph # (Auto) 1.[address] [place] # (Auto) 0.3 Eos # (Auto) 0.1 Baso # (Auto) 0.0 Abs Immat Gran (auto) 0.02 Absolute Neuts (auto) 4.6 Absolute Nucleated RBC 0.000 0.000 Nucleated RBC % (auto) 0.0 0.0 Sodium 144 136 Potassium 5.0 D 3.3 D Chloride 108 102 Carbon Dioxide 28 27 Anion Gap 13 10 L BUN 13 11 Creatinine 0.66 0.66 Estim Creat Clear Calc 69.2 69.2 Estimated GFR > 60 > 60 Random Glucose 102 120 H Calcium 9.0 D 8.2 L D Total Bilirubin 0.7 AST 31 ALT 26 Alkaline Phosphatase 53 Total Protein 7.2 Albumin 4.5 Blood Type O Positive Antibody Screen NEGATIVE Airway Mallampati Class: II TM Dist: >3cm Neck ROM: Limited Heart: rrr Lungs: cta Assessment and Plan Assessment Anesthesia Assessment: Anesthesia Plan Discussed and Chart Reviewed Final Anesthetic Review Family History of Problems with Anesthesia: No History of Problems with Anesthesia: No NPO: Yes ASA Class: II Final Preanesthetic Review: No Changes in Pt Med Stat, Meds/Allgs Chart Reviewed, Consent Obtained/Reviewed and Anes Risks/Benef Reviewed Patient Risk: Low Procedure Risk: Intermediate Anesthetic Plan Anesthetic Plan: GA and Agree w/ Assess. and Plan Disposition: Standard PACU
--- NOTE | 2024-11-30 11:52 | MHC.CM.PN ---
PT REPORTS SHE LIVES WITH HER AND DAUGHTER IN HER DAUGHTERS HOME PT IS INDEPENDENT WITH CARE AND MOBILITY AT BASELINE SHE HAS NO DME OR SERVICES COPY OF HCP AT PCP OFFICE PER PT REPORT, CM WILL REQUEST A COPY PCP: CHR[facility] DELIVERED PT WILL LIKELY NEED STR, CM UNABLE TO DISCUSS PT WAS LEAVING UNIT FOR HIP REPAIR, CM WILL RETURN
--- NOTE | 2024-11-30 12:01 | PC.NURSE ---
patient has #20 in left AC, it flushes, + blood return, patent, clean dry intact dressing noted.
--- NOTE | 2024-11-30 14:05 | HO.PM.IMPN ---
Subjective Subjective Date of Service: 11/30/24 Interval History: Pain well controlled if lays still Waiting on surgical pinning later in the afternoon No numbness or tingling in extremities Physical Exam Exam: Exam: General: AOx3, no acute distress Resp: CTA bilaterally CVS: S1, S2, RRR GI: +BS, NT, no distention Skin: Warm, dry Neuro: Cranial nerves II-XII grossly intact bilaterally. Motor grossly intact bilaterally Extremities: No edema. Lower right extremity shortened and externally rotated. Right lower extremity neurovascularly intact. Psych: Appropriate affect Vital Signs: Vital Signs: Last Vital Signs Temp 97.9 F 11/30/24 13:45 Pulse 70 11/30/24 13:59 Resp 16 11/30/24 13:59 BP 128/64 11/30/24 13:59 Pulse Ox 99 11/30/24 13:59 O2 Del Method Simple Mask 11/30/24 13:59 O2 Flow Rate 4 11/30/24 13:59 BMI result Body Mass Index 27.9 Objective Data Active Medications Acetaminophen (Acetaminophen 325 Mg Tablet) 650 mg PO Q6H PRN PRN Reason: Pain, Mild 1-3,fever,headache Last Admin: 11/30/24 08:46 Dose: 650 mg Documented By: DELANEY Ascorbic Acid (Ascorbic Acid 500 Mg Tablet) 500 mg PO DAILY [facility] Last Admin: 11/30/24 08:43 Dose: Not Given Documented By: DELANEY Non-Admin Reason: NPO Atorvastatin Calcium (Atorvastatin Calcium 20 Mg Tablet) 20 mg PO DAILY [facility] Last Admin: 11/30/24 08:42 Dose: Not Given Documented By: DELANEY Non-Admin Reason: NPO Calcium Carbonate (Calcium Carbonate 750 Mg Tab.Chew) 750 mg PO Q4H PRN PRN Reason: Heartburn Fentanyl (Fentanyl Citrate/Pf 100 Mcg/2 Ml Vial) 25 mcg IVPUSH Q5M PRN PRN Reason: Pain, Moderate to Severe (Pain Scale 4-10) Stop: 11/30/24 17:03 Hydrochlorothiazide (Hydrochlorothiazide 12.5 Mg Tablet) 12.5 mg PO DAILY [facility] Last Admin: 11/30/24 08:43 Dose: Not Given Documented By: DELANEY Non-Admin Reason: NPO Cefazolin Sodium/Dextrose (Ancef) 2 gm in 50 mls @ 100 mls/hr IV PREOP ONE Stop: 11/30/24 14:45 Last Admin: 11/30/24 12:50 Dose: 100 mls/hr Documented By: MAHIN Dextrose/Lactated Ringer's (D5lr) 1,000 mls @ 80 mls/hr IVCONT .[id number] [facility] Stop: 11/30/24 21:14 Last Admin: 11/30/24 09:01 Dose: 80 mls/hr Documented By: DELANEY Losartan Potassium (Losartan Potassium 50 Mg Tablet) 50 mg PO DAILY [facility] Last Admin: 11/30/24 08:43 Dose: Not Given Documented By: DELANEY Non-Admin Reason: NPO Magnesium Hydroxide (Milk Of Magnesia 30 Ml Oral.Susp) 30 ml PO DAILY PRN PRN Reason: Constipation Magnesium Oxide (Magnesium Oxide 400 Mg Tablet) 400 mg PO DAILY [facility] Last Admin: 11/30/24 08:43 Dose: Not Given Documented By: DELANEY Non-Admin Reason: NPO Melatonin (Melatonin 3 Mg Tablet) 6 mg PO BEDTIME PRN PRN Reason: Insomnia Morphine Sulfate (Morphine Sulfate 2 Mg/Ml Cartridge) 2 mg IVPUSH Q4H PRN; Protocol PRN Reason: Pain, Severe (Pain Scale 7-10) Last Admin: 11/30/24 01:53 Dose: 2 mg Documented By: RUDY Naloxone HCl (Naloxone Hcl 0.4 Mg/Ml Vial) 0.04 mg IVPUSH Q5M PRN PRN Reason: Excessive sedation or RR < 8 Ondansetron HCl (Ondansetron Hcl 4 Mg/2 Ml Vial) 4 mg IVPUSH Q8H PRN PRN Reason: Nausea and Vomiting Ondansetron HCl (Ondansetron Hcl 4 Mg/2 Ml Vial) 4 mg IVPUSH ONCE PRN PRN Reason: Nausea and Vomiting Stop: 11/30/24 17:03 Oxycodone HCl (Oxycodone Hcl Immed Release 5 Mg Tablet) 5 mg PO Q4H PRN PRN Reason: Pain, Moderate(Pain Scale 4-6) Sodium Chloride (0.9 % Sodium Chloride Flush 3 Ml Syringe) 3 ml IVFLUSH QSHIFT [facility] Last Admin: 11/30/24 08:47 Dose: 3 ml Documented By: DELANEY Vitamin D (Cholecalciferol (Vitamin D3) 25 Mcg Tablet) 50 mcg PO DAILY [facility] Last Admin: 11/30/24 08:43 Dose: Not Given Documented By: DELANEY Non-Admin Reason: NPO Labs 11/30/24 06:18 11/30/24 06:18 Labs: Laboratory Results - last 24 hr 11/29/24 11/30/24 11/30/24 14:47 06:18 08:12 MCV 86.4 87.4 MCH 29.9 29.3 MCHC 34.6 33.5 RDW 12.3 12.7 Plt Count 181 155 L MPV 8.5 L 8.6 L Immature Gran % (Auto) 0.3 Neut % (Auto) 77.0 H Lymph % (Auto) 16.2 L [place] % (Auto) 5.0 Eos % (Auto) 0.8 Baso % (Auto) 0.7 Lymph # (Auto) 1.0 L [place] # (Auto) 0.3 Eos # (Auto) 0.1 Baso # (Auto) 0.0 Abs Immat Gran (auto) 0.02 Absolute Neuts (auto) 4.6 Absolute Nucleated RBC 0.000 0.000 Nucleated RBC % (auto) 0.0 0.0 Anion Gap 13 10 L Estim Creat Clear Calc 69.2 69.2 Estimated GFR > 60 > 60 Random Glucose 102 120 H Calcium 9.0 D 8.2 L D Total Bilirubin 0.7 AST 31 ALT 26 Alkaline Phosphatase 53 Total Protein 7.2 Albumin 4.5 Blood Type O Positive Antibody Screen NEGATIVE Assessment and Plan (1) Subcapital fracture of right femur: Status: Acute Plan Pt is a 74-year-old female with a PMH significant for?HTN and HLD who presents to the ED with?right hip pain after mechanical fall in the community. Pt will be admitted to the hospital for right hip fracture secondary to mechanical fall in the community. Acute right femur subcapital fracture S/p mechanical fall in the community while playing ping pong Orthopedics consulted, plan on surgical intervention with pinning later today Analgesics for pain management Continue NPO for now RCRI score 0, pt is at intermediate risk for planned procedure given age and comorbidities PT evaluation HTN Continue losartan and hydrochlorothiazide HTN Continue atorvastatin Full Code Attending:?Dr. Russo DVT Prophylaxis: Pneumatic compression due to impending surgical intervention Pt requires continued hospitalization for right femur fracture requiring surgical intervention. Quality Stroke Does the patient have a stroke diagnosis?: No VTE Prior VTE?: No VTE Risk Level:: Medical - moderate - high VTE Device Contraindication: N/A - Device Ordered VTE Drug Contraindication: Treatment Not Indicated
--- NOTE | 2024-11-30 16:27 | PM.OP ---
Brief Operative Note Date of Service: 11/30/24 Pre-op diagnosis: right femoral neck fracture Post-op diagnosis: same Procedure: Pecutaneous pinning right thip Implants: [place] 6.5 percutaneous pinning Surgeon: Luke Carrasquillo MD Anesthesia: GETA and regional Was an Hydraulic Strainer Operator used for this Procedure?: No Estimated blood loss (mL): 20 IV fluids (mL): 500 Pathology: none sent Condition: stable Disposition: PACU
[2024-11-30] MEDS: oxyCODONE HCl Immed Release 5 MG TABLET PO (17:58)
[2024-12-01 03:35] VITALS: BP 121/58; PULSE 68; RESP 18; TEMP 36.2; O2SAT 97
[2024-12-01] MEDS: oxyCODONE HCl Immed Release 5 MG TABLET PO ×2 (06:29→19:45)
[2024-12-01 06:32] LABS: Hematocrit 36.7 % (37.0-47.0); Hemoglobin 12.2 g/dl (12.0-16.0); Mean Corpuscular HGB Conc 33.2 g/dl (31.0-35.0); Mean Corpuscular Hemoglobin 29.0 pg (27.0-33.0); Mean Corpuscular Volume 87.4 fL (80.0-98.0); NRBC Abs Auto 0.000 X10*3/uL (0.0-0.012); NRBC Pct Auto 0.0 /100WBC (0.0-0.2); Platelet Count 164 X10*3/uL (160-400); Red Blood Count 4.20 X10*6/uL (4.20-5.50); White Blood Count 8.9 X10*3/uL (4.8-10.8)
[2024-12-01 06:49] LABS: Anion Gap 12 (12-20); Blood Urea Nitrogen 10 mg/dL (9-16); Calcium 8.3 mg/dL (8.4-10.2); Carbon Dioxide 27 mmol/L (22-29); Chloride 108 mmol/L (96-108); Creatinine Clr Calc Pharmacy 70.3; Estimated Glomerular Filt Rate > 60; Potassium 3.6 mmol/L (3.3-5.1); Sodium 143 mmol/L (135-145)
--- NOTE | 2024-12-01 07:12 | HO.PM.IMPN ---
Subjective Subjective Date of Service: 12/01/24 Interval History: Underwent cannulated screw fixation of right femoral neck yesterday Overall feeling well Pain well-controlled Has not yet been OOB Tolerating diet No SOB Review of Systems Review of Systems: Yes all other systems are reviewed and are negative Physical Exam Exam: Exam: General: AOx3, no acute distress Resp: CTA bilaterally CVS: S1, S2, RRR GI: +BS, NT, no distention Skin: Warm, dry Neuro: Cranial nerves II-XII grossly intact bilaterally. Motor grossly intact bilaterally Extremities: No edema. Right hip with appropriate tenderness at surgical site. Incision site covered in clean and dry dressing. Psych: Appropriate affect Vital Signs: Vital Signs: Last Vital Signs Temp 97.2 F 12/01/24 03:35 Pulse 68 12/01/24 03:35 Resp 18 12/01/24 03:35 BP 121/58 L 12/01/24 03:35 Pulse Ox 97 12/01/24 03:35 O2 Del Method Room Air 12/01/24 03:35 O2 Flow Rate 2 11/30/24 14:27 BMI result Body Mass Index 27.9 Objective Data Active Medications Acetaminophen (Acetaminophen 325 Mg Tablet) 650 mg PO Q6H PRN PRN Reason: Pain, Mild 1-3,fever,headache Last Admin: 11/30/24 08:46 Dose: 650 mg Documented By: DELANEY Ascorbic Acid (Ascorbic Acid 500 Mg Tablet) 500 mg PO DAILY [facility], [facility] Last Admin: 11/30/24 08:43 Dose: Not Given Documented By: DELANEY Non-Admin Reason: NPO Aspirin (Aspirin 325 Mg Tablet) 325 mg PO BID [facility], [facility] Atorvastatin Calcium (Atorvastatin Calcium 20 Mg Tablet) 20 mg PO DAILY [facility] Last Admin: 11/30/24 08:42 Dose: Not Given Documented By: DELANEY Non-Admin Reason: NPO Calcium Carbonate (Calcium Carbonate 750 Mg Tab.Chew) 750 mg PO Q4H PRN PRN Reason: Heartburn Hydrochlorothiazide (Hydrochlorothiazide 12.5 Mg Tablet) 12.5 mg PO DAILY [facility] Last Admin: 11/30/24 08:43 Dose: Not Given Documented By: DELANEY Non-Admin Reason: NPO Losartan Potassium (Losartan Potassium 50 Mg Tablet) 50 mg PO DAILY [facility] Last Admin: 11/30/24 08:43 Dose: Not Given Documented By: DELANEY Non-Admin Reason: NPO Magnesium Hydroxide (Milk Of Magnesia 30 Ml Oral.Susp) 30 ml PO DAILY PRN PRN Reason: Constipation Magnesium Oxide (Magnesium Oxide 400 Mg Tablet) 400 mg PO DAILY [facility], [facility] Last Admin: 11/30/24 08:43 Dose: Not Given Documented By: DELANEY Non-Admin Reason: NPO Melatonin (Melatonin 3 Mg Tablet) 6 mg PO BEDTIME PRN PRN Reason: Insomnia Morphine Sulfate (Morphine Sulfate 2 Mg/Ml Cartridge) 2 mg IVPUSH Q4H PRN; Protocol PRN Reason: Pain, Severe (Pain Scale 7-10) Last Admin: 11/30/24 21:38 Dose: 2 mg Documented By: RUDY Ondansetron HCl (Ondansetron Hcl 4 Mg/2 Ml Vial) 4 mg IVPUSH Q8H PRN PRN Reason: Nausea and Vomiting Oxycodone HCl (Oxycodone Hcl Immed Release 5 Mg Tablet) 5 mg PO Q4H PRN PRN Reason: Pain, Moderate(Pain Scale 4-6) Last Admin: 12/01/24 06:29 Dose: 5 mg Documented By: RUDY Sodium Chloride (0.9 % Sodium Chloride Flush 3 Ml Syringe) 3 ml IVFLUSH QSHIFT [facility], [facility] Last Admin: 11/30/24 20:14 Dose: Not Given Documented By: RUDY Non-Admin Reason: IV Running Vitamin D (Cholecalciferol (Vitamin D3) 25 Mcg Tablet) 50 mcg PO DAILY [facility], [facility] Last Admin: 11/30/24 08:43 Dose: Not Given Documented By: DELANEY Non-Admin Reason: NPO Labs 12/01/24 05:48 12/01/24 05:48 Labs: Laboratory Results - last 24 hr 11/30/24 12/01/24 08:12 05:48 MCV 87.4 MCH 29.0 MCHC 33.2 RDW 12.4 Plt Count 164 MPV 9.1 L Absolute Nucleated RBC 0.000 Nucleated RBC % (auto) 0.0 Anion Gap 12 Estim Creat Clear Calc 70.3 Estimated GFR > 60 Random Glucose 96 Calcium 8.3 L Blood Type O Positive Antibody Screen NEGATIVE Assessment and Plan (1) Subcapital fracture of right femur: Status: Acute Plan Pt is a 74-year-old female with a PMH significant for?HTN and HLD who presents to the ED with?right hip pain after mechanical fall in the community. Pt will be admitted to the hospital for right hip fracture secondary to mechanical fall in the community. Acute right femur subcapital fracture S/p mechanical fall in the community while playing ping pong Underwent cannulated screw fixation on 11/30 Analgesics for pain management Orthopeidics following ASA 325 bid for DVT prophylaxis PT evaluation HTN Continue losartan and hydrochlorothiazide HTN Continue atorvastatin Full Code DVT Prophylaxis: Aspirin Pt requires continued hospitalization for PT eval and safe disposition Quality Stroke Does the patient have a stroke diagnosis?: No VTE Prior VTE?: No VTE Risk Level:: Medical - moderate - high VTE Device Contraindication: N/A - Device Ordered VTE Drug Contraindication: Treatment Not Indicated
[2024-12-01 07:52] VITALS: BP 129/64; PULSE 68; RESP 16; TEMP 36; O2SAT 92
[2024-12-01] MEDS: 0.9 % Sodium Chloride Flush 3 ML SYRINGE IVFLUSH ×3 (08:42→19:46)
--- NOTE | 2024-12-01 09:33 | PM.PNORT ---
Subjective Subjective Date of Service: 12/01/24 Interval history: POD1 s/p right hip CRPP Patient is resting in bed comfortably No overnight events Pain is managed No additional complaints Physical Exam Vital Signs: Vital Signs: Last Vital Signs Temp 96.8 F 12/01/24 07:52 Pulse 68 12/01/24 07:52 Resp 16 12/01/24 07:52 BP 129/64 12/01/24 07:52 Pulse Ox 92 12/01/24 07:52 O2 Del Method Room Air 12/01/24 07:52 O2 Flow Rate 2 11/30/24 14:27 BMI result Body Mass Index 27.9 Const: General: cooperative, healthy appearing and no acute distress Resp: Effort & Inspection: normal respiratory effort and able to speak in complete sentences Extrem: Other: Right hip incision site is clean dry and intact. No surrounding erythema or drainage. No signs of infection. Able to dorsiflex and plantar flex. Sensation intact. Pedal pulse intact. Psych: Appearance: grossly normal Mental Status: mental status grossly normal Attitude: cooperative Procedures Date of Service Date of Service: 12/01/24 Progress Note: A&P Assessment and plan (1) Subcapital fracture of right femur: Status: Acute Plan Continue pain mgmnt Begin ASA for dvt ppx begin PT/OT for right hip CRPP - WBAT Dispo planning-Pending PT eval, pain mgmnt, medical clearance for discharge Time Spent With Patient Time: Total time managing care of this patient today ____ minutes. Quality Stroke Does the patient have a stroke diagnosis?: No VTE Prior VTE?: No VTE Risk Level:: Medical - moderate - high VTE Device Contraindication: N/A - Device Ordered VTE Drug Contraindication: Treatment Not Indicated
--- NOTE | 2024-12-01 11:07 | MHC.CM.PN ---
Addendum entered by Sherice Baugh 12/01/24 15:49: PT IS BOOKED FOR BLS TRANSPORT WITH [facility] FOR Wednesday12/02/24 @ 1200 HOURS [facility] THE NUMBER FOR RN REPORT IS [phone], THE SNF RN IS ALISHA. Addendum entered by Sherice Baugh 12/01/24 13:26: PT HAS ACCEPTED A BED AT [facility] CM WILL PRE-BOOK ONCE DC DATE CONFIRMED Addendum entered by Sherice Baugh 12/01/24 12:48: CM MET WITH PT AND DAUGHTER AT BEDSIDE PER DISCUSSION/STATED PREFERENCES, REFERRALS WERE MADE TO [facility] AND [facility] CLINICALLY ACCEPTED, [facility] IS STILL REVIEWING PT IS EXPECTED TO BE MEDICALLY CLEARED OVER THE WEEKEND Original Note: PT NOT YET MEDICALLY CLEARED PT EVAL PENDING, OT EVAL RECOMMENDING STR CM WILL MEET WITH PT AND FAMILY TO DISCUSS PREFERENCES
[2024-12-01] MEDS: Milk of Magnesia 30 ML ORAL.SUSP PO (15:12)
[2024-12-01 15:31] VITALS: BP 123/62; PULSE 76; RESP 16; TEMP 36.4; O2SAT 92
[2024-12-01 19:11] VITALS: BP 131/68; PULSE 82; RESP 18; TEMP 36.7; O2SAT 93
[2024-12-02 03:42] VITALS: BP 116/66; PULSE 76; RESP 17; TEMP 36.3; O2SAT 92
[2024-12-02 07:21] VITALS: BP 118/56; PULSE 67; RESP 16; TEMP 36.7; O2SAT 92
[2024-12-02] MEDS: 0.9 % Sodium Chloride Flush 3 ML SYRINGE IVFLUSH (08:44)
--- NOTE | 2024-12-02 09:21 | PM.DS ---
DS: Providers Provider Date of Service: 12/02/24 Date of admission: 11/29/24 15:15 Date of discharge: 12/02/24 Primary care physician: Adele Asencio MD Consults: 11/29/24 16:45 Consult to Orthopedics Routine Consulting Provider: [facility] Orthopedic Surgeons Reason for consultation: Right hip fracture DS: Diagnosis Discharge Diagnosis (1) Subcapital fracture of right femur: Status: Acute DS: Summary Hospital Course Hospital Course: From admission HPI: Date of Service: 11/29/24 Attending physician on admission: Peter Russo Chief Complaint: Right hip pain Pt is a 74-year-old female with a PMH significant for?HTN and HLD who presents to the ED with?right hip pain after mechanical fall in the community. Pt reports she was at the [employer] playing ping pong when she was chasing after a ball and lost her balance, hitting her right hip against a window sill and then falling to the floor on her left side. Denies lightheadedness or dizziness. No chest pain or pressure. Denies fever or chills. No nausea, vomiting, abdominal pain. X-ray of hip and pelvis showed acute subcapital fracture of right femur. Other workup unremarkable, including EKG, CBC, and BNP. Vitals stable. Pt will be admitted to the hospital for right hip fracture secondary to mechanical fall in the community. Hospital course: Pt was admitted to the hospital for acute right femur subcapital fracture and underwent closed reduction and percutaneous pinning of right hip on 11/30 by orthopedics. Procedure was uneventful as was patient's hospital stay. Pain was well-controlled with IV and oral analgesics. Pt was seen and evaluated by Physical therapy who recommended discharge to short-term rehab for strength and conditioning. Expected length of stay less than 30 days. Pt will be discharged on a short course of opioids as well as aspirin 325 mg daily x6 weeks for DVT prophylaxis. Weightbearing as tolerated. Follow up with Orthopedics in 2 weeks. Pt should resume other home medications. Time Attestation Discharge Coordination Time (in mins): 39 Quality: Safe Use of Opioids Does Pt have an Active Cancer Diagnosis on the Problem List?: No Quality: Stroke Does the patient have a stroke diagnosis?: No Physical Exam Exam: Exam: General: AOx3, no acute distress Resp: CTA bilaterally CVS: S1, S2, RRR GI: +BS, NT, no distention Skin: Warm, dry Neuro: Cranial nerves II-XII grossly intact bilaterally. Motor grossly intact bilaterally. Wiggles toes bilaterally. Sensation to light touch intact bilaterally. Extremities: No edema. Right hip with appropriate tenderness at surgical site. Surgical site covered in clean and dry dressing. Psych: Appropriate affect Vital Signs: Vital Signs: Last Vital Signs Temp 98.1 F 12/02/24 07:21 Pulse 67 12/02/24 07:21 Resp 16 12/02/24 07:21 BP 118/56 L 12/02/24 07:21 Pulse Ox 92 12/02/24 07:21 O2 Del Method Room Air 12/02/24 03:42 O2 Flow Rate 2 11/30/24 14:27 BMI result Body Mass Index 27.9 Discharge Plan Discharge Anticipated Discharge Date/Time: 12/02/24 09:06 Patient Disposition: Xfer SNF Discharge Diagnosis: Acute right femur subcapital fracture Referrals: Myles Sanchez [Outside] Referral Note: [facility] [address] Floyd Bryant PA-C [Physician Scrap Breaker, Orthopedics] - 12/15/24 9:00 am Referral Note: 12/15/24 at 9am with Floyd Discharge Medications: New oxycodone 5 mg tablet 5 mg PO Q6H PRN (Reason: pain, severe) Qty: 20 0RF Rx Instructions: Partial Fill upon patient request. Take one pill up to four times a day for severe pain aspirin 325 mg tablet 325 mg PO DAILY 42 Days Qty: 42 0RF Rx Instructions: Take one tablet daily for the next six weeks. Continued atorvastatin 20 mg tablet 20 mg PO DAILY Qty: 90 1RF losartan-hydrochlorothiazide 50-12.5 mg tablet 1 tab PO DAILY Qty: 30 5RF magnesium glycinate 100 mg tablet 100 mg PO DAILY Qty: 30 0RF PreserVision AREDS 4,296 mcg-226 mg-90 mg capsule 1 cap PO BID cholecalciferol (vitamin D3) 50 mcg (2,000 unit) capsule 50 mcg PO DAILY omega 4-kau-mlp-fish oil [Fish Oil] 1,000 (120-180) mg capsule 1 cap PO DAILY ascorbic acid (vitamin C) 500 mg capsule 500 mg PO DAILY calcium citrate-vitamin D3 500 mg-12.5 mcg (500 unit) tablet,chewable 2 tab PO DAILY Discharge Orders: Discharge Order (Routine); Ordered 12/02/24 Ordered By: Trev Lew Diet: Advance to usual diet Activity on Discharge: Use cane or walker Stand Alone Forms: Patient Portal Discharge page Print Language: Greenlandic Activity Restrictions/Additional Instructions: Physical Therapy for right hip IM Nail: Gait training, ROM, strengthening, ADL's Limit stair climbing No showering, no tub bath-keep dressing clean, dry and intact No driving x 6 weeks Continue Aspirin tabs once a day x 6 weeks Follow up with [facility] Orthopedics in 2 weeks -Bandage/Incision Site Care: -Ice 20mins at a time -Make sure you use a towel or cloth on your skin as a barrier -Keep Bandages clean, dry and intact -Do not get the bandage wet: -No tub bath, pools or hot tubs -Physical Therapy: -Patient is WBAT with the use of a walker -Gait training -Limit stair climbing -Hip range of motion -Strengthening: Quadriceps and hip muscles -Walking: Gait training and gradually increasing distance with walker -Ankle pumps and incentive spirometry to limit the risk of blood clot -Diet: -Resume regular diet as tolerated. -Drink plenty of fluids and eat a high-fiber foods to avoid constipation -This is a common side effect of pain medication) -Take stool softeners as prescribed -Blood Clot Prevention: -Take the prescribed blood thinner Aspirin as directed for 6 weeks -Perform ankle pumps and walk frequently with the walker and assistance if needed -Report calf pain, swelling, or shortness of breath immediately Care Plan Goals: See above and below Health Concerns: Right hip fracture Plan of Treatment: You were admitted to the hospital for right hip fracture suffered during mechanical fall in the community while playing ping-pong. You underwent surgical intervention by Orthopedics with a closed reduction and percutaneous pinning of your right hip. Surgery was unremarkable as was your stay in the hospital. You were seen and evaluated by Physical therapy who recommended discharge to short-term rehab for strength and conditioning. You will be discharged on a short course of opioids for pain management as well as aspirin 325mg daily x6 weeks for DVT prophylaxis. You should resume all of your other home medications. See above for more details concerning treatment and follow up for your hip fracture. Assessment: See discharge summary
[2024-12-02 11:29] VITALS: BP 106/60; PULSE 67; RESP 16; TEMP 36.6; O2SAT 92
--- NOTE | 2024-12-08 14:01 | W.PM.OPN ---
Operative Note Operative Note Date of Service: 11/30/24 Narrative: Date of Service: 11/30/24 Pre-op diagnosis: right femoral neck fracture Post-op diagnosis: same Procedure: Pecutaneous pinning right thip Implants: [place] 6.5 percutaneous pinning Surgeon: Luke Carrasquillo MD Anesthesia: GETA and regional Was an Forest Technician used for this Procedure?: No Estimated blood loss (mL): 20 IV fluids (mL): 500 Pathology: none sent Condition: stable Disposition: PACU Procedure in detail:? Patient was brought to the operating room and prepped and draped in standard sterile fashion.? Time-out was called to identify proper site procedure proper surgeon and IV antibiotics per weight were administered.? She was positioned on the fracture table with slight internal rotation? and biplanar fluoroscopy confirmed fracture reduction.? I then made a stab incision at the level of the lesser. This was a valgus impacted femoral neck fracture. I then placed 3 k-wires in a inverted triangle configuration through the femoral neck and into the femoral head using standard AO technique. I used biplanar fluoro to confirm screw position on the AP and lateral projection. I was satisfied with the position of the k-wires I measured and then placed three partially threaded cancellous screws over the wires. I was satisfied with the fracture reduction and screw position. I copiously irrigated closed with absorbable sutures greer and injected 30 mL of into the area of the incisions.? Patient was placed in sterile dressing awakened from anesthesia brought to recovery room stable condition there were no known complications.
== END 2024-12-02 13:03 | disposition skilled nursing facility (03) | DRG 482 ==
LOC: HO.ED 15:06 → HO.EDOVER 15:22 → HO.S3 15:40
PROVIDERS: Orthopaedic Surgery; Admitting Provider Student in an Organized Health Care Education/Training Program; Emergency Provider Emergency Medicine; PCP Internal Medicine; Visit Provider Student in an Organized Health Care Education/Training Program
PROC: 0QS636Z Reposition Right Upper Femur with Intramedullary Internal Fixation Device, Percutaneous Approach (ICD-10-PCS; principal; 2024-11-30 12:30)
DX: S72.011A Unspecified intracapsular fracture of right femur, initial encounter for closed fracture (principal); W01.0XXA Fall on same level from slipping, tripping and stumbling without subsequent striking against object, initial encounter; I10 Essential (primary) hypertension; E78.5 Hyperlipidemia, unspecified; Y93.73 Activity, racquet and hand sports; Z79.899 Other long term (current) drug therapy
CPT/HCPCS: 36415; 71045; 73502; 80048; 80053; 85025; 85027; 86850; 86900; 86901; 93005; 97162; 97166; 99285; C1713; J0690; J1100; J2270; J2371; J2405; J2704; J2795; J3010

== ENCOUNTER → 2024-11-29 13:58 | Outpatient (BNV) | payer MEDICARE, SELFPAY | PROVIDERS: Admitting Provider Student in an Organized Health Care Education/Training Program; Emergency Provider Emergency Medicine; PCP Internal Medicine; Visit Provider Radiology Diagnostic Radiology | DX: S72.031A Displaced midcervical fracture of right femur, initial encounter for closed fracture (principal) | CPT/HCPCS: 73502 ==

== ENCOUNTER → 2024-11-29 15:03 | Outpatient (BNV) | payer MEDICARE, SELFPAY | PROVIDERS: Admitting Provider Student in an Organized Health Care Education/Training Program; Emergency Provider Emergency Medicine; PCP Internal Medicine; Visit Provider Internal Medicine Cardiovascular Disease | DX: Z04.3 Encounter for examination and observation following other accident (principal) | CPT/HCPCS: 93010 ==

== ENCOUNTER → 2024-11-29 15:15 | Outpatient (BNV) | payer MEDICARE, SELFPAY | PROVIDERS: Admitting Provider Student in an Organized Health Care Education/Training Program; Emergency Provider Emergency Medicine; PCP Internal Medicine; Visit Provider Student in an Organized Health Care Education/Training Program | DX: S72.011A Unspecified intracapsular fracture of right femur, initial encounter for closed fracture (principal); W18.09XA Striking against other object with subsequent fall, initial encounter | CPT/HCPCS: 99223; 99232 ==

== ENCOUNTER → 2024-11-29 15:15 | Outpatient (BNV) | payer MEDICARE, SELFPAY | PROVIDERS: Admitting Provider Student in an Organized Health Care Education/Training Program; Emergency Provider Emergency Medicine; PCP Internal Medicine | DX: S72.011A Unspecified intracapsular fracture of right femur, initial encounter for closed fracture (principal) | CPT/HCPCS: 27235; 99024; 99222 ==

== ENCOUNTER 2024-12-15 08:04 | Outpatient (REF) | payer MEDICARE, SELFPAY ==
--- NOTE | ~2024-12-15 | XR_ITS ---
EXAMINATION: XR FEMUR, RIGHT CLINICAL INFORMATION: S72.90XA - Unspecified fracture of unspecified femur, initial encounter ... COMPARISON: Right hip x-ray dated November 29, 2024. TECHNIQUE: AP and lateral views of the right femur were obtained. FINDINGS: 3 metallic transfixation screws through the femoral head neck intertrochanteric region of the right femur with improved alignment of the subcapital fracture. The diaphysis and distal epiphysis and metaphysis of the femur are intact. Skin greer in the lower right hip/proximal upper thigh. XR/XR femur RT 2V IMPRESSION: Status post open reduction internal fixation of the subcapital right femoral fracture with 3 transfixation screws. Electronically signed by: Denis Sandhu MD 12/15/2024 09:11 AM EDT
--- OUTSIDE RECORDS SUMMARY | 2024-12-15 08:10 | XMS_ITS | Patient Health Record ---
Author Organization [facility] Address [address] [address] [place] [address] Care Team Providers Care Duplicator Punch Operator Name Role Phone Ross Gomes MD Primary Care Provider Unavaila ble Reason For Referral No Information Plan Of Treatment No Information
== END 2024-12-15 08:05 | disposition home or self-care (01) ==
LOC: HO.HOSX 08:04
PROVIDERS: Visit Provider Physician Assistant
DX: S72.011D Unspecified intracapsular fracture of right femur, subsequent encounter for closed fracture with routine healing (principal); X58.XXXD Exposure to other specified factors, subsequent encounter
CPT/HCPCS: 73552; 99212

== ENCOUNTER 2024-12-15 08:49 | Outpatient (AMB) | payer MEDICARE, SELFPAY ==
--- NOTE | 2024-12-15 09:06 | A.OFFVIS_ITS ---
Intake Visit Reasons: PO-RT hip CRPP with NE 11/30/24 Intake Note: Sari is a 74 year old woman who presents today for a post operative visit after undergoing a right hip CRPP, performed by Dr Carrasquillo on 11/30/24. Patient reports she is doing better, her current pain level is a 4-5 out of 10. Allergies No Known Allergies Allergy (Verified 12/15/24 09:12) Medication List - Last Reconciled 12/15/24 by DL Mohan-Moises ascorbic acid (vitamin C) 500 mg PO DAILY aspirin 325 mg PO DAILY 6 weeks atorvastatin 20 mg PO DAILY calcium citrate-vitamin D3 500 mg-12.5 mcg (500 unit) 2 tabs PO DAILY cholecalciferol (vitamin D3) 50 mcg PO DAILY losartan-hydrochlorothiazide 50-12.5 mg 1 tab PO DAILY magnesium glycinate 100 mg PO DAILY omega 7-nru-qan-fish oil 1,000 (120-180) mg (Fish Oil) 1 cap PO DAILY oxycodone 5 mg PO Q6H PRN vitamins A,C,J-mkfj-quirlu 4,296 mcg-226 mg-90 mg (PreserVision AREDS) 1 cap PO BID HPI HPI PO-RT hip CRPP with NE 11/30/24: Details: 74-year-ol female presents to the office today status post right hip CRPP on 11/30/[address] Carrasquillo. She is currently in a rehab facility and ambulates with a walker. She has some difficulty with hip flexion due to discomfort and weakness. [facility] Medical History Hypertriglyceridemia Cough due to AMANDA inhibitor History of colon polyps Osteoporosis Dyslipidemia Essential hypertension Surgical History Hx of colonoscopy History of left breast biopsy History of laparoscopic cholecystectomy Family History Brother Diabetes mellitus Essential hypertension Sister Diabetes mellitus Essential hypertension Breast cancer, Onset Age: 70 Mother Essential hypertension Father Essential hypertension Social History Household Members: Children Housing: House Are you a primary aged or disabled care worker to a significant other at home: No Do you presently have visiting nurse or other home services: No Patient Tobacco Use Status: Never used Tobacco e-Cigarette/Vaping Use: Never Used Second Hand Smoke Exposure: No service: No Current occupational status: retired Cognitive needs: No Hearing needs: No Vision needs: Yes Review of Systems Const All systems reviewed & are unremarkable except as noted in HPI and below Physical Exam Extrem Other: Rt hip incision c/d/i. No erythema. She does has dependent edema in the LLE, calf supple non tender, NVI Results Reviewed Results Reviewed: X-rays of the right hip obtained in the office today and reviewed by me show intact cannulated screws with stable fracture reduction Assessment & Plan Assessment & Plan (1) Subcapital fracture of right femur: Code(s): S72.011A - Unspecified intracapsular fracture of right femur, initial encounter for closed fracture Category: Medical Plan: Wymore removed today Steri-Strips applied. The patient will continue weight- bearing as tolerated and working on gait training and strengthening exercises. She will see us back in 4 weeks with x-rays, sooner if needed. Orders: Orders XR femur RT 2V Today S72.90XA - Unspecified fracture of unspecified femur, initial encounter for closed fracture Coding Level of Care Code Global (87240) Diagnoses Subcapital fracture of right femur S72.011A
== END 2024-12-15 10:25 | disposition home or self-care (01) ==
LOC: HO.HOS 08:50
PROVIDERS: PCP Internal Medicine; Visit Provider Physician Assistant
DX: S72.011A Unspecified intracapsular fracture of right femur, initial encounter for closed fracture (principal)
CPT/HCPCS: 99024

== ENCOUNTER → 2024-12-15 08:52 | Outpatient (BNV) | payer MEDICARE, SELFPAY | PROVIDERS: Visit Provider Radiology Diagnostic Radiology | DX: S72.031D Displaced midcervical fracture of right femur, subsequent encounter for closed fracture with routine healing (principal) | CPT/HCPCS: 73552 ==

== ENCOUNTER → 2024-12-20 23:59 | Outpatient (BNV) | payer MEDICARE, SELFPAY | PROVIDERS: PCP Internal Medicine; Visit Provider Internal Medicine | DX: M80.051D Age-related osteoporosis with current pathological fracture, right femur, subsequent encounter for fracture with routine healing (principal); I10 Essential (primary) hypertension; E78.5 Hyperlipidemia, unspecified | CPT/HCPCS: G0180 ==

== ENCOUNTER 2025-01-17 08:25 | Outpatient (AMB) | payer MEDICARE, SELFPAY ==
--- NOTE | 2025-01-17 08:30 | A.OFFVIS_ITS ---
Intake Visit Reasons: PO-RT hip CRPP with NE 11/30/24 Intake Note: Sari is a 74 year old woman who presents today for a post operative visit status post right hip CRPP, performed by Dr Carrasquillo on 11/30/24. At her last visit she will continue to weight-bear as tolerated, she was instructed to work on gait trainging and strengthening exercises. Follow up in 4 weeks with x-rays. Today patient reports she is doing better, states mild pain in her hip. She continues to attend therapy. Allergies No Known Allergies Allergy (Verified 01/17/25 08:41) Medication List - Last Reconciled 01/17/25 by DL Mohan-Moises ascorbic acid (vitamin C) 500 mg PO DAILY atorvastatin 20 mg PO DAILY calcium citrate-vitamin D3 500 mg-12.5 mcg (500 unit) 2 tabs PO DAILY cholecalciferol (vitamin D3) 50 mcg PO DAILY losartan-hydrochlorothiazide 50-12.5 mg 1 tab PO DAILY magnesium glycinate 100 mg PO DAILY omega 5-ice-yya-fish oil 1,000 (120-180) mg (Fish Oil) 1 cap PO DAILY vitamins A,C,P-ioea-mftgso 4,296 mcg-226 mg-90 mg (PreserVision AREDS) 1 cap PO BID HPI HPI PO-RT hip CRPP with NE 11/30/24: Details: 74-year-old female returns to the office today status post right hip CRPP on 11/30/[address] Carrasquillo. She continues to ambulate with a walker. She continues to work with home physical therapy. [facility] Medical History Hypertriglyceridemia Cough due to AMANDA inhibitor History of colon polyps Osteoporosis Dyslipidemia Essential hypertension Surgical History Hx of colonoscopy History of left breast biopsy History of laparoscopic cholecystectomy Family History Brother Diabetes mellitus Essential hypertension Sister Diabetes mellitus Essential hypertension Breast cancer, Onset Age: 70 Mother Essential hypertension Father Essential hypertension Social History Household Members: Children Housing: House Are you a primary rn intensive care unit to a significant other at home: No Do you presently have visiting nurse or other home services: No Patient Tobacco Use Status: Never used Tobacco e-Cigarette/Vaping Use: Never Used Second Hand Smoke Exposure: No service: No Current occupational status: retired Cognitive needs: No Hearing needs: No Vision needs: Yes Review of Systems Const All systems reviewed & are unremarkable except as noted in HPI and below Physical Exam Extrem Other: Rt hip incision well healed. She has no pain with hip flexion or range of motion. Calf is supple and nontender neurovascularly intact. Results Reviewed Results Reviewed: X-rays of the right hip obtained in the office today and reviewed by me show intact cannulated screws with stable fracture reduction and interval healing Assessment & Plan Assessment & Plan (1) Subcapital fracture of right femur: Code(s): S72.011A - Unspecified intracapsular fracture of right femur, initial encounter for closed fracture Category: Medical Plan: Patient will continue to work with physical therapy progressing her gait pattern and strength. I explained to the patient it is typically 3 months of healing and regaining her strength and conditioning. I will see her back in 6 weeks with x-rays, sooner if needed. Orders: Orders XR hip RT min 2V Today M25.551 - Pain in right hip Coding Level of Care Code Global (85958) Diagnoses Subcapital fracture of right femur S72.011A
--- OUTSIDE RECORDS SUMMARY | 2025-01-17 08:57 | XMS_ITS | Patient Health Record ---
Author Organization [facility] Address [address] [address] [place] [address] Care Team Providers Care Differential Specialist Name Role Phone Ross Gomes MD Primary Care Provider Unavaila ble Reason For Referral No Information Plan Of Treatment No Information
== END 2025-01-17 09:24 | disposition home or self-care (01) ==
LOC: HO.HOS 08:26
PROVIDERS: PCP Internal Medicine; Visit Provider Physician Assistant
DX: S72.011A Unspecified intracapsular fracture of right femur, initial encounter for closed fracture (principal)
CPT/HCPCS: 99024

== ENCOUNTER → 2025-01-17 08:27 | Outpatient (BNV) | payer MEDICARE, SELFPAY | PROVIDERS: Visit Provider Radiology Diagnostic Radiology | DX: S72.031A Displaced midcervical fracture of right femur, initial encounter for closed fracture (principal) | CPT/HCPCS: 73502 ==

== ENCOUNTER 2025-01-17 08:54 | Outpatient (REF) | payer MEDICARE, SELFPAY ==
--- NOTE | ~2025-01-17 | XR_ITS ---
EXAMINATION: XR HIP 2 OR MORE VIEWS RIGHT HISTORY: M25.551 - Pain in right hip COMPARISON: Comparison is made with the prior examination 11/29/2024. FINDINGS: A single AP view of the pelvis and two views of the right hip are submitted. The bones are osteopenic. The patient is status post internal fixation of the previously noted subcapital fracture with 3 cannulated screws. The joint space is maintained. The soft tissues are unremarkable. XR/XR hip RT min 2V IMPRESSION: Internal fixation of a subcapital fracture of the right femur. Electronically signed by: Orlin Kurtz MD 01/17/2025 08:54 AM EDT
--- OUTSIDE RECORDS SUMMARY | 2025-01-18 09:54 | XMS_ITS | Data Portability ---
Author Organization [place] [facility] [employer] Address [address] [address] Care Team Providers Care Hospitality Director Name Role Phone EJ FRAGOSO Primary Care Provider [phone] Assessment No assessment recorded. Plan of Treatment Reminders Order Date Submit Date Provider Last Modified By Organization Details Last Modified Time Details Appointments None record ed. Lab None record ed. Referral None record ed. Procedures None record ed. Surgeries None record ed. Imaging None record ed. Medication Orders None record ed. Patient TargetsNo targets recorded. Patient Instructions Encounter Date Encounter Id Patient Instructions Last Modified By Organization Details Last Modified Time 12/09/2016 [id number] high-fiber diet: care instructions Not available 12/23/2016 12:35:52 colonoscopy: before your procedure Not available 12/23/2016 12:35:52 colonoscopy: what to expect at home Not available 12/23/2016 12:35:52 GI prep dnegbenebor Not available 11/21 17:11:43 Colonoscopy for screening will be performed. Risks, benefits and alternatives have been discussed with the patient. Verbal consent has been obtained and written consent will be obtained the day of the procedure. dnegbenebor Not available 12/09/2016 17:11:43 01/26/2017 [id number] colon polyps: care instructions [email or web address] Not available 01/26/2017 16:57:23 Reason for Referral None Reported. Results Created Date Observation Date Name Description Value Unit Range Abnormal Flag Note LastModifiedBy Organization Detail LastModifiedTime 01/21/20 17 01/20/2017 surgi hair patho logy study surgical See Note ----- ----- ----- ----- ----- ----- ----- ----- ----- ----- ----- ----- ----- ----- ----- ----- ----- ----- -- PATIE NT: COLON [place] [id number] LOC: [facility] U #: [id number] AGE/S X: 66/F ROOM: RE01/[address]: DOUGLAS ONEAL : 11/18 BED: DIS: STATU S: [place] TLOC: ----- ----- ----- ----- ----- ----- ----- ----- ----- ----- ----- ----- ----- ----- ----- ----- ----- ----- -- SPEC #: [id number] COPY TO: YESSICA FRAGOSO III, MD ----- ----- ----- ----- ----- ----- ----- ----- ----- ----- ----- ----- ----- ----- ----- ----- ----- ----- -- DIAGN OSIS: Colon , leandro huerta, polyp : TUBUL AR ADENO MA. Shayan Brantley MD, PhD, FCAP [email or web address] SPECI MEN(S ) RECEI CARL: A. COLON BIOPS Y - BX POLYP @ASCE ND CL HISTO RY/RE ASON FOR BX: Rosa bang GROSS DESCR IPTIO N: A-In forma sherry label ed biop sy polyp leandro huerta 2 tissu es, 0.2 cm and 0.1 cm submi tted in toto in AA. GMV Mallory d (sign ature on file) _ SHAYAN BRANTLEY MD 01/21 ----- ----- ----- ----- ----- ----- ----- ----- ----- ----- ----- ----- ----- ----- ----- ----- ----- ----- -- Not Available [facility] - Pathology [address], [place], [address], 01/21/2017 17:20:53 07/01/19 22 06/30/2021 SARS- COV2 BY PANT ER sars-cov2 source AGUSTIN MANTILLA Not Available [facility] - Pathology [address], [place], [address], 07/01/2021 12:56:33 07/01/19 22 06/30/2021 SARS- COV2 BY PANTH ER sars-cov2 by panther NEGATI VE SARS- CoV-2 was NOT DETEC KARAN by nucle ic acid ampli ficat ion. A posit arelis resul t indic ates the detec tion of nucle ic acid from the relev ant virus . Nucle ic acid may persi st even after the virus is no longe r viabl e. Negat arelis resul ts do not precl ude SARS- CoV-2 infec tions and shoul d not be used as the sole basis for treat ment or other manag ement decis ions. The Aptim a SARS- CoV-2 assay lette r of autho rizat ion, along with the autho rized fact sheet for Healt h Care provi ders, the autho rized fact sheet for patie nts, and autho rized label ing are avail able on the FDA websi te: https ://ww w.fda .gov/ medic al-de vices /karissa gency -situ ation s-med ical- devic es/em ergen cy-us e-aut horiz ation #covi d19iv d. PERFO RMED BY: [facility] [address] [facility] [facility] [address] Not Available [facility] - Pathology [address], [place], [address], 07/01/2021 12:56:33 07/03/19 22 07/02/2021 SURGI HAIR surgical See Note ----- ----- ----- ----- ----- ----- ----- ----- ----- ----- ----- ----- ----- ----- ----- ----- ----- ----- -- EVERETTE NT: COLON ,[place] V[place]einier [id number] LOC: [facility] U #: [id number] AGE/S X: 70/F ROOM: RE07/[address]: DOUGLAS ONEAL : 11/18 BED: DIS: STATU S: [facility] TLOC: ----- ----- ----- ----- ----- ----- ----- ----- ----- ----- ----- ----- ----- ----- ----- ----- ----- ----- -- SPEC #: [id number] COPY TO: YESSICA FRAGOSO III, MD ----- ----- ----- ----- ----- ----- ----- ----- ----- ----- ----- ----- ----- ----- ----- ----- ----- ----- -- DIAGN OSIS: A-Santos moore ng colon polyp , biops y: TUBUL AR ADENO MA. NEGAT ARELIS FOR HIGH GRADE DYSPL TISH OR MALIG JAMILA . B-Asc endin g colon polyp , biops y: TUBUL AR ADENO MA. NEGAT ARELIS FOR HIGH GRADE DYSPL TISH OR MALIG JAMILA . C-Tra nsver se colon polyp , biops y: TUBUL AR ADENO MA. NEGAT ARELIS FOR HIGH GRADE DYSPL TISH OR MALIG JAMILA . Nikunj salas MD, FCAP [email or web address] SPECI MEN(S ) RECEI CARL: A. COLON BIOPS Y - DESCE ND COLON POLYP BX B. COLON BIOPS Y ADDIT IONAL - ASCEN D COLON POLYP BX C. COLON BIOPS Y ADDIT IONAL - TRANS V COLON POLYP BX CL HISTO RY/RE ASON FOR BX: Histo ry of colon polyp s GROSS DESCR IPTIO N: A- desc endin g colon polyp biops y are two stone tissu es measu ring 0.1 cm and 0.3 cm which are submi tted in toto label ed AA. B- asce nding colon polyp biops y is a 0.1 cm irreg ular stone soft tissu e which is inked and submi tted in toto label ed BA. C- tr ansve rse colon polyp biops y are four stone tissu es rangi ng from 0.1 cm to 0.2 cm which are submi tted in toto label ed CA. RG Mallory d (sign ature on file) _ NIKUNJ SALAS MD 07/03 ----- ----- ----- ----- ----- ----- ----- ----- ----- ----- ----- ----- ----- ----- ----- ----- ----- ----- -- Not Available [facility] - Pathology [address], [place], [address], 07/03/2021 10:31:52 Result Notes None recorded. Problems Name Problem SNOMED Code Status Onset Date Resolution Date Notes Provider Name and Address Organization Details Recorded Time Hypertensive disorder 39056792 Active 2016 Zoraida hdez MD [address] [place] [address], [address], [place], [address], [facility] 7 17:11:54 Problem Notes None recorded. Medical Equipment None Reported. Allergies No known drug allergies Medications Name Sig Start Date Stop Date Status Note LastModified by Organization Details LastModified Time atorvastatin 20 mg tablet TAKE 1 TABLET BY MOUTH EVERY DAY active Not Available Not Available No t Available lisinopril 20 mg-hydrochlorot hiazide 12.5 mg tablet TAKE 1 TABLET BY MOUTH EVERY DAY active Not Available Not Available No t Available metronidazole 500 mg tablet active Not Available Not Availabl e Not Available ciprofloxacin 500 mg tablet active Not Available Not Availabl e Not Available oxycodone-aceta minophen 5 mg-325 mg tablet active Not Available Not Available Not Available Vitals Date Recorded Body height Body mass index (BMI) Body weight Provider Name and Address Organization Details Last Updated DateTime 07/10/2021 157.48 cm 26.7 kg/m2 10063.49 g Zoraida Juarez MD [address] [place] [address],[place] [address], [place], [address], [facility] [employer] [employer] 07/10/2021 16:45:22 Date Recorded Systolic And Diastolic Provider Name and Address Organization Details Last Updated DateTime 12/09/2016 157/87 mm[Hg] Zoraida Juarez MD [address] [place] [address],[place] [address], [place], [address], [facility] [employer] [employer] 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 12/09/2016 16:56:56 Date Recorded Body weight Systolic And Diastolic Provider Name and Address Organization Details Last Updated DateTime 01/26/2017 57877.49 g 157/87 mm[Hg] Zoraida Juarez MD [address] [place] [address],[address], [place], [address], [place] [facility] 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 01/26/2017 16:57:28 Social History Question Answer Notes LastModified by [facility] Details LastModified Time Tobacco Smoking Status Never Smoker Not Available [employer] 01/23/2020 03:32:35 What Type Of Diet Are You Following? REGULAR [id number] Information not available 01/23/2020 Live Alone Or With Others? With Others Information not available 12/09/2016 Marital Status Informati on not available 12/09/2016 What Was The Date Of Your Most Recent Tobacco Screening? 01/26/2017 [id number] Information not available 01/23/2020 Sex: Unknown Functional Status Question Answer Note LastModified by [facility] Details LastModified Time What is your level of alcohol consumption? Occasional [id number] Information not available 01/23/2020 Mental Status None recorded. Family History Relationship Description Onset Age of this Age Resolved Age Notes LastModified by Organization Details LastModified Time Father Hypertensive disorder [email or web address] Not available 11/21 17:12:10 Mother Hypertensive disorder [email or web address] Not available 11/21 17:12:10 Medical History Condition Response Coronary Artery Disease N Gout N Colon Cancer N Kidney Stones N Hyperthyroidism N Hypothyroidism N COPD N Depression N Osteoporosis/Osteopenia N Anemia N Diverticulitis/Diverticulosis Y Lung disease N Colon Polyps Y Gastric ulcer N Crohn's disease N Anxiety Disorder N Diabetes N Bleeding Disorder N Arthritis N Seizures/Epilepsy N Tuberculosis N PUD N Hyperlipidemia N Cancer N Stroke N Asthma N Ulcerative colitis N Sleep Apnea N GERD/Reflux N Hepatitis N Cirrhosis N Liver Disease N Heart Disease N Atrial fibrillation N Irritable Bowel Syndrome N Hypertension N Gastroparesis N Kidney Disease N Barretts esophagus N Gynecological HistoryNo gynecological history recorded. Obstetrics History GPAL:G 0 P 0 0 0 0 Past Encounters Encounter ID Performer Location Encounter Start Date Encounter Closed Date Diagnosis/Indication Diagnosis SNOMED-CT Code Diagnosis ICD10 Code Diagnosis IMO Codes Diagnosis Note [id number] Zoraida Juarez MD [facility] [address] [place] [id number] 12/09/2016 16:23:26 12/14/2016 19:17:50 Screening for malignant neoplasm of colon 171627155 Z12.11 Will schedule colonoscop y Diverticular disease 397 142921 K57.90 High fiber diet. No persistent signs of diverticul itis [id number] MD TANISHA Corona [address] [place] [id number] 01/20/2017 11:53:51 01/20/2017 12:54:23 [id number] Zoraida Juarez MD [facility] [address] [place] [id number] 01/26/2017 16:42:53 01/29/2017 18:56:09 Benign neoplasm of colon 41655878 D12.6 Next colonoscop y in 3 years [id number] MD TANISHA Corona [address] [place] [id number] 07/02/2021 11:10:21 07/05/2021 21:54:00 History of polyp of colon 060648397 Z86.010 [id number] [facility] [address] [place] [phone] 07/10/2021 16:44:57 07/15/2021 22:48:45 Tubular adenomatous polyp of colon 349545262 D12.6 Next colonoscop y in 3 years Health Concerns Section Related Observation LastModified by Organization Detai ls LastModified Time None Recorded Concern Status LastModified by Organization Details LastModified Time None Recorded Advance Directives Directive None Recorded Payers Insurance Date Sequence Insurance Name Policy Number Policy Davis Covered Member ID Davis Member ID Guarantor Name 07/10/2021 1 MEDICARE B-CT: NGS Sari C Colon [id number] Sari Colon 07/15/2021 2 A[employer] (MEDICARE SUPPLEMENT) Sari Colon [id number] Sari Colon 07/10/2021 1 [employer] [id number] Sari Colon [id number] Sari Colon Notes Date Note Type Note Provider Name and Address Organization Details Recorded Time 12/09/2016 text/html Colonoscopy ScreeningReported by PatientColonoscopy ScreeningFor context, patient reportsprior examinationbut reportsno history of colon polypsandno history of ulcerative colitis or crohn's disease. For gi symptoms, patient reportsno abdominal pain,no diarrhea,no constipation,no recent change in bowel movements,no change in the stool,no color change in stool, andno rectal bleeding. For associated symptoms, patient reportsnormal appetite,no fever,no chills,no nausea, andno vomiting. For family history, patient reportsno polypsandno colon cancer.recent diverticulitis(October) a TSH Zoraida Juarez MD [address] [place] [address],[address] [facility], [place], [address], [place] [facility] 12/09/2016 17:14:14 01/26/2017 text/html Colonoscopy F/UR eported by Gen[facility], diverticulosis Zoraida Juarez MD [address] [place] [address],[address] [facility], [place], [address], [place] [facility] 01/26/2017 17:06:16 07/10/2021 text/html Colonoscopy F/UR eported by Deya Juarez MD [address] [place] [address],[address] [facility], [place], [address], [place] [facility] 07/10/2021 16:46:35 OBGyn Episode No OBEpisode recorded.
--- OUTSIDE RECORDS SUMMARY | 2025-01-18 09:55 | XMS_ITS | Patient Health Record ---
Author Organization [facility] Address [address] [address] [place] [address] Care Team Providers Care Ict Developer Name Role Phone Ross Gomes MD Primary Care Provider Unavaila ble Reason For Referral No Information Plan Of Treatment No Information
== END 2025-01-17 08:55 | disposition home or self-care (01) ==
LOC: HO.HOSX 08:54
PROVIDERS: Visit Provider Physician Assistant
DX: S72.011D Unspecified intracapsular fracture of right femur, subsequent encounter for closed fracture with routine healing (principal); X58.XXXD Exposure to other specified factors, subsequent encounter
CPT/HCPCS: 73502; 99212

== ENCOUNTER 2025-02-06 14:53 | Outpatient (AMB) | payer MEDICARE, SELFPAY ==
--- NOTE | 2025-02-06 15:08 | A.OFFVIS_ITS ---
Vital Signs 02/06/25 15:11 Height 5 ft 2.29 in Weight 156 lb 15.506 oz BMI 28.4 BP 116/68 Blood Pressure Location Lt brachial Position Sitting Pulse 71 Pulse Source Pulse Oximeter Pulse Oximetry (%) 94 Oxygen Delivery Method Room Air Intake Visit Reasons: Osteoporosis f/u Intake Note: Patient present today for Osteoporosis follow up. Business Education Instructor Required: No Accompanied by: Self / Same As Patient Allergies No Known Allergies Allergy (Verified 02/06/25 15:12) Medication List - Last Reconciled 02/06/25 by Orlin Egan MD ascorbic acid (vitamin C) 500 mg PO DAILY atorvastatin 20 mg PO DAILY calcium citrate-vitamin D3 500 mg-12.5 mcg (500 unit) 2 tabs PO DAILY cholecalciferol (vitamin D3) 50 mcg PO DAILY losartan-hydrochlorothiazide 50-12.5 mg 1 tab PO DAILY magnesium glycinate 100 mg PO DAILY omega 1-wbo-jxl-fish oil 1,000 (120-180) mg (Fish Oil) 1 cap PO DAILY vitamins A,C,J-gdyu-rggeln 4,296 mcg-226 mg-90 mg (PreserVision AREDS) 1 cap PO BID HPI Comments Details: 7 The patient is a 74-year-old female presenting with osteoporosis management and treatment follow-up. She has been diagnosed with osteoporosis for three years and was initially treated with Evenity for one year before transitioning to Prolia. She has received two doses of Prolia since June 2023. Notably, there has been no history of fractures in the hip or spine, and the patient has experienced a height reduction from 5'3 to 5'2 . Her family history is negative for osteoporosis or hip fractures. She denies the use of certain medications that could influence bone density and is up to date with dental examinations. The patient manages her calcium and vitamin D intake through diet and supplementation, which is reportedly maintaining her levels. First diagnosed in 3 yrs ago . Received treatment in the past with Evenity for 1 yr then Prolia , 2 doses . She was started on Prolia by previous PCP, 1st dose was given 06/2023, 2nd dose received 01/2024, due for her next dose in 07/09/2024. Tolerated treatment well without complication. No history of pathologic fracture or ONJ. Has several servings of dietary calcium per day in the form of cheese , bok ch oy . Takes Calcium supplement ? mg daily in divided doses. Takes ? IU of Vitamin D daily. The patient occasionally consumes calcium-rich foods such as Cymraes cheese, broccoli, and cheddar cheese, while avoiding cereal. She takes a combination supplement of calcium, magnesium, and zinc. A preference for obtaining calcium from dietary sources is noted, and she is advised to monitor calcium intake to reach a total of 1200 mg daily, supplementing as necessary. Additionally, she maintains her vitamin D levels through a combination of supplements. Denies ever using PPI, anticoagulant, antiepileptic or glucocorticoid medication. Does weight bearing exercise 5 days per week in the form of wt training . 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 UTD on dental cleanings and sees dentist every 6 months. No planned upcoming dental work or extractions. No smoking or ETOH use DXA dated 10/2023 :[place] TBS adjusted T Score =-3.8 Labs: Secondary workup was negative. Suffered a fracture of the left hip in 12/2024. Orthopedic follow up shows fracture is healing [facility] Medical History (Updated 02/06/25 @ 13:31 by Adele Asencio MD) History of fracture of right hip Hypertriglyceridemia Cough due to AMANDA inhibitor History of colon polyps Osteoporosis Dyslipidemia Essential hypertension Surgical History (Updated 02/06/25 @ 15:11 by SPENCER Marcial) History of surgery Hx of colonoscopy History of left breast biopsy History of laparoscopic cholecystectomy Family History Brother Diabetes mellitus Essential hypertension Sister Diabetes mellitus Essential hypertension Breast cancer, Onset Age: 70 Mother Essential hypertension Father Essential hypertension Social History Household Members: Children Housing: House Are you a primary hearing care practitioner to a significant other at home: No Do you presently have visiting nurse or other home services: No Patient Tobacco Use Status: Never used Tobacco e-Cigarette/Vaping Use: Never Used Second Hand Smoke Exposure: No service: No Current occupational status: retired Cognitive needs: No Hearing needs: No Vision needs: Yes Physical Exam Vital Signs: Last Vital Signs Pulse 71 02/06/25 15:11 BP 116/68 02/06/25 15:11 Pulse Ox 94 02/06/25 15:11 Oxygen Delivery Method Room Air 02/06/25 15:11 BMI result Body Mass Index 28.4 Assessment & Plan Assessment & Plan (1) Osteoporosis: Comment: Had Evenity for 1 year then started Prolia had 2 doses already, given by an Dr Bk Jackson in [place] Code(s): M81.0 - Age-related osteoporosis without current pathological fracture Category: Medical Qualifiers: Osteoporosis type: age-related Presence of current pathological fracture: without current pathological fracture Qualified Code(s): M81.0 - Age- related osteoporosis without current pathological fracture Plan: This is a 73-year-old female with a history of osteoporosis previously treated with a Evenity for 1 year and then transition to Prolia for 2 doses. . Secondary workup was negative. Patient has suffered a hip fracture last month which appears to be healing. The fracture happened after a fall from standing Plan is to attempt to get the Evenity approved for another year Orders: Orders Albumin Level Today M81.0 - Age-related osteoporosis without current pathological fracture Calcium Today M81.0 - Age-related osteoporosis without current pathological fracture Medications: New romosozumab-aqqg (Evenity) 210 mg (2.34 mL) subcut QMONTH 2.34 mL 11RF Coding Level of Care Code Est Pt Level 3 (11369) Diagnoses Age-related osteoporosis without current pathological fracture M81.0 Osteoporosis type: age-related Presence of current pathological fracture: without current pathological fracture
[2025-02-06 15:11] VITALS: BP 116/68; PULSE 71; O2SAT 94; BMI 28.4
--- OUTSIDE RECORDS SUMMARY | 2025-02-07 12:53 | XMS_ITS | Data Portability ---
Author Organization [place] [facility], [place] [employer] auto[employer] Address [address] [address] Care Team Providers Care Hazardous Waste Management Specialist Name Role Phone EJ FRAGOSO Primary Care Provider [phone] Assessment No assessment recorded. Plan of Treatment [...] By Organization Details Last Modified Time 12/09/2016 09904 high-fiber diet: care instructions Not available 12/23/2016 [...] procedure. [email or web address] Not available 12/09/2016 17:11:43 01/26/2017 51480 colon polyps: care instructions [email or web address] Not available [...] ----- ----- -- PATIE NT: COLON [place] [id number] LOC: [facility] U #: [id number] AGE/S X: 66/F ROOM: RE01/[address]: DOUGLAS ONEAL : 11/18 BED: DIS: STATU S: DEP [facility] TLOC: ----- ----- ----- ----- ----- ----- ----- ----- ----- ----- ----- ----- ----- ----- ----- ----- ----- ----- -- SPEC #: [id number] COPY TO: YESSICA FRAGOSO III, MD ----- ----- ----- ----- ----- ----- ----- ----- ----- ----- ----- ----- ----- ----- ----- ----- ----- ----- -- DIAGN OSIS: Colon , leandro uherta, polyp : TUBUL AR ADENO MA. Shayan Brantley MD, PhD, FCAP [phone] [email or web address] SPECI MEN(S ) RECEI CARL: A. [...] ----- ----- ----- ----- -- Not Available [facility] [address] [facility], [place], [address], 01/21/2017 17:20:53 07/01/19 22 06/30/2021 SARS- COV2 BY PANT ER sars-cov2 source AGUSTIN MANTILLA Not Available [facility] [address] [facility], [place], [address], 07/01/2021 12:56:33 07/01/19 22 06/30/2021 SARS- COV2 [...] ation #covi d19iv d. PERFO RMED BY: [facility] ORD H[facility] [address] [facility] [facility] [place] [address] Not Available [facility] [address], [place], [address], 07/01/2021 12:56:33 07/03/19 22 07/02/2021 SURGI HAIR surgical See Note ----- ----- ----- ----- ----- ----- ----- ----- ----- ----- ----- ----- ----- ----- ----- ----- ----- ----- -- [place]ERETTE NT: COLON ,[place]YEN[place] VIDAReinier [id number] LOC: [facility] U #: [id number] AGE/S X: 70/F ROOM: RE07/[address]: DOUGLAS ONEAL : 11/18 BED: DIS: STATU S: DEP [facility] TLOC: ----- ----- ----- ----- ----- ----- [...] . Nikunj salas MD, FCAP evolp [email or web address] SPECI MEN(S ) [...] ----- ----- ----- ----- -- Not Available [facility] [address], [place], [address], 07/03/2021 10:31:52 Result Notes None recorded. Problems Name Problem SNOMED Code Status Onset Date Resolution Date Notes Provider Name and Address Organization Details Recorded Time Hypertensive disorder 54650888 Active 2016 Zoraida hdez MD [address] [place] [address], [address], [place], [address], [facility] 7 17:11:54 Problem Notes [...] Updated DateTime 07/10/2021 157.48 cm 26.7 kg/m2 15548.49 g Zoraida Juarez MD [address] [place] [address],[place] [address], [place], [address], [facility] 07/10/2021 16:45:22 Date Recorded Systolic And Diastolic Provider Name and Address Organization Details Last Updated DateTime 12/09/2016 157/87 mm[Hg] Zoraida Juarez MD [address] [place] [address],[place] [address], [place], [address], [facility] 12/09/2016 17:11:49 Date Recorded Body weight Body mass index (BMI) Body height Provider Name and Address Organization Details Last Updated DateTime 12/09/2016 69804.49 g 26.7 kg/m2 157.48 cm Machine Staker Temp [facility] 12/09/2016 16:56:56 Date Recorded Body weight Systolic And Diastolic Provider Name and Address Organization Details Last Updated DateTime 01/26/2017 97307.49 g 157/87 mm[Hg] Zoraida Juarez MD [address] [place] [address],[address], [place], [address], [place] [facility] 01/26/2017 17:05:01 Date Recorded Body height Body mass index (BMI) Provider Name and Address Organization Details Last Updated DateTime 01/26/2017 157.48 cm 26.7 kg/m2 [facility] 01/26/2017 16:57:28 Social History Question Answer Notes LastModified by Next [employer] Details LastModified Time Tobacco Smoking Status Never Smoker Not Available [employer] 01/23/2020 03:32:35 What Type Of Diet Are You Following? REGULAR [id number] Information not available 01/23/2020 Live Alone Or With Others? With Others Information not available 12/09/2016 Marital Status Informati on not available 12/09/2016 What Was The Date Of Your Most Recent Tobacco Screening? 01/26/2017 [id number] Information not available 01/23/2020 Sex: Unknown Functional Status Question Answer Note LastModified by [employer] Details LastModified Time What is your level of alcohol consumption? Occasional [id number] Information not available 01/23/2020 Mental Status None recorded. Family History Relationship Description Onset Age of this Age Resolved Age Notes LastModified by Organization Details LastModified Time Father Hypertensive disorder [email or web address] Not available 11/21 17:12:10 Mother Hypertensive disorder [email or web address] Not available 11/21 17:12:10 Medical History Condition Response Coronary Artery Disease N Gout N Colon Cancer N Kidney Stones N Hyperthyroidism N Depression N COPD N Hypothyroidism N Osteoporosis/Osteopenia N Anemia N Diverticulitis/Diverticulosis Y [...] ICD10 Code Diagnosis IMO Codes Diagnosis Note [id number] Zoraida Juarez MD [facility] [address] [place] [phone] 12/09/2016 16:23:26 12/14/2016 19:17:50 Screening for malignant neoplasm of colon 980929017 Z12.11 Will schedule colonoscop y Diverticular disease 397 462144 K57.90 High fiber diet. No persistent signs of diverticul itis 14669 MD TANISHA Corona [address] [place] [phone] 01/20/2017 11:53:51 01/20/2017 12:54:23 [id number] Zoraida Juarez MD [facility] [address] [place] [address] 01/26/2017 16:42:53 01/29/2017 18:56:09 Benign neoplasm of colon 30248274 D12.6 Next colonoscop y in 3 years 55973 MD TANISHA Corona [address] [place] [address] 07/02/2021 11:10:21 07/05/2021 21:54:00 History of polyp of colon 285854564 Z86.010 [id number] Zoraiad Juarez MD [facility] [address] [place] [phone] 07/10/2021 16:44:57 07/15/2021 22:48:45 Tubular adenomatous polyp of colon 857233038 D12.6 Next colonoscop y in 3 years Health Concerns Section Related Observation LastModified by Organization Detai ls LastModified Time None Recorded Concern Status LastModified by Organization Details LastModified Time None Recorded Advance Directives Directive None Recorded Payers Insurance Date Sequence Insurance Name Policy Number Policy Davis Covered Member ID Davis Member ID Guarantor Name 07/10/2021 1 MEDICARE B-CT: NGS Sari C Colon [id number] Sari Colon 07/15/2021 2 AARP (MEDICARE SUPPLEMENT) Sari Colon [id number] Sari Colon 07/10/2021 1 CIG[employer] [id number] Sari Colon [id number] Sari Colon Notes Date Note Type Note [...] cancer.recent diverticulitis(October) a TSH Zoraida Juarez MD [address] [place] [address],SUITE [facility], [place], [address], [place] [facility] 12/09/2016 17:14:14 01/26/2017 text/html Colonoscopy F/UR eported by Genoveva, diverticulosis Zoraida Juarez MD [address] [place] [address],SU[address] [facility], [place], [address], [place] [facility] 01/26/2017 17:06:16 07/10/2021 text/html Colonoscopy F/UR eported by Deya Juarez MD [address] [place] [address],[address] [facility], [place], [address], [place] [facility] 07/10/2021 16:46:35 OBGyn Episode No OBEpisode recorded.
--- OUTSIDE RECORDS SUMMARY | 2025-02-07 12:53 | XMS_ITS | Patient Health Record ---
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
== END 2025-02-06 15:29 | disposition home or self-care (01) ==
LOC: HO.ENCR 14:54
PROVIDERS: PCP Internal Medicine; Visit Provider Internal Medicine Endocrinology, Diabetes & Metabolism
DX: M81.0 Age-related osteoporosis without current pathological fracture (principal)
CPT/HCPCS: 99213

== ENCOUNTER → 2025-02-06 14:53 | Outpatient (BNVA) | payer MEDICARE, SELFPAY | PROVIDERS: PCP Internal Medicine; Visit Provider Internal Medicine Endocrinology, Diabetes & Metabolism | DX: M81.0 Age-related osteoporosis without current pathological fracture (principal) | CPT/HCPCS: 99212 ==

== ENCOUNTER 2025-03-01 09:24 | Outpatient (AMB) | payer MEDICARE, SELFPAY ==
[2025-03-01 09:51] VITALS: BMI 28.3
--- NOTE | 2025-03-01 09:51 | A.OFFVIS_ITS ---
Vital Signs 03/01/25 09:51 Height 5 ft 2.29 in Weight 156 lb BMI 28.3 Intake Visit Reasons: PO-RT hip CRPP with NE 11/30/24 Intake Note: Sari is a 74 year old year old woman who presents today for a post operative appointment s/p Right Hip CRPP 11/30/24. At her last visit she was instructed to continue working with PT. She is working with [facility] in [place]. Pt states she is feeling well and states PT is helpful. Allergies No Known Allergies Allergy (Verified 03/01/25 09:52) Medication List - Last Reconciled 03/01/25 by DL Mohan-Moises ascorbic acid (vitamin C) 500 mg PO DAILY atorvastatin 20 mg PO DAILY calcium citrate-vitamin D3 500 mg-12.5 mcg (500 unit) 2 tabs PO DAILY cholecalciferol (vitamin D3) 50 mcg PO DAILY losartan-hydrochlorothiazide 50-12.5 mg 1 tab PO DAILY magnesium glycinate 100 mg PO DAILY omega 0-vah-njv-fish oil 1,000 (120-180) mg (Fish Oil) 1 cap PO DAILY romosozumab-aqqg (Evenity) 210 mg (2.34 mL) subcut QMONTH vitamins A,C,H-nqpn-uwhvvy 4,296 mcg-226 mg-90 mg (PreserVision AREDS) 1 cap PO BID HPI Comments Details: History of Present Illness The patient is a 74 year old female presenting for a 3-month post-operative s/p Rt hip CRPP with NE. Her surgery was on 11/30/24. She started physical therapy in February, scheduled for twice a week, and had completed her third session yesterday. She reports being unable to put the same amount of weight on her right leg, although this is improving. She states that she limps when she walks without support. Social History - Functional Status: She is attending physical therapy twice a week. - Ambulation: She limps when walking without support and has difficulty with full weight-bearing on her right leg. [facility] Medical History (Updated 02/06/25 @ 13:31 by Adele Asencio MD) History of fracture of right hip Hypertriglyceridemia Cough due to AMANDA inhibitor History of colon polyps Osteoporosis Dyslipidemia Essential hypertension Surgical History (Updated 02/06/25 @ 15:11 by SPENCER Marcial) History of surgery Hx of colonoscopy History of left breast biopsy History of laparoscopic cholecystectomy Family History Brother Diabetes mellitus Essential hypertension Sister Diabetes mellitus Essential hypertension Breast cancer, Onset Age: 70 Mother Essential hypertension Father Essential hypertension Social History Household Members: Children Housing: House Are you a primary critical care transport nurse to a significant other at home: No Do you presently have visiting nurse or other home services: No Patient Tobacco Use Status: Never used Tobacco e-Cigarette/Vaping Use: Never Used Second Hand Smoke Exposure: No service: No Current occupational status: retired Cognitive needs: No Hearing needs: No Vision needs: Yes Review of Systems Narrative Review of Systems - Musculoskeletal: Reports weakness in the right leg with inability to bear full weight, though it is improving. - Reports locking of a finger. - Neurological: Reports a limp when walking without support. Physical Exam Exam Exam: Physical Exam - Gait: Exhibits a limp when walking. -ROM: Full ROM without pain -NVI Vital Signs: BMI result Body Mass Index 28.3 Results Reviewed Results Reviewed: X-rays of the right hip obtained in the office today and reviewed by me show intact cannulated screws with stable fracture reduction and interval healing Assessment & Plan Assessment & Plan (1) Subcapital fracture of right femur: Code(s): S72.011A - Unspecified intracapsular fracture of right femur, initial encounter for closed fracture Category: Medical Plan Plan 1. Unspecified fracture of right femur, subsequent encounter for closed fracture with routine healing S72.91XD The patient is 3 months post-operative from right leg fracture fixation. Recent X-rays are satisfactory, showing the hardware in a good position with no evidence of femoral head collapse. The hardware does not need to be removed. Her persistent limp is attributed to muscle weakness. The patient is advised to continue with physical therapy and perform home exercises. She should continue to increase activities as tolerated and is berny red to drive. Full recovery can take six to nine months, or up to a year, and she may experience flare-ups for another three to six months. No routine follow- up is required, but she should call if concerns arise. 2. Patient Query Regarding Prophylactic Antibiotics The patient inquired about needing prophylactic antibiotics for dental procedures. She was informed that antibiotics are not necessary as she did not have a joint replacement. Consent Patient was informed and verbally consented to the use of an ambient scribe for clinic note documentation during this visit. Orders: Orders XR hip RT min 2V Today M25.551 - Pain in right hip Coding Level of Care Code Global (89550) Diagnoses Subcapital fracture of right femur S72.011A
== END 2025-03-01 10:06 | disposition home or self-care (01) ==
LOC: HO.HOS 09:25
PROVIDERS: PCP Internal Medicine; Visit Provider Physician Assistant
DX: S72.011A Unspecified intracapsular fracture of right femur, initial encounter for closed fracture (principal)
CPT/HCPCS: 99024

== ENCOUNTER → 2025-03-01 09:32 | Outpatient (BNV) | payer MEDICARE, SELFPAY | PROVIDERS: Visit Provider Radiology Diagnostic Radiology | DX: M85.88 Other specified disorders of bone density and structure, other site (principal); Z96.641 Presence of right artificial hip joint | CPT/HCPCS: 73502 ==

== ENCOUNTER 2025-03-01 09:52 | Outpatient (REF) | payer MEDICARE, SELFPAY ==
--- NOTE | ~2025-03-01 | XR_ITS ---
EXAMINATION: XR HIP 2 OR MORE VIEWS RIGHT HISTORY: M25.551 - Pain in right hip COMPARISON: Comparison is made with the prior examination dated 01/17/2025. FINDINGS: A single AP view of the pelvis and two views of the right hip are submitted. The bones are osteopenic. The patient is again noted to be status post internal fixation of the right hip with 3 cannulated screws. No acute fracture or dislocation is seen. The joint space is maintained. The soft tissues are unremarkable. XR/XR hip RT min 2V IMPRESSION: Osteopenia. Internal fixation of the right hip. No acute abnormality. Electronically signed by: Orlin Kurtz MD 03/01/2025 09:42 AM EST
== END 2025-03-01 09:53 | disposition home or self-care (01) ==
LOC: HO.HOSX 09:52
PROVIDERS: Visit Provider Physician Assistant
DX: S72.91XD Unspecified fracture of right femur, subsequent encounter for closed fracture with routine healing (principal); X58.XXXD Exposure to other specified factors, subsequent encounter
CPT/HCPCS: 73502

== ENCOUNTER 2025-03-07 09:10 | Outpatient (AMB) | payer MEDICARE, SELFPAY ==
[2025-03-07 09:37] VITALS: BP 122/74; PULSE 73; TEMP 36.5; O2SAT 94; BMI 28.7
--- NOTE | 2025-03-07 09:37 | MHC.OFFWIV ---
Intake Vital Signs 03/07/25 09:37 Height 5 ft 2 in Weight 157 lb BMI 28.7 BP 122/74 Blood Pressure Location Lt brachial Position Sitting Pulse 73 Pulse Source Pulse Oximeter Temp 97.7 F Temp Source Oral Pulse Oximetry (%) 94 Oxygen Delivery Method Room Air Intake Visit Reasons: EP 2 wk itching on neck Intake Note: Patient presents c/o itching on neck x2 weeks. Has tried OTC cortisone with minor relief. Patient Tobacco Use Status: Never used Tobacco Allergies No Known Allergies Allergy (Verified 03/07/25 09:40) HPI HPI Comments History of Present Illness Details Patient is a 74o F who presents to office with neck itching Intermittent x 3 weeks States comes and goes Tried Cortisone OTC without relief Worse when touching it Scratching makes it worse No improving factors Denies skin color changes Nowhere else on body No dyspnea, throat tightness, swelling or difficulty swallowing No fever or chills Denies similar symptoms before Denies new lotions, perfume, clothing, soaps etc PFSH Medical History (Updated 03/07/25 @ 10:04 by Tanvi Jaramillo PA-C) History of fracture of right hip Hypertriglyceridemia Cough due to AMANDA inhibitor History of colon polyps Osteoporosis Dyslipidemia Essential hypertension Surgical History (Updated 02/06/25 @ 15:11 by SPENCER Marcial) History of surgery Hx of colonoscopy History of left breast biopsy History of laparoscopic cholecystectomy Family History Brother Diabetes mellitus Essential hypertension Sister Diabetes mellitus Essential hypertension Breast cancer, Onset Age: 70 Mother Essential hypertension Father Essential hypertension Social History Household Members: Children Housing: House Are you a primary primary care pediatrician to a significant other at home: No Do you presently have visiting nurse or other home services: No Patient Tobacco Use Status: Never used Tobacco e-Cigarette/Vaping Use: Never Used Second Hand Smoke Exposure: No service: No Current occupational status: retired Cognitive needs: No Hearing needs: No Vision needs: Yes Review of Systems Const Denies chills, Denies fatigue and Denies fever(s) ENT Denies dizziness, Denies nasal congestion, Denies neck pain, Denies sore throat, Denies throat swelling and Denies tongue swelling Card Denies chest pain and Denies dyspnea Resp Denies dyspnea Musc Denies neck pain and Denies numbness Skin/Breast Denies dry skin, Reports pruritus (neck x 3 weeks), Denies rash, Denies skin pain and Denies skin swelling Neuro Denies dizziness and Denies numbness Endo Denies fatigue Aller/Immun Denies throat swelling and Denies tongue swelling Physical Exam Exam Exam: General: Non-toxic, NAD. Speaking full sentences. Skin: Warm dry throughout. No neck edema, erythema, petechiae, lesions, excoriations. No thyroid enlargement or masses palpated Eye: EOMI HENT: Airway patent. Uvula midline. No pharyngeal erythema or edema. No SILK SPOOLER. Bilateral canals clear. TM non-erythematous, non-bulging. No TM perforation or hemotympanum noted. Respiratory: CTA bilaterally. No wheezes, rales or rhonchi Cardiac: RRR. No murmur MSK: Full ROM extremities. Neurology: Alert. No aphasia or facial droop. Gait without abnormality Psych: Good mood and affect Vital Signs: Last Vital Signs Temp 97.7 F 03/07/25 09:37 Pulse 73 03/07/25 09:37 BP 122/74 03/07/25 09:37 Pulse Ox 94 03/07/25 09:37 Oxygen Delivery Method Room Air 03/07/25 09:37 BMI result Body Mass Index 28.7 Assessment & Plan Assessment & Plan (1) Pruritic condition: Code(s): L29.9 - Pruritus, unspecified Plan: Patient seen and evaluated. No visible rashes on exam No oral involvement or respiratory concern She denies any known contact causing irritation Discussed avoiding perfumes/scented lotions, tight collars or really warm water on area for irritation No visible rash so will start antihistamine daily for this and can continue OTC hydrocortisone Dermatology referral given Patient gave verbal understanding and had no additional questions or concerns at time of discharge All questions answered Orders: Referrals Dermatology Referral L29.9 - Pruritus, unspecified Medications: New cetirizine (Zyrtec) can cause lethargy. No alcohol or driving under influence. Can take at night. 10 mg PO DAILY PRN 14 caps 0RF allergy symptoms Coding Level of Care Code Est Pt Level 3 (38798) Diagnoses Pruritic condition L29.9
--- OUTSIDE RECORDS SUMMARY | 2025-03-07 10:05 | XMS_ITS | Patient Health Record ---
Author Organization [facility] [employer] [facility] Address [address] [address] [place] [address] Care Team Providers Care Outreach Associate Name Role Phone Ross Gomes MD Primary Care Provider Unavaila ble Reason For Referral No Information Plan Of Treatment No Information
== END 2025-03-07 10:28 | disposition home or self-care (01) ==
PROVIDERS: Visit Provider Physician Assistant
DX: L29.9 Pruritus, unspecified (principal)

== ENCOUNTER → 2025-03-07 09:10 | Outpatient (BNVA) | payer MEDICARE, SELFPAY | PROVIDERS: Visit Provider Physician Assistant | DX: L29.9 Pruritus, unspecified (principal) | CPT/HCPCS: 99212 ==